=== PATIENT | female | born 1945 | race Caucasian/White ===

== ENCOUNTER → 2019-12-15 13:14 | Outpatient (CLI) | payer MEDICARE, SELFPAY ==
--- NOTE | ~2019-12-15 | MM_ITS ---
EXAMINATION: MM screening benedicto BI w [facility] HISTORY: Screening mammogram TECHNIQUE: Craniocaudal and mediolateral oblique 3-D tomosynthesis images were obtained and synthetic 2-D images were generated. CAD analysis was submitted and interpreted. COMPARISON: 05/14/2018 bilateral diagnostic mammogram and limited left breast ultrasound 05/19/2011 bilateral diagnostic digital mammogram 09/29/2014 bilateral digital screening mammogram BREAST PARENCHYMAL COMPOSITION: There are scattered areas of fibroglandular density. FINDINGS: There is a 5 mm mass with possible spiculation in the posterior lower inner right breast (M LO Tomosynthesis 48/77). Diagnostic right mammogram and right breast ultrasound examination are recom mended for further evaluation of this abnormality. Otherwise there is no evidence of suspicious mass, calcification, or architectural distortion to sugg est malignancy in either breast. There has been no suspicious interval change. IMPRESSION: 1. 5 mm mass in posterior lower inner right breast 2. Diagnostic right mammogram and right breast ultrasound examination are recommended. BI-RADS Category 0: Incomplete: Needs additional imaging evaluation. Reviewed, dictated and finalized at location A. IMPRESSION: 1. 5 mm mass in posterior lower inner right breast 2. Diagnostic right mammogram and right breast ultrasound examination are recom mended. BI-RADS Category 0: Incomplete: Needs additional imaging evaluation.
--- NOTE | ~2019-12-15 | DEXA_ITS ---
Bone Density Report Name: Radha Castellanos Age: 74 Sex: Female Ethnicity: White Date of : 1945 Indication: osteopenia; height loss; postmenopausal Referring Provider: Stef Luciano Study: Bone densitometry was performed. Exam Date: December 15, 2019 Accession number: [id number] Bone Density: Region BMD T-score Z-score Classification AP Spine (L1, L2) 0.917 -0.6 1.6 Normal Femoral Neck (Left) 0.629 -2.0 0.0 Osteopenia Total Hip (Left) 0.745 -1.6 0.1 Osteopenia Femoral Neck (Right) 0.656 -1.7 0.3 Osteopenia Total Hip (Right) 0.756 -1.5 0.2 Osteopenia Total Hip Mean 0.751 -1.6 0.2 Osteopenia World Health Organization criteria for BMD impression classify patients as: Normal (T-score at or above -1.0), Osteopenia (T-score between -1.0 and -2.5), or Osteoporosis (T-score at or below -2.5). 10-year Fracture Risk(1): Major Osteoporotic Fracture 12% Hip Fracture 2.7% Reported Risk Factors: [place] (), Neck BMD=0.629, BMI=30.9 (1) FRAX(R) Version 3.08. Fracture probability calculated for an untreated patient. Fracture probability may be lower if the patient has received treatment. Previous Exams: Region Exam Age BMD T-score BMD Change BMD Change Date g/cm2 vs Baseline vs Previous AP Spine(L1, L2) 12/15/2019 74 0.917 -0.6 0.012 -0.049* 11/02/2016 71 0.966 -0.1 0.061* 0.061* 09/29/2014 69 0.905 -0.7 Total Hip(Left) 12/15/2019 74 0.745 -1.6 -0.097* -0.099* 11/02/2016 71 0.844 -0.8 0.002 0.002 09/29/2014 69 0.842 -0.8 Total Hip(Right) 12/15/2019 74 0.756 -1.5 -0.054* -0.036* 11/02/2016 71 0.792 -1.2 -0.017 -0.017 09/29/2014 69 0.810 -1.1 *Denotes significance at 95% confidence level, LSC for AP Spine = 0.022 g/cm2, LSC for Total Hip = 0.027 g/cm2 Clinical Information Provided by Patient: Has used the following medications: Vitamin D, Calcium Patient maximum height was 66.5 Menopause Age: 59 No regular weight bearing exercise Drinks caffeinated beverages Onset of menses at age 11 Number of children 2 Impression: The patient has low bone mass, based on the Left Femoral Neck T-score. The patient has an estimated ten-year risk of hip fracture of 2.7% and an estimated ten-year risk of major fracture of 12%, based on the WHO FRAX algorithm. The BMD for the AP Spine(L1, L2) decreased, robins
== END ==
PROVIDERS: PCP Family Medicine; Visit Provider Family Medicine
DX: Z12.31 Encounter for screening mammogram for malignant neoplasm of breast (principal); N63.14 Unspecified lump in the right breast, lower inner quadrant; Z78.0 Asymptomatic menopausal state; M85.852 Other specified disorders of bone density and structure, left thigh; M85.851 Other specified disorders of bone density and structure, right thigh
CPT/HCPCS: 77063; 77067; 77080

== ENCOUNTER → 2019-12-29 07:34 | Outpatient (CLI) | payer MEDICARE, SELFPAY ==
--- NOTE | ~2019-12-29 | MMUS_ITS ---
EXAMINATION: MM diagnostic mammo unilat RT, US breast RT limited HISTORY: Right breast mass on screening mammogram TECHNIQUE: Additional 3-D tomosynthesis images of the right breast were performed and synthetic 2-D i mages were generated. CAD analysis was submitted and interpreted. High resolution limited right breas t ultrasound was performed. COMPARISON: 12/15/2019, 05/14/2018, 09/29/2014 FINDINGS: MAMMOGRAPHIC FINDINGS: There is a 5 mm round, equal density mass with possible spiculated margins in the middle third of inn er breast at the 3:00 location 6 cm deep to the nipple. ULTRASOUND: There is a 5 mm round, hypoechoic mass with indistinct margins and posterior acoustic shadowing in th e 3:00 location 4 cm from the nipple. No definite internal vascularity is identified. IMPRESSION: 1. Suspicious right breast mass. 2. Ultrasound-guided biopsy is recommended. BI-RADS category 4, suspicious findings. Reviewed, dictated and finalized at location A. IMPRESSION: 1. Suspicious right breast mass. 2. Ultrasound-guided biopsy is recommended. BI-RADS category 4, suspicious findings.
== END ==
PROVIDERS: PCP Family Medicine; Visit Provider Family Medicine
DX: R92.8 Other abnormal and inconclusive findings on diagnostic imaging of breast (principal)
CPT/HCPCS: 76642; 77065

== ENCOUNTER 2020-05-29 20:59 | Emergency (ER) | payer MEDICARE, SELFPAY ==
--- NOTE | ~2020-05-29 | XR_ITS ---
EXAMINATION: XR chest 2V DATE: 05/29/2020 21:20 INDICATION: Heart palpitations. TECHNIQUE: Frontal and lateral views of the chest were obtained. COMPARISON: Chest 2 views 08/29/2016 FINDINGS: A calcified right lung nodule is consistent with old granulomatous disease. There are mild airspace opacities in the lower lung zones. No pleural effusion or pneumothorax. Cardiomegaly is note d. There is a left shoulder arthroplasty. There are surgical clips in the anterior chest. IMPRESSION: 1. Mild airspace opacities in the lower lung zones, consistent with atelectasis or less likely pneumo tiffanie. 2. Cardiomegaly. Reviewed, dictated and finalized at location A. INSTALLER IMPRESSION: 1. Mild airspace opacities in the lower lung zones, consistent with atelectasis or less likely pneumonia. 2. Cardiomegaly.
[2020-05-29 21:03] VITALS: BP 185/116; PULSE 120; RESP 18; TEMP 36.4; O2SAT 97
--- NOTE | 2020-05-29 21:05 | ECG_ITS ---
Measurements Intervals [place] Rate: 97 P: FL: 0 QRS: -32 QRSD: 118 T: 114 QT: 375 QTc: 478 Interpretive Statements ATRIAL FIBRILLATION LEFT AXIS DEVIATION INTRAVENTRICULAR CONDUCTION DELAY LEFT VENTRICULAR HYPERTROPHY WITH ST-T CHANGE BORDERLINE R WAVE PROGRESSION, ANTERIOR LEADS ABNORMAL ECG Electronically Signed On 05-30-2020 7:55:49 CURTAIN INSPECTOR by Hao Dill D.O.
[2020-05-29 21:20] LABS: Basophils Percent Auto 0.5 % (0.2-1.2); Eosinophils Absolute Auto 0.3 K/mm3 (0-0.3); Eosinophils Percent Auto 3.2 % (0-4.4); Hematocrit 45.5 % (37.0-47.0); Hemoglobin 15.2 g/dL (12.0-15.0); Immature Granulocyte Absolute 0.02 K/mm3 (0.00-0.031); Immature Granulocyte Percent A 0.2 % (0-0.5); Lymphocytes Absolute Auto 2.85 K/mm3 (0.9-3.2); Lymphocytes Percent Auto 33.3 % (18.3-44.2); Mean Corpuscular HGB Conc 33.4 g/dl (32-36); Mean Corpuscular Hemoglobin 30.2 pg (26-34); Mean Corpuscular Volume 90.3 fl (80-100); Mean Platelet Volume 8.9 fl (7.4-10.4); Monocytes Absolute Auto 0.8 K/mm3 (0.1-0.6); Monocytes Percent Auto 9.4 % (2.6-8.5); Neutrophils Absolute Auto 4.6 K/mm3 (1.3-6.7); Neutrophils Percent Auto 53.4 % (45.5-73.1); Platelet Count Result 311 k/mm3 (150-375); Red Blood Count 5.04 M/mm3 (4.2-5.4); Red Cell Distribution Width 12.9 % (11.5-14.5); White Blood Count 8.6 K/mm3 (4.5-10.0)
[2020-05-29 21:29] LABS: INR 1.2; Prothrombin Time 16.1 Seconds (11.1-14.7)
--- NOTE | 2020-05-29 21:29 | ED.CHESTPAIN ---
HPI - Chest Pain General Chief Complaint: Chest Pain Stated Complaint: tightness in throat, heart racing. Time Seen by Provider: 05/29/20 21:04 Source: RN notes reviewed History of Present Illness HPI narrative: Patient presents emergency department from home for atrial fibrillation. Patient states she has history of paroxysmal atrial fibrillation she states that she got into A. fib last night and then to resolved on its own she states that this evening approximate hour ago she began to feel some tightness in her throat and felt that her heart again became irregular and faster she states she has taken all her medications today as prescribed and she is followed by Dr. Clark that [facility] for cardiology patient is on Eliquis which she has been taking she denies any fevers or chills shortness of breath abdominal pain nausea vomiting or any other symptoms. Patient states that she did just recently received radiation therapy for breast cancer Related Data Home Medications Medication Instructions Recorded Confirmed apixaban 5 mg tablet 5 mg PO BID 02/17/19 05/10/20 aspirin 81 mg tablet,delayed 81 mg PO DAILY 02/17/19 05/10/20 release cholecalciferol (vitamin D3) 50 2,000 unit PO DAILY 02/17/19 05/10/20 mcg (2,000 unit) tablet fluticasone propionate 50 2 spray NASAL DAILY 02/17/19 05/10/20 mcg/actuation nasal spray,suspension fyukzvjh-sgi-brseu ac 400 tablet PO 02/17/19 05/10/20 mcg-calcium carb 500 mg-vit K1 20 mcg tablet anastrozole 1 mg tablet 1 mg PO DAILY 05/10/20 05/10/20 Allergies Allergy/AdvReac Type Severity Reaction Status Date / Time esomeprazole Allergy Severe Itching Verified 05/29/20 21:28 lisinopril Allergy Severe coughing Verified 05/29/20 21:28 prob losartan Allergy Intermediate Unknown Verified 05/29/20 21:28 omeprazole Allergy Intermediate ITCHING Verified 05/29/20 21:28 Akqauml-Jve-Uzf Reductase Allergy Mild LEG PAIN Verified 05/29/20 21:28 Inhibitor Review of Systems Review of Systems: Narrative: Gen.: Denies fevers or chills ENT: Denies congestion Respiratory: Denies shortness of breath or cough CV: See HPI GI: Denies abdominal pain nausea, emesis or diarrhea Musculoskeletal: Denies back pain or muscle pain Neuro: Denies numbness, tingling, weakness or focal weakness Skin: Denies rash Except as documented, all other systems reviewed and negative [facility] Past Medical History Medical History Afib Sleep apnea, unspecified Wellness examination Surgical History Surgical History History of adenoidectomy History of bladder suspension procedure History of bunionectomy History of foot surgery History of nasal septoplasty History of shoulder replacement History of sinus surgery History of tonsillectomy Family History Family History Father Hypertension Patient's father is Family history of coronary artery disease Family history of heart disease in male family member before age 55 Sibling Patient's sister is in good health Patient's brother is in good health Family history of malignant neoplasm No family history of cardiovascular disease Patient's sister is Family history of cardiovascular disease, Onset Age: 75 Family history of lupus erythematosus Family history of pancreatic cancer Family history of coronary artery disease Family history of malignant neoplasm of stomach Family history of scoliosis Family history of heart disease in male family member before age 55 Mother Family history of heart disease in male family member before age 55 Patient's mother is Family history of coronary artery disease Grandparent Family history of heart disease in male family member before age 55 Social History Social History (Reviewed 05/29/20 @ 21:30 by Glynn Childers
[2020-05-29 21:30] LABS: Partial Thromboplastin Time 38.3 SECONDS (22.3-36.8)
[2020-05-29 21:31] LABS: Anion Gap 7 mmol/L (8-16); Blood Urea Nitrogen 19 mg/dL (7-17); Calcium 9.4 mg/dL (8.4-10.2); Carbon Dioxide 31 mmol/L (22-30); Chloride 100 mmol/L (98-107); Estimated CRCL calculation 53 ml/min; Estimated Glomerular Filt Rate > 60; Glucose 99 mg/dL (65-105); Potassium 3.5 mmol/L (3.4-5.0); Sodium 138 mmol/L (137-145)
[2020-05-29] MEDS: ASPIRIN 81 MG CHEWABLE TABLET 324 MG PO (21:38)
[2020-05-29 21:43] LABS: Troponin I < 0.012 ng/mL (0.000-0.034)
[2020-05-29] MEDS: dilTIAZem HCl INJ 25 MG/5 ML VIAL 5 MG IV PUSH (22:22)
[2020-05-29 22:27] VITALS: BP 115/73; PULSE 94; RESP 23; O2SAT 95
--- NOTE | 2020-05-29 23:10 | ECG_ITS ---
Measurements Intervals [place] Rate: 69 P: 46 [place]: 249 QRS: -35 QRSD: 113 T: 102 QT: 411 QTc: 442 Interpretive Statements SINUS RHYTHM WITH FIRST DEGREE AV BLOCK LEFT AXIS DEVIATION LEFT VENTRICULAR HYPERTROPHY WITH ST-T CHANGE BORDERLINE R WAVE PROGRESSION, ANTERIOR LEADS ABNORMAL ECG Electronically Signed On 05-30-2020 7:58:22 PHYSICAL THERAPY INSTRUCTOR by Hao Dill D.O.
[2020-05-29 23:11] VITALS: BP 130/75; PULSE 71; RESP 24; O2SAT 93
[2020-05-29 23:36] VITALS: BP 112/55; PULSE 69; RESP 20; O2SAT 94
[2020-05-30 00:16] VITALS: BP 127/61; PULSE 60; RESP 20; O2SAT 94
[2020-05-30 00:38] LABS: Troponin I < 0.012 ng/mL (0.000-0.034)
== END 2020-05-30 01:16 | disposition home or self-care (01) ==
PROVIDERS: Emergency Provider Emergency Medicine; PCP Family Medicine
DX: I48.0 Paroxysmal atrial fibrillation (principal); Z79.82 Long term (current) use of aspirin; Z79.01 Long term (current) use of anticoagulants; G47.30 Sleep apnea, unspecified; Z96.619 Presence of unspecified artificial shoulder joint
CPT/HCPCS: 36415; 71046; 80048; 84484; 85025; 85610; 85730; 93005; 96374; 99284; A9270

== ENCOUNTER 2021-03-04 09:08 | Outpatient (CLI) | payer MEDICARE, SELFPAY ==
--- NOTE | ~2021-03-04 | XR_ITS ---
XR chest 2V 03/04/2021 09:31 Indication: Cough Procedure: 2 view chest Comparison: Comparison to multiple prior studies sequentially, with oldest reviewed study dated 06/2015. Findings: Borderline heart size. There is lingular and right lower lobe atelectasis. There are cholec ystectomy clips. Calcified granuloma right mid thorax. No focal pneumonia, edema, pleural effusion or pneumothorax. There is a left shoulder arthroplasty. Impression: 1: Bibasilar atelectasis. Reviewed, dictated and finalized at location A. [place] ASSOCIATE MANAGER BILINGUAL Impression: 1: Bibasilar atelectasis.
== END 2021-03-04 09:09 | disposition home or self-care (01) ==
LOC: ANHIMG 09:16
PROVIDERS: PCP Family Medicine; Visit Provider Family Medicine
DX: R05.9 Cough, unspecified (principal); J98.11 Atelectasis
CPT/HCPCS: 71046

== ENCOUNTER 2021-03-15 14:15 | Outpatient (CLI) | payer MEDICARE, SELFPAY | END 2021-03-15 14:16 | disposition home or self-care (01) | PROVIDERS: PCP Family Medicine; Visit Provider Physician Assistant | DX: R05.9 Cough, unspecified (principal); R11.10 Vomiting, unspecified | CPT/HCPCS: 87081 ==

== ENCOUNTER 2021-04-18 10:22 | Outpatient (CLI) | payer MEDICARE, SELFPAY ==
--- NOTE | ~2021-04-18 | XR_ITS ---
EXAMINATION: XR barium swallow modified DATE: 04/18/2021 11:25 INDICATION: Dysphagia. TECHNIQUE: The patient was given barium-containing material of multiple consistencies to swallow by susanne chawla speech pathologist while I performed fluoroscopy. Dose-area product was 1.097 Gy-cm2. 1.7 minutes fluoroscopy time FINDINGS: Oral Stage: Within functional limits Pharyngeal Phase: Within functional limits Cervical/Esophageal Stage: Within functional limits IMPRESSION: Modified esophagram findings as above. Please refer to the speech therapy report for [facility] recommendations. Reviewed, dictated and finalized at Location A. Reviewed, dictated and finalized at location A. OPERATOR IMPRESSION: Modified esophagram findings as above. Please refer to the speech t herapy report for specific recommendations.
--- NOTE | 2021-04-18 11:42 | STOPEVAL ---
Thank you for referring Radha Castellanos to [facility].? Attending Provider: CULLEN Park Assessment Status Evaluation Outpatient Past Medical History Past Medical History No Past Medical/Surgical History Patient/Family Denies Significant Past Medical/ Surgical History Source of Past Medical History Patient Evaluation Information Problem Diagnosis Cough Onset 02/21/21 Subjective Information Patient reports she began Query Text:As Reported By Patient/ coughing frequently on 02/21 Family or 02/22 and coughed until 03/24 . She reports that her physician placed her on Omeprazole at that time and it significantly decreased the cough. She reports she feels like there is something in her throat causing her to have to clear her throat frequently and that occasionally when she swallows, she cannot catch her breath. She denies difficulty swallowing food but occasionally has difficulty swallowing liquids. Pain Assessment Timing of Pain Assessment Timing of Pain Assessment Assessment Self Report Self Report Pain Level 0 Pain Score Pain Score 0: Self Report ST Clinical Summary Clinical Summary ST Clinical Summary MODIFIED BARIUM SWALLOW Results indicate this patient' s swallowing skills are within normal limits. Of note was esophageal residue in the cervical esophagus (top 1/3rd of the esophagus) that required extra time to drain after swallowing. This may require additional evaluation to determine if this contributes to patient's complaints. Basic reflux guidelines were discussed including small meals and snacks, small bites and sips, allow time after each swallow for residual to clear, avoid spicy foods, caffeine, and citrus foods. Patient voiced understanding of recommendations. She is
--- NOTE | 2021-04-18 15:47 | STOPEVAL ---
Thank you for referring Radha Castellanos to [facility].? Attending Provider: Denise Guadalupe, PAC Therapy Assessment Status Assessment Status Assessment Status Evaluation Outpatient Past Medical History Past Medical History No Past Medical/Surgical History Patient/Family Denies Significant Past Medical/ Surgical History Source of Past Medical History Patient Evaluation Information Problem Diagnosis Cough Onset 02/21/21 Subjective Information Patient reports she began Query Text:As Reported By Patient/ coughing frequently on 02/21 Family or 02/22 and coughed until 03/24 . She reports that her physician placed her on Omeprazole at that time and it significantly decreased the cough. She reports she feels like there is something in her throat causing her to have to clear her throat frequently and that occasionally when she swallows, she cannot catch her breath. She denies difficulty swallowing food and that occasionally, she has difficulty swallowing liquids. Pain Assessment Timing of Pain Assessment Timing of Pain Assessment Assessment Self Report Self Report Pain Level 0 Pain Score Pain Score 0: Self Report Modified Barium Swallow Evaluation Consistency Solid Consistency 5 mL Method of Presentation Spoon Oral Preparatory Symptoms Within Functional Limits Oral Phase Symptoms Within Functional Limits Pharyngeal Phase Symptoms Within Functional Limits Severity of Vallecular Residue None - 0% No Residue Severity of Pyriform Sinus Residue None - 0% No Residue 8 Point Laryngeal Penetration-Aspiration Material Does Not Enter Airway Scale Cervical/Esophageal Symptoms Within Functional Limits Cervical/Esophageal Phase Comments trace residue in cervical esophagus Mixed Consistency 5 mL Method of Presentation Spoon Oral Preparatory Symptoms Within Functional Limits Oral Phase Symptoms Within Functional Limits, Premature Spillage Pharyngeal Phase Symptoms Within Functional Limits Severity of Vallecular Residue None - 0% No Residue Severity of Pyriform Sinus Residue None - 0% No Residue 8 Point Laryngeal Penetration-Aspiration Material Does Not Enter Airway Scale Cervical/Esophageal Symptoms Within Functional Limits Pureed Consistency 5 mL Method of Presentation Spoon
== END 2021-04-18 10:23 | disposition home or self-care (01) ==
LOC: ANHIMG 10:26
PROVIDERS: PCP Family Medicine; Visit Provider Physician Assistant
DX: R05.9 Cough, unspecified (principal)
CPT/HCPCS: 92611

== ENCOUNTER → 2022-02-01 12:11 | Outpatient (CLI) | payer MEDICARE, SELFPAY ==
--- NOTE | ~2022-02-01 | DEXA_ITS ---
Bone Density Report Name: JOHN LINO Age: 76 Sex: Female Ethnicity: White Date of : 1945 Indication: osteopenia; height loss; cancer; postmenopausal Referring Provider: ANGELICA CAPPS Study: Bone densitometry was performed. Exam Date: February 01, 2022 Accession number: [id number] Bone Density: Region BMD T-score Z-score Classification AP Spine (L1, L2) 1.007 0.3 2.6 Normal Femoral Neck (Left) 0.675 -1.6 0.6 Osteopenia Total Hip (Left) 0.807 -1.1 0.7 Osteopenia Femoral Neck (Right) 0.656 -1.7 0.4 Osteopenia Total Hip (Right) 0.763 -1.5 0.4 Osteopenia Total Hip Mean 0.785 -1.3 0.6 Osteopenia World Health Organization criteria for BMD impression classify patients as: Normal (T-score at or above -1.0), Osteopenia (T-score between -1.0 and -2.5), or Osteoporosis (T-score at or below -2.5). 10-year Fracture Risk(1): Major Osteoporotic Fracture 12% Hip Fracture 2.6% Reported Risk Factors: [place] (), Neck BMD=0.656, BMI=33.1 (1) FRAX(R) Version 3.08. Fracture probability calculated for an untreated patient. Fracture probability may be lower if the patient has received treatment. Previous Exams: Region Exam Age BMD T-score BMD Change BMD Change Date g/cm2 vs Baseline vs Previous AP Spine(L1, L2) 02/01/2022 76 1.007 0.3 0.102* 0.090* 12/15/2019 74 0.917 -0.6 0.012 -0.049* 11/02/2016 71 0.966 -0.1 0.061* 0.061* 09/29/2014 69 0.905 -0.7 Total Hip(Left) 02/01/2022 76 0.807 -1.1 -0.036* 0.061* 12/15/2019 74 0.745 -1.6 -0.097* -0.099* 11/02/2016 71 0.844 -0.8 0.002 0.002 09/29/2014 69 0.842 -0.8 Total Hip(Right) 02/01/2022 76 0.763 -1.5 -0.046* 0.007 12/15/2019 74 0.756 -1.5 -0.054* -0.036* 11/02/2016 71 0.792 -1.2 -0.017 -0.017 09/29/2014 69 0.810 -1.1 *Denotes significance at 95% confidence level, LSC for AP Spine = 0.022 g/cm2, LSC for Total Hip = 0.027 g/cm2 Clinical Information Provided by Patient: Has used the following medications: Vitamin D, Calcium Has the following medical conditions: Cancer Patient maximum height was 66.5 Menopause Age: 59 No regular weight bearing exercise Onset of menses at age 11 Number of children 2 Impression: The patient has low bone mass, based on the Right Femoral N
== END ==
PROVIDERS: PCP Family Medicine; Visit Provider Physician Assistant
DX: M85.852 Other specified disorders of bone density and structure, left thigh (principal); M85.851 Other specified disorders of bone density and structure, right thigh
CPT/HCPCS: 77080

== ENCOUNTER 2022-05-26 14:16 | Outpatient (CLI) | payer MEDICARE, SELFPAY ==
--- NOTE | ~2022-05-26 | XR_ITS ---
EXAMINATION: XR chest 2V DATE: 05/26/2022 14:37 INDICATION: Productive cough x2 weeks of pharyngitis TECHNIQUE: PA and lateral views of the chest were obtained. COMPARISON: Chest radiograph dated 03/04/21 FINDINGS: Unchanged small band of lingular atelectasis/scarring near the apex of the heart. Calcified nodule in the right midlung zone and calcified right hilar lymph nodes consistent with old granulomatous disea se. No other airspace opacities, pulmonary edema, pleural effusion or pneumothorax. Medically. Tortuo us thoracic aorta. Surgical clips at the right breast and right axilla suggesting prior breast excisi onal biopsy and axillary lymph node dissection. Left total shoulder arthroplasty. Mild S-shaped scoli osis of the thoracolumbar spine with mild to moderate spondylosis. IMPRESSION: 1. Unchanged mild lingular atelectasis/scarring. No acute cardiopulmonary disease. 2. Cardiomegaly. Reviewed, dictated and finalized at location A. PMENT STERILIZER IMPRESSION: 1. Unchanged mild lingular atelectasis/scarring. No acute cardiopulmonary disea se. 2. Cardiomegaly.
== END 2022-05-26 14:17 | disposition home or self-care (01) ==
LOC: ANHIMG 14:21
PROVIDERS: PCP Family Medicine; Visit Provider Physician Assistant
DX: R05.9 Cough, unspecified (principal); I51.7 Cardiomegaly
CPT/HCPCS: 71046

== ENCOUNTER 2022-06-27 01:30 | Day surgery (SDC) | payer MEDICARE, SELFPAY ==
[2022-06-19 12:10] VITALS: BMI 29.9
[2022-06-27 10:30] VITALS: BP 138/64; PULSE 63; RESP 20; TEMP 36.6; O2SAT 98; BMI 30.3
[2022-06-27] MEDS: LACTATED RINGERS 1,000 ML 150 ML IV CONT (10:45)
--- NOTE | 2022-06-27 10:58 | PM.HPGS ---
History of Present Illness History of Present Illness Consent: Risks, benefits, and alternatives have been discussed and questions answered. Patient agrees to proceed with procedure. Chief complaint: GERD Narrative: Radha Castellanos is a 77 year old female Referred for EGD. Patient complains of excess saliva and raspy voice. She also complains of occasional sour taste in her mouth in the mornings. She denies any shaquille regurgitation sensation. She has no heartburn. Recently was given a trial of pantoprazole 40mg p.o. b.i.d. and famotidine at bedtime. She felt that the famotidine helped to a small degree. Patient denies any difficulty swallowing. She has had no weight loss or bleeding. EGD is requested to assess these constellation of symptoms. Family history noncontributory. Review of Systems Review of Systems: Review of systems noncontributory. [facility] Past Medical History Medical History Afib NSTEMI (non-ST elevated myocardial infarction) Sleep apnea, unspecified Wellness examination Surgical History Surgical History History of adenoidectomy History of bladder suspension procedure History of bunionectomy History of foot surgery History of nasal septoplasty History of shoulder replacement History of sinus surgery History of tonsillectomy Family History Family History Father Hypertension Patient's father is Family history of coronary artery disease Family history of heart disease in male family member before age 55 Sibling Patient's sister is in good health Patient's brother is in good health Family history of malignant neoplasm No family history of cardiovascular disease Patient's sister is Family history of cardiovascular disease, Onset Age: 75 Family history of lupus erythematosus Family history of pancreatic cancer Family history of coronary artery disease Family history of malignant neoplasm of stomach Family history of scoliosis Family history of heart disease in male family member before age 55 Mother Family history of heart disease in male family member before age 55 Patient's mother is Family history of coronary artery disease Grandparent Family history of heart disease in male family member before age 55 Social History Social History Social History: Smoking status: Never smoker Second hand tobacco smoke exposure: No Alcohol intake: never Substance use: never Substance use type: does not use Living arrangements: alone Occupation/Education: retired Gender identity (if verbalized by the patient): Female Sexual Orientation (if Verbalized by the Patient): Straight or Heterosexual Spiritual care concerns: No Meds Home Medications and Allergies Home Medications Medication Instructions Recorded Confirmed Type xfahgyxp-eiz-huceo ac 400 1 tablet PO DAILY 02/17/19 06/19/22 History mcg-calcium carb 500 mg-vit K1 20 mcg tablet (Women's 50 Plus Multivitamin) tamoxifen 20 mg tablet 20 mg PO DAILY 11/08/20 06/19/22 History vit C 250 mg-vit E 90 mg-zinc 40 1 tablet PO BID 07/05/21 06/19/22 History mg-copper 1 cx-zdeawz-xcwlru capsule (PreserVision AREDS-2) calcium carbonate 600 mg-vitamin 1 cap PO BID 09/01/21 06/19/22 History D3 12.5 mcg (500 unit) capsule (Calcium 600 with Vitamin D3) carboxymethylcellulose sodium 0.5 1 drp EACH EYE QID PRN Dry Eye(S) 09/01/21 06/19/22 History % eye drops in a dropperette (Refresh Plus) apixaban 5 mg tablet 5 mg Tablet#56 Samples 10/20/21 06/19/22 Sample tramadol 50 mg tablet 50 mg PO Q8H PRN pain #30 tabs 10/20/21 06/19/22 Rx sotalol 80 mg tablet 40 mg PO BID 11/10/21 06/19/22 History hydrochlorothiazide 25 mg tablet 25 mg PO DAILY #90 tabs
--- NOTE | 2022-06-27 11:29 | WPDANESEPPF ---
Anes - Initial Pre Proc Eval Procedure: Operation Date: 06/27/22 11:30 Proposed Procedures p Esophagogastroduodenoscopy - Samy Kwon MD Date/Time: 06/27/22 11:29 Surgeon: Samy Kwon MD Pre Op Diagnosis: GERD Patient Data Age: 77 Gender: F Height: 1.68 m Weight: 85.3 kg Last Vital Signs Temp 97.8 F 06/27/22 10:30 Pulse 63 06/27/22 10:30 Resp 20 06/27/22 10:30 BP 138/64 06/27/22 10:30 Pulse Ox 98 06/27/22 10:30 O2 Del Method Room Air 06/27/22 10:30 Allergies Allergy/AdvReac Type Severity Reaction Status Date / Time acetaminophen [From Vicodin] Allergy Severe Other Verified 06/27/22 10:29 esomeprazole Allergy Severe Itching Verified 06/27/22 10:29 hydrocodone [From Vicodin] Allergy Severe Other Verified 06/27/22 10:29 lisinopril Allergy Severe coughing Verified 06/27/22 10:29 prob niacin Allergy Severe Redness of Verified 06/27/22 10:29 Skin omeprazole Allergy Severe ITCHING Verified 06/27/22 10:29 amlodipine Allergy Intermediate lower Verified 06/27/22 10:29 extremity edema chlorhexidine Allergy Intermediate Rash Verified 06/27/22 10:29 [From Hibiclens] losartan Allergy Intermediate Itching Verified 06/27/22 10:29 Mmssskw-QIS-RgO Reductase Allergy Intermediate LEG PAIN Verified 06/27/22 10:29 Inhibitor [Hbknkgn-Vjy-Acb Reductase Inhibitor] EKG PATCHES Allergy Severe Blister Uncoded 06/27/22 10:29 Home Medications Medication Instructions Recorded Confirmed Type brvuzaip-wxr-vawfx ac 400 1 tablet PO DAILY 02/17/19 06/19/22 History mcg-calcium carb 500 mg-vit K1 20 mcg tablet (Women's 50 Plus Multivitamin) tamoxifen 20 mg tablet 20 mg PO DAILY 11/08/20 06/19/22 History vit C 250 mg-vit E 90 mg-zinc 40 1 tablet PO BID 07/05/21 06/19/22 History mg-copper 1 mv-mtllqy-uvzxdf capsule (PreserVision AREDS-2) calcium carbonate 600 mg-vitamin 1 cap PO BID 09/01/21 06/19/22 History D3 12.5 mcg (500 unit) capsule (Calcium 600 with Vitamin D3) carboxymethylcellulose sodium 0.5 1 drp EACH EYE QID PRN Dry Eye(S) 09/01/21 06/19/22 History % eye drops in a dropperette (Refresh Plus) apixaban 5 mg tablet 5 mg Tablet#56 Samples 10/20/21 06/19/22 Sample tramadol 50 mg tablet 50 mg PO Q8H PRN pain #30 tabs 10/20/21 06/19/22 Rx sotalol 80 mg tablet 40 mg PO BID 11/10/21 06/19/22 History hydrochlorothiazide 25 mg tablet 25 mg PO DAILY #90 tabs 04/19/22 06/19/22 Rx spironolactone 25 mg tablet 25 mg PO DAILY #90 tabs 04/19/22 06/19/22 Rx pantoprazole 40 mg tablet,delayed 40 mg PO BID #180 tabs 06/12/22 06/19/22 Rx release ammonium lactate 12 % topical cream 1 applic topical DAILY PRN DRYNESS 06/19/22 06/19/22 History ascorbic acid (vitamin C) 2,000 mg 2,000 mg PO DAILY 06/19/22 06/19/22 History tablet,extended release diphenhydramine 25 2 tablet PO HS 06/19/22 06/19/22 History mg-acetaminophen 500 mg tablet (Tylenol PM Extra Strength) famotidine 40 mg tablet 40 mg PO HS 06/19/22 06/19/22 History fluticasone propionate 50 1 spray intranasal DAILY PRN 06/19/22 06/19/22 History mcg/actuation nasal Congestion spray,suspension phenolphthalein-docusate sodium 65 1 tablet PO HS PRN Constipation 06/19/22 06/19/22 History mg-100 mg tablet Patient hx anesthesia problems: none Family hx anesthesia problems: none Results Review: All pre-operative results and documents have been reviewed as part of the pre-operative evaluation. [facility] Past Medical History Medical History Afib NSTEMI (non-ST elevated myocardial infarction) Sleep apnea, unspecified Wellness examination Surgical History Surgical History History of adenoidectomy History of bladder suspension procedure History of bunionectomy History of foot surgery History of nasal septoplasty History of shoulder replacement History of sinus neal
[2022-06-27 11:46] VITALS: BP 101/57; PULSE 53; RESP 20; O2SAT 99
[2022-06-27 11:56] VITALS: BP 112/64; PULSE 54; RESP 20; O2SAT 97
[2022-06-27 12:06] VITALS: BP 146/66; PULSE 57; RESP 17; O2SAT 98
== END 2022-06-27 12:28 | disposition home or self-care (01) ==
PROVIDERS: PCP Family Medicine; Visit Provider Internal Medicine Gastroenterology
PROC: 0DJ08ZZ Inspection of Upper Intestinal Tract, Via Natural or Artificial Opening Endoscopic (ICD-10-PCS; CPT 43235; principal; 2022-06-27 11:30)
DX: K21.9 Gastro-esophageal reflux disease without esophagitis (principal); I48.91 Unspecified atrial fibrillation; I25.2 Old myocardial infarction; G47.30 Sleep apnea, unspecified; Z79.01 Long term (current) use of anticoagulants
CPT/HCPCS: 43239; 87081; J2704; J7120

== ENCOUNTER → 2022-09-12 14:19 | Outpatient (CLI) | payer MEDICARE, SELFPAY ==
--- NOTE | ~2022-09-12 | XR_ITS ---
XR ribs LT 2V w CXR 2V DATE: 09/12/2022 14:51 INDICATION: Left chest pain, pleurodynia TECHNIQUE: PA and lateral chest. 3 views of the left ribs. COMPARISON: None FINDINGS: Cardiomegaly. Aortic calcification, ectasia, unfolding. No pulmonary infiltrate or consolidation, pleural effusion or pulmonary vascular congestion or pneumo thorax. No left rib fracture or bone destruction is detected. Osteopenia. Mild thoracic dextroscoliosis. Mild degenerative spurring of the thoracic spine. There is prominent rotatory dextroscoliosis and multilevel degenerative disc disease of the lumbar sp ine. Right surgical clips right breast. Status post left glenohumeral joint replacement. IMPRESSION: No left rib fracture or bone destruction is detected Scoliosis and degenerative changes of the thoracic and lumbar spine Osteopenia Cardiomegaly, aortic atherosclerosis, ectasia Postoperative change of the right breast Status post left glenohumeral joint replacement Reviewed, dictated and finalized at location A.
== END ==
PROVIDERS: PCP Family Medicine; Visit Provider Physician Assistant
DX: R07.81 Pleurodynia (principal); M85.88 Other specified disorders of bone density and structure, other site; I51.7 Cardiomegaly; M41.9 Scoliosis, unspecified
CPT/HCPCS: 71046; 71100

== ENCOUNTER 2023-04-11 01:25 | Day surgery (SDC) | payer MEDICARE, SELFPAY ==
[2023-03-30 12:18] VITALS: BMI 30.7
--- NOTE | 2023-03-30 13:03 | PC.NURSE ---
Spoke with patient regarding medication Eliquis. Pt. verbalizes understanding that the last dose of _Eliquis is to be taken on 04/08/2023 and the Endoscopist will instruct them when to restart after the procedure.
--- NOTE | 2023-04-09 08:43 | SUR.PREOP ---
Patient called regarding upcoming procedure. Reviewed preop instructions, appointment times, and procedure prep.
[2023-04-11 07:12] VITALS: BP 102/49; PULSE 71; RESP 18; TEMP 36.5; O2SAT 97
[2023-04-11] MEDS: LACTATED RINGERS 1,000 ML 150 ML IV CONT (07:14)
--- NOTE | 2023-04-11 07:45 | WPDANESEPPF ---
Anes - Initial Pre Proc Eval Procedure: Operation Date: 04/11/23 08:00 Proposed Procedures p Colonoscopy - Teja Paige MD Date/Time: 04/11/23 07:45 Surgeon: Teja Paige MD Pre Op Diagnosis: hx colon polyps Patient Data Age: 78 Gender: F Height: 1.68 m Weight: 87 kg Last Vital Signs Temp 97.7 F 04/11/23 07:12 Pulse 71 04/11/23 07:12 Resp 18 04/11/23 07:12 BP 102/49 L 04/11/23 07:12 Pulse Ox 97 04/11/23 07:12 O2 Del Method Room Air 04/11/23 07:12 Allergies Allergy/AdvReac Type Severity Reaction Status Date / Time esomeprazole Allergy Severe Itching Verified 04/11/23 07:10 hydrocodone [From Vicodin] Allergy Severe Other Verified 04/11/23 07:10 lisinopril Allergy Severe coughing Verified 04/11/23 07:10 prob niacin Allergy Severe Redness of Verified 04/11/23 07:10 Skin omeprazole Allergy Severe ITCHING Verified 04/11/23 07:10 amlodipine Allergy Intermediate lower Verified 04/11/23 07:10 extremity edema chlorhexidine Allergy Intermediate Rash Verified 04/11/23 07:10 [From Hibiclens] losartan Allergy Intermediate Itching Verified 04/11/23 07:10 Bbviaui-XAS-QkV Reductase Allergy Intermediate LEG PAIN Verified 04/11/23 07:10 Inhibitor [Zfmothh-Zvl-Xtc Reductase Inhibitor] EKG PATCHES Allergy Severe Blister Uncoded 04/11/23 07:10 Home Medications Medication Instructions Recorded Confirmed Type pbuintoy-jur-rfvrx ac 400 1 tablet PO DAILY 02/17/19 03/30/23 History mcg-calcium carb 500 mg-vit K1 20 mcg tablet (Women's 50 Plus Multivitamin) tamoxifen 20 mg tablet 20 mg PO DAILY 11/08/20 03/30/23 History vit C 250 mg-vit E 90 mg-zinc 40 1 tablet PO BID 07/05/21 03/30/23 History mg-copper 1 cj-zfofxn-fwdacy capsule (PreserVision AREDS-2) calcium carbonate 600 mg-vitamin 1 cap PO BID 09/01/21 03/30/23 History D3 12.5 mcg (500 unit) capsule (Calcium 600 with Vitamin D3) carboxymethylcellulose sodium 0.5 1 drp EACH EYE QID PRN Dry Eye(S) 09/01/21 03/30/23 History % eye drops in a dropperette (Refresh Plus) sotalol 80 mg tablet 40 mg PO DAILY 11/10/21 03/30/23 History hydrochlorothiazide 25 mg tablet 25 mg PO DAILY #90 tabs 04/19/22 03/30/23 Rx spironolactone 25 mg tablet 25 mg PO DAILY #90 tabs 04/19/22 03/30/23 Rx ascorbic acid (vitamin C) 2,000 mg 2,000 mg PO DAILY 06/19/22 03/30/23 History tablet,extended release fluticasone propionate 50 1 spray intranasal DAILY PRN 06/19/22 03/30/23 History mcg/actuation nasal Congestion spray,suspension famotidine 40 mg tablet 40 mg PO HS #90 tabs 10/26/22 03/30/23 Rx baclofen 10 mg tablet 10 mg PO BID PRN muscle spasm #30 03/28/23 03/30/23 Rx tabs acetaminophen 650 mg 650 mg PO Q6H 03/30/23 03/30/23 History tablet,extended release apixaban 5 mg tablet (Eliquis) 5 mg PO BID 03/30/23 04/11/23 History Patient hx anesthesia problems: none Family hx anesthesia problems: none Results Review: All pre-operative results and documents have been reviewed as part of the pre-operative evaluation. [facility] Past Medical History Medical History Afib NSTEMI (non-ST elevated myocardial infarction) Sleep apnea, unspecified Wellness examination Surgical History Surgical History History of adenoidectomy History of bladder suspension procedure History of bunionectomy History of foot surgery History of nasal septoplasty History of shoulder replacement History of sinus surgery History of tonsillectomy Family History Family History Father Hypertension Patient's father is Family history of coronary artery disease Family history of heart disease in male family member before age 55 Sibling Patient's sister is in good health Patient's brother is in good health
--- NOTE | 2023-04-11 07:56 | PM.HPGS ---
History of Present Illness History of Present Illness Consent: Risks, benefits, and alternatives have been discussed and questions answered. Patient agrees to proceed with procedure. Chief complaint: hx colon polyps Narrative: Radha Castellanos is a 78 year old female with colon polyp 5 years ago Review of Systems Constitutional: Constitutional: Denies headache(s) and Denies weakness Eyes: Eyes: Denies blurry vision ENT: Reports Normal hearing present, Denies headache(s) and Denies neck pain Cardiovascular: Cardiovascular: Denies chest pain and Denies dyspnea Respiratory: Respiratory: Denies dyspnea Gastrointestinal: Gastrointestinal: Reports no additional gastrointestinal complaints Genitourinary: Genitourinary: Denies dysuria Musculoskeletal: Musculoskeletal: Denies neck pain Integumentary/Breasts: Skin/Breast: Denies dry skin Neurologic: Reports Normal hearing present, Denies headache(s) and Denies weakness Psychiatric: Psychiatric: Denies anxiety Endocrine: Endocrine: Denies change in body appearance Hematologic/Lymphatic: Hematologic/Lymphatic: Denies easy bleeding Allergic/Immunologic: Allergic/Immunologic: Denies urticaria [facility] Past Medical History Medical History (Updated 04/11/23 @ 07:57 by Teja Paige MD) Afib Colon polyp NSTEMI (non-ST elevated myocardial infarction) Sleep apnea, unspecified Wellness examination Surgical History Surgical History History of adenoidectomy History of bladder suspension procedure History of bunionectomy History of foot surgery History of nasal septoplasty History of shoulder replacement History of sinus surgery History of tonsillectomy Family History Family History Father Hypertension Patient's father is Family history of coronary artery disease Family history of heart disease in male family member before age 55 Sibling Patient's sister is in good health Patient's brother is in good health Family history of malignant neoplasm No family history of cardiovascular disease Patient's sister is Family history of cardiovascular disease, Onset Age: 75 Family history of lupus erythematosus Family history of pancreatic cancer Family history of coronary artery disease Family history of malignant neoplasm of stomach Family history of scoliosis Family history of heart disease in male family member before age 55 Mother Family history of heart disease in male family member before age 55 Patient's mother is Family history of coronary artery disease Grandparent Family history of heart disease in male family member before age 55 Social History Social History Social History: Smoking status: Never smoker Second hand tobacco smoke exposure: No Alcohol intake: never Substance use: never Substance use type: does not use Lack of Transportation: No Lack of Food: Never True Current Housing: I Have Housing Concerned About Future Housing: No Difficulty Paying Gas/Electric Bills: No Difficulty Paying for Meds: No Currently Unemployed: YES Education: Decline to Answer Difficulty w/ Childcare or Family Care: No Living arrangements: with family Occupation/Education: retired Gender identity (if verbalized by the patient): Female Sexual Orientation (if Verbalized by the Patient): Straight or Heterosexual Spiritual care concerns: No Meds Home Medications and Allergies Home Medications Medication Instructions Recorded Confirmed Type pqmultyu-pxl-ylavk ac 400 1 tablet PO DAILY 02/17/19 03/30/23 History mcg-calcium carb 500 mg-vit K1 20 mcg tablet (Women's 50 Plus Multivitamin) tamoxifen 20 mg tablet 20 mg PO DAILY 11/08/20 03/30/23 History vit C 250 mg-vit E 90 mg-zinc 40 1 table
[2023-04-11 08:25] VITALS: BP 117/55; PULSE 58; RESP 22; O2SAT 95
[2023-04-11 08:35] VITALS: BP 110/59; PULSE 59; RESP 21; O2SAT 98
[2023-04-11 08:45] VITALS: BP 135/59; PULSE 58; RESP 20; O2SAT 100
== END 2023-04-11 08:50 | disposition home or self-care (01) ==
PROVIDERS: PCP Family Medicine; Referring Provider Physician Assistant; Visit Provider Internal Medicine Gastroenterology
PROC: 0DJD8ZZ Inspection of Lower Intestinal Tract, Via Natural or Artificial Opening Endoscopic (ICD-10-PCS; CPT 45378; principal; 2023-04-11 08:00)
DX: Z12.11 Encounter for screening for malignant neoplasm of colon (principal); D12.4 Benign neoplasm of descending colon; K57.30 Diverticulosis of large intestine without perforation or abscess without bleeding; I48.91 Unspecified atrial fibrillation; I25.2 Old myocardial infarction; G47.30 Sleep apnea, unspecified; E66.9 Obesity, unspecified; Z68.31 Body mass index [BMI] 31.0-31.9, adult; Z79.810 Long term (current) use of selective estrogen receptor modulators (SERMs); Z79.01 Long term (current) use of anticoagulants
CPT/HCPCS: 45385; 88305; J2704; J7120

== ENCOUNTER 2023-08-09 10:47 | Outpatient (CLI) | payer MEDICARE, SELFPAY ==
--- NOTE | ~2023-08-09 | US_ITS ---
Renal-Bladder ultrasound Clinical History: Renal cyst Technique: Real-time sonographic imaging of the kidneys and urinary bladder was performed. Findings: The right kidney measures 9.7 cm in length and the left kidney measures 11.0 cm. There is n o hydronephrosis or renal calculus identified. Renal cortical echogenicity is within normal limits. R ight lower pole renal cyst measures 6.1 cm in diameter. The urinary bladder is moderately distended at the time of this exam. No intraluminal echoes are iden tified. No abnormal wall thickening is seen. Impression: 6.1 cm right lower pole renal cyst. Reviewed, dictated and finalized at location . Impression: 6.1 cm right lower pole renal cyst.
== END 2023-08-09 10:48 ==
LOC: MICIMG 10:48
PROVIDERS: PCP Physician Assistant; Visit Provider Physician Assistant
DX: N28.1 Cyst of kidney, acquired (principal)
CPT/HCPCS: 76775

== ENCOUNTER 2023-12-12 14:40 | Outpatient (CLI) | payer MEDICARE, SELFPAY ==
--- NOTE | ~2023-12-12 | XR_ITS ---
XR chest 2V Ordering provider: Kiara Chaudhari PA-C History: 78 years Female with . R07.81 - Pleurodynia . Comparison: September 12, 2022 FINDINGS: MEDIASTINUM: The cardiac silhouette is slightly enlarged. LUNGS: No infiltrates, effusions or pneumothorax. Calcified granuloma in the right midzone unchanged. OTHER: No free air under the diaphragm. Left shoulder arthroplasty. Degenerative the spine. S-shaped scoliosis. IMPRESSION: No acute cardiopulmonary pathology. Reviewed, dictated and finalized at location A.
== END 2023-12-12 14:41 | disposition home or self-care (01) ==
PROVIDERS: PCP Student in an Organized Health Care Education/Training Program; Visit Provider Student in an Organized Health Care Education/Training Program
DX: R07.81 Pleurodynia (principal)
CPT/HCPCS: 71046

== ENCOUNTER 2023-12-31 07:20 | Outpatient (CLI) | payer MEDICARE, SELFPAY ==
--- NOTE | ~2023-12-31 | XR_ITS ---
3 VIEWS THORACIC SPINE Ordering provider: Kiara Chaudhari PA-C History: . R07.81 - Pleurodynia . Comparison: None. FINDINGS: VERTEBRAL BODIES: S-shaped scoliosis. Degenerative changes of the spine. Otherwise, Normal height and alignment. No visible fracture or subluxation. DISK SPACES: Narrowing of the disc spaces in the upper thoracic area. SOFT TISSUES: Normal. IMPRESSION: No acute osseous abnormality of the thoracic spine. Reviewed, dictated and finalized at location A.
== END 2023-12-31 07:21 | disposition home or self-care (01) ==
PROVIDERS: PCP Family Medicine; Visit Provider Student in an Organized Health Care Education/Training Program
DX: R07.81 Pleurodynia (principal)
CPT/HCPCS: 72072

== ENCOUNTER 2024-07-02 11:35 | Outpatient (CLI) | payer MEDICARE, SELFPAY ==
--- NOTE | ~2024-07-02 | XR_ITS ---
EXAMINATION: XR chest 2V 07/02/2024 12:04 INDICATION: Pneumonia PROCEDURE: 2 view chest COMPARISON: Comparison to multiple prior studies sequentially, with oldest reviewed study dated 05/2020. FINDINGS: There is bibasilar atelectasis. No focal pneumonia. Calcified granuloma right mid thorax. T he cardiomediastinal silhouette is within normal limits. There are no pleural effusions. There is n o pneumothorax suspected. There is a left shoulder arthroplasty. IMPRESSION: 1: Bibasilar atelectasis. Reviewed, dictated and finalized at location A. IMPRESSION: 1: Bibasilar atelectasis.
== END 2024-07-02 11:36 | disposition home or self-care (01) ==
LOC: MICIMG 11:39
PROVIDERS: PCP Family Medicine; Visit Provider Student in an Organized Health Care Education/Training Program
DX: J18.9 Pneumonia, unspecified organism (principal); R91.8 Other nonspecific abnormal finding of lung field
CPT/HCPCS: 71046

== ENCOUNTER 2024-07-07 09:58 | Observation (INO) | payer MEDICARE, SELFPAY ==
[2024-07-07] VITALS (12 sets, daily range): BP systolic 120–164; BP diastolic 56–71; PULSE 64–84; RESP 14–21; TEMP 36.3–36.5; O2SAT 94–100; BMI 26.9
--- NOTE | ~2024-07-07 | US_ITS ---
EXAMINATION: US carotid duplex BI DATE: 07/08/2024 10:13 INDICATION: Syncope TECHNIQUE: Grayscale, color Doppler, and pulsed Doppler images of the cervical carotid arteries were obtained. The degree of vessel stenosis is placed in one of the following categories: normal, <50%, 5 0-69%, >=70% but less than near-occlusion, near-occlusion, or total occlusion. Note that percent sten osis relative to normal distal artery lumen diameter is indirectly measured from velocity measurement s as described by Deejay, et al. Radiology 2003; 229:[id number]. COMPARISON: None. FINDINGS: RIGHT: The right common carotid artery (CCA) peak systolic velocity (PSV) is 49 cm/s. The right internal car otid artery (ICA) PSV is 55 cm/s. The right ICA end-diastolic velocity (EDV) is 11 cm/s. The right IC A/CCA PSV ratio is 1.1. Grayscale and color Doppler images yield an estimate of <50% diameter reducti on from plaque in the ICA. The external carotid artery (ECA) PSV is 46 cm/s. There is antegrade flow in the right vertebral artery. LEFT: The left CCA PSV is 41 cm/s. The left ICA PSV is 66 cm/s. The left ICA EDV is 7 cm/s. The left ICA/CC A PSV ratio is 1.6. Grayscale and color Doppler images yield an estimate of <50% diameter reduction f rom plaque in the ICA. The ECA PSV is 55 cm/s. There is antegrade flow in the left vertebral artery. IMPRESSION: 1. <50% stenosis in the right internal carotid artery. 2. <50% stenosis in the left internal carotid artery. Reviewed, dictated and finalized at location A.
--- NOTE | ~2024-07-07 | XR_ITS ---
XR ankle LT min 3V Ordering provider: Anshul Wilson MD History: . trauma . Comparison: None. FINDINGS: BONES: No acute fracture or dislocation. JOINT SPACES: The ankle mortise is normal. SOFT TISSUES: Normal. Calcaneal spur. Postoperative changes in the first metacarpal tarsal bone. IMPRESSION: No acute osseous abnormality left ankle. Reviewed, dictated and finalized at location A.
--- NOTE | ~2024-07-07 | XR_ITS ---
XR chest 2V Ordering provider: Anshul Wilson MD History: 79 years Female with . syncope . Comparison: July 02, 2024 FINDINGS: MEDIASTINUM: The cardiac silhouette is moderately enlarged. LUNGS: No infiltrates, effusions or pneumothorax. OTHER: No free air under the diaphragm. Left shoulder arthroplasty. Degenerative changes of the spine. IMPRESSION: No acute cardiopulmonary pathology. Reviewed, dictated and finalized at location A.
--- NOTE | ~2024-07-07 | CT_ITS ---
CT brain wo con Ordering provider: Anshul Wilson MD History: 79 years Female with . syncope . Comparison: None. Technique: CT of the head without contrast. Radiation reduction technique utilized.The dose-length pr oduct was 605.33 mGy-cm. FINDINGS: BRAIN PARENCHYMA AND CSF SPACES: No midline shift, mass effect or hemorrhage. The brain parenchyma a nd CSF spaces are otherwise normal. VISUALIZED PARANASAL SINUSES: Bilateral maxillary sinus disease. Bilateral ethmoid and sphenoid sinus disease. Otherwise, Well aerated. MASTOIDS: Well aerated. BONES: The bones appear intact. SOFT TISSUES: Visualized nasopharynx is normal. Superficial soft tissues are normal. IMPRESSION: No acute intracranial findings. Reviewed, dictated and finalized at location A.
--- OUTSIDE RECORDS SUMMARY | 2024-07-07 11:18 | XMS_ITS | Encounter Summary ---
Author Organization [facility] Address [address] [place] [address] Phone Care Team Providers Care Windows Technical Specialist Name Role Phone Stef Luciano MD Primary Care Provider Josef Gore MD Unavailable [phone] Adrián Barrios MD Unavailable [phone] Carol Dunbar MD Unavailable [phone] Flory Martino NP Unavailable + [phone] Carol Dunbar MD Unavailable [phone] Encounter Details Date Type Department Care Team (Late st Contact Info) Description 11/01/2017 Telephone [facility] Cardiology [address] 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 Gender Identity Not on file Sexual Orientation Not on file documented as of this encounter Plan of Treatment Not on file documented as of this encounter Visit Diagnoses Not on filedocumented in this encounter Care Teams Windows Technical Specialist Relationship Specialty Start Date End Date Setf Luciano MD [address] [place] [address] PCP - General 06/30/16 Josef Gore MD [address] [place] [address] [id number] Surgeon Surgery 03/09/20 Adrián Barrios MD [address] [place] [address] [id number] Medical Oncologist/Supervisor [place] Hematology and Oncology 03/09/20 01/10/22 Carol Dunbar MD [address] [place] [id number] Radiation Oncologist Radiation Oncology 09/05/20 Flory Woodson NP [address] [place] [address] [phone] Nurse Practitioner Medical Oncology 01/11/22 Carol Dunbar MD [address] [place] [address] [phone] Radiation Oncologist Radiation Oncology 09/10/23 documented as of this encounter
--- OUTSIDE RECORDS SUMMARY | 2024-07-07 11:18 | XMS_ITS | Encounter Summary ---
Author Organization [facility] Address [address] [facility] [place] [address] Care Team Providers Care Sausage Mixer Name Role Phone Unavailable Primary Care Provider Unavailabl e Encounter Details Date Type Department Care Team (Late st Contact Info) Description 11/18/2019 Lab Requisition [facility] D[facility] Lab [address] [facility] [place] [id number] Paula Roe DO [address] [facility] [address] [place] [address] Social History Tobacco Use Types Packs/Day Years Used Date Smoking Tobacco: Never Assessed Sex and Gender Information Value Date Recorded Sex Assigned at Not on file Gender Identity Not on file Sexual Orientation Not on file documented as of this encounter Plan of Treatment Not on file documented as of this encounter Procedures Procedure Name Priority Date/Time Associated Diagnosis Comments DERMATOPATHOLOGY Routine 11/17/2019 12:0 0 AM CDT documented in this encounter Results * DERMATOPATHOLOGY (11/17/2019 12:00 AM CDT) Case Report Dermatopathology Report Case: [id number] Authorizing Provider: Paula Roe DO Collected: 11/17/2019 12:00 AM Ordering Location: [facility] Received: 11/18/2019 01:10 PM Pathologist: Fozia Wood MD Specimens: A) - Skin, left lat LE superior B) - Skin, left lat LE inferior C) - Skin, right lat LE 0 2:07 PM CDT DERMATOPATHOLOGY LABORATORY Final Diagnosis Specimen A. SKIN, left lat LE superior: ACTINIC KERATOSIS, LICHENOID (L57.0) Specimen B. SKIN, left lat LE inferior: ACTINIC KERATOSIS, LICHENOID (L57.0) Specimen C. SKIN, right lat LE: EPIDERMAL NECROSIS SUGGESTIVE OF EXCORIATION (L98.499) 0 2:07 PM [facility] DERMATOPATHOLOGY LABORATORY Clinical History A-B: Pig AK R/O other. C: Healing scar R/O NMSC. 0 2:07 PM [facility] DERMATOPATHOLOGY LABORATORY Gross Description Specimen A: Received is one formalin filled container labeled with the patient's name and designated left lat LE superior. The specimen consists of a shave measuring [id number]. Jar 0. Specimen B: Received is one formalin filled container labeled with the patient's name and designated left lat LE inferior. The specimen consists of a shave measuring [id number]. Jar 0. Specimen C: Received is one formalin filled container labeled with the patient's name and designated right lat LE. The specimen consists of a shave measuring [id number]. Jar 0. 0 2:07 PM T DERMATOPATHOLOGY LABORATORY Microscopic Description Specimen A. SKIN, left lat LE superior: There is focal parakeratosis. The lower half of the epidermis shows disorderly maturation of keratinocytes with nuclear pleomorphism. The dermis shows a band-like, chronic inflammatory infiltrate with occasional apoptotic keratinocytes and some basal vacuolar alteration. Specimen B. SKIN, left lat LE inferior: There is focal parakeratosis. The lower half of the epidermis shows disorderly maturation of keratinocytes with nuclear pleomorphism. The dermis shows a band-like, chronic inflammatory infiltrate with occasional apoptotic keratinocytes and some basal vacuolar alteration. Specimen C. SKIN, right lat LE: The epidermis is focally necrotic and covered with a scale-crust. There is fibrin at the base. 0 2:07 PM T DERMATOPATHOLOGY LABORATORY Disclaimer An external and internal positive and negative controls are appropriate for the histochemical, immunohistochemical and immunofluorescence stain(s) in this case (if any), except where stated explicitly. The performance characteristics of the stain(s) cited in this report were developed and its performance characteristic determined by the Dermatopathology Laboratory at [facility], directed by Dr. Zenon Vuong. These tests need not be, and therefore are not, approved by the [place] Food and Drug Administration. The tests are used for clinical purposes. Billing Codes Specimen Charges Stain Charges 56777 [id number] 1 1 1 0 2:07 PM CDT DERMATOPATHOLOGY LABORATORY Embedded Images 0 2:07 PM CDT DERMATOPATHOLOGY LABORATORY Pathology/Cytology TISSUE SPECIMEN FROM SKIN / Unknown 11/17/2019 11/18/2019 1:10 PM CDT Miscellaneous samples (specimen) TISSUE SPECIMEN FROM SKIN / Unknown 11/17/2019 11/18/2019 1:10 PM CDT Miscellaneous samples (specimen) TISSUE SPECIMEN FROM SKIN / Unknown 11/17/2019 11/18/2019 1:10 PM CDT Paula Roe DO LAB - PATHOLOGY/C YTOLOGY ORDERABLES DERMATOPATHOLOGY LABORATORY [facility] - Department of Dermatology [facility]/[address] [phone] documented in this encounter Visit Diagnoses Not on filedocumented in this encounter
--- OUTSIDE RECORDS SUMMARY | 2024-07-07 11:18 | XMS_ITS ---
Author Organization [facility] Address [address] [place] [address] Care Team Providers Care Flight Attendant/Inflight Supervisor Name Role Phone Stef Luciano MD Primary Care Provider Josef Gore MD Unavailable [phone] Flory Martino TRACTOR MECHANIC HELPER Unavailable [phone] Carol Dunbar MD Unavailable [phone] Active Problems Problem Noted Date Diagnosed Date SI joint arthritis 06/14/2023 Acute recurrent maxillary sinusitis 07/11/2022 Lumbar facet arthropathy 01/25/2022 Overview (06/29/2024): Added automatically from request for surgery [id number] Lymphedema 11/08/2021 Post-nasal drainage 07/05/2021 Hypertrophy of both inferior nasal turbinates Pharyngoesophageal dysphagia 05/24/2021 Sensorineural hearing loss ( SNHL) of left ear with restricted hearing of right ear 12/18/2020 Personal history of radiation therapy 09/06/2020 Dry skin 06/24/2020 Malignant neoplasm of breast 02/05/2020 Tear of left gluteus medius tendon 02/26/2019 Overview (02/26/2019): Added automatically from request for surgery [id number] Paroxysmal atrial fibrillation 12/10/2018 Chest pain 12/10/2018 Increased frequency of urination 11/15/2018 Overview (06/29/2024): Frequency of micturition;Recorded Elsewhere: No Location: [facility] Source: EHR Chronic: N Practice ID: [id number] Billable Time: 10:45:00 AM Disorder of breast 04/30/2018 Overview (06/29/2024): Disorder of breast, unspecified;Recorded Elsewhere: No Location: [facility] Source: EHR Chronic: N Practice ID: [id number] Billable Time: 10:30:00 AM Dysuria 04/03/2018 Overview (06/29/2024): Dysuria;Recorded Elsewhere: No Location: [facility] Source: EHR Chronic: N Practice ID: [id number] Billable Time: 10:45:00 AM Arthralgia of ankle 05/28/2017 Osteopenia 03/09/2017 Osteopenia 03/09/2017 Fracture with nonunion 02/27/2017 Atrial fibrillation 08/01/2016 Left shoulder pain 07/31/2016 History of artificial joint 07/31/2016 Shortness of breath 02/03/2016 Aortic root dilatation 09/02/2015 Fatigue 12/29/2014 Angina pectoris 12/29/2014 Menopause present 09/09/2014 Microscopic hematuria 09/09/2014 Overview (06/29/2024): MICROSCOPIC HEMATURIA;Recorded Elsewhere: No Location: [facility] Source: EHR Chronic: N Practice ID: [id number] Billable Time: 08:45:00 AM Aortic valve regurgitation 01/01/2014 Pain of foot 12/18/2013 Low back pain 09/25/2013 Neck pain 09/25/2013 Laryngopharyngeal reflux (LPR) 09/25/2013 Obstructive sleep apnea syndrome 09/25/2013 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/2013 Gastroesophageal reflux disease with esophagitis 01/02/2013 Hypertension 12/19/2012 Chronic sinusitis 10/31/2012 Osteoarthritis of shoulder 05/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 Benign essential hypertension 01/11/2012 Overview (06/29/2024): Note: uncontrolled Arthralgia of shoulder 12/25/2011 Abdominal pain 10/09/2011 Overview (06/29/2024): Abdominal pain, other specified site;Recorded Elsewhere: No Location: [facility] Source: EHR Chronic: N Practice ID: [id number] Billable Time: 05:00:00 PM Atrophic vulva 10/02/2011 Overview (06/29/2024): Atrophy of vulva;Recorded Elsewhere: No Location: [facility] Source: EHR Chronic: Y Practice ID: [id number] Billable Time: 10:00:00 AM Cough 08/23/2011 Overview (06/29/2024): Note: chronic Dyslipidemia 08/23/2011 Gastro-esophageal reflux disease without esophag itis 08/23/2011 Midline cystocele 07/27/2011 Overview (06/29/2024): Cystocele Without Prolapse;Recorded Elsewhere: No Location: [facility] Source: EHR Chronic: N Practice ID: [id number] Billable Time: 05:45:00 PM Vaginal wall prolapse 06/20/2011 Overview (06/29/2024): Other specified genital prolapse;Practice ID: [id number] Uterine prolapse without mention of vaginal wall prolapse;Practice ID: [id number] Urinary tract infectious disease 05/29/2011 Overview (06/29/2024): Urinary tract infection, site not specified;Practice ID: [id number] Aortic valve disorder 08/15/2010 Aortic aneurysm 08/15/2010 Encounter for preventive health examination 01/01 Current Treatment and Therapy Plans No current plan information found. Past Treatment and Therapy Plans Oncology Supportive Care Plan Name Start Date Discontinue Date Treatment Medications Discontinue Reason Plan Provider Zoledronic Acid (Reclast) Infusion 01/11/2024 01/23/2024 No medications scheduled. Patient Preference Flory Martino NP Radiation Treatments * Course C1 R BREAST 2020 03/09/2020 - 03/30/2020 Treatment Period Energy Fraction Dose Fractions Total Dose Plans Planned R BREAST 03/09/2020 - 03/30/2020 267 15 / 4,005 Reference Points Delivered WILKINS DPV 03/09/2020 - 03/30/2020 4,005
--- OUTSIDE RECORDS SUMMARY | 2024-07-07 11:18 | XMS_ITS | Clinical Summary ---
Author Organization [facility] Address [address] [place] [address] Care Team Providers Care Director Of Philanthropy Name Role Phone Unavailable Primary Care Provider Unavailabl e Source Comments [facility],non-owned Affiliates and Associated Physician Practices is amultiple site organization consisting of ambulatory clinics and hospital sitesin [place], [place], [place] and [place]. This disclosure is being madepursuant to the Care Everywhere program and may not contain all information available regarding this patient. Last updated 17.[facility] Social History Tobacco Use Types Packs/Day Years Used Date Smoking Tobacco: Never Assessed Sex and Gender Information Value Date Recorded Sex Assigned at Not on file Gender Identity Not on file Sexual Orientation Not on file Plan of Treatment Health Maintenance Due Date Last Done Comments BONE DENSITY TESTING 1945 MEDICARE AWV 12 MONTHS 1945 HEPATITIS C SCREENING 03/09/1964 DTAP/TDAP/TD VACCINES (1 - Tdap) 1965 PNEUMOCOCCAL VACCINE 50+ (1 of 1 - PCV) 1996 ZOSTER VACCINE (1 of 2) 1996 Respiratory Syncytial Virus (RSV) Vaccine Pt: or over 60 yrs (1 - 1-dose 75+ series) 2021 COVID-19 VACCINE (1 - 2023-2 5 season) 2023 INFLUENZA VACCINE (#1) 2023 DEPRESSION SCREENING 04/02/2024 HEPATITIS B VACCINE Aged Out No longe r eligible based on patient's age to complete this topic HIB VACCINE Aged Out No longer eligi ble based on patient's age to complete this topic HPV VACCINE Aged Out No longer eligi ble based on patient's age to complete this topic MENINGOCOCCAL (Group B) VACC INE SHARED DECISION-MAKING Aged Out No longer eligibl e based on patient's age to complete this topic MENINGOCOCCAL GROUPS A/C/Y/W VACCINE Aged Out No longer eligible b ased on patient's age to complete this topic
--- OUTSIDE RECORDS SUMMARY | 2024-07-07 11:18 | XMS_ITS | Clinical Summary ---
Author Organization [facility] Address [address] [place] [address] Care Team Providers Care Modern Dancer Name Role Phone Stef Luciano MD Primary Care Provider Josef Gore MD Unavailable [phone] Flory Martino PHYSICAL THERAPY ASSISTANT INSTRUCTOR Unavailable [phone] Carol Dunbar MD Unavailable [phone] Allergies Active Allergy Reactions Criticality Noted Date Comments Adhesive Rash Medium 03/29/2023 Itching, blister Amlodipine Swelling Medium 09/06/2022 legs Clopidogrel Stomach upset Low 02/25/2024 Esomeprazole Itching Low (Nexium) Chlorhexidine Rash Medium 03/11/2020 Lisinopril Cough Low Losartan Itching Low 11/22/2017 Morphine Other (See comments) Low 04/28/2019 Doesn't work to alleviate pain Niacin Itching Medium 10/12/2020 Omeprazole Itching Low 04/10/2019 Other Unknown 10/20/2022 Perflutren Lipid Microspheres Other (See comments) Medium 10/07/2021 Back Pain Pkixhep-Ruo-Zzh Reductase Inhibitors Muscle pain Medium Hydrocodone-Acetaminophe n Other (See comments) Low 04/28/2019 Lost hearing Zoledronic Acid Dizziness,Headache Low 03/10/2024 Aches, weak Medications multivitamin capsuleIndicat ions:Vitamin Deficiency Prevention Take 0.5 capsules by mouth 2 (two) times a day Active fluticasone propionate (FLONASE) 50 mcg/actuation nasal sprayIndicatio ns:Allergic Rhinitis Administer 1 spray into each nostril every morning Active apixaban (Eliquis) 5 mg tablet Take 1 tablet (5 mg total) by mouth 2 (two) times a day 56 tablet 1 Active Additional Information Patient not taking.Reported on 07/07/2024 spironolactone -hydroCHLOROth iazide (ALDACTAZIDE) 25-25 mg per tablet Take 1 tablet by mouth daily 2 Active tamoxifen (NOLVADEX) 10 mg tabletIndicati ons:Hormone Receptor Positive Breast Cancer Take 1 tablet (10 mg total) by mouth daily 90 tablet 2 4 Active Additional Information Patient not taking.Reported on 07/07/2024 vit C,U-Ck-ywpwu-l utein-zeaxan 250-90-40-1 mg capsule Take by mouth Active calcium carbonate-katherine min D3 1,500 mg (600 mg elemental)-500 unit capsule Take by mouth Act leila aspirin 81 mg enteric coated tablet Take 1 tablet (81 mg total) by mouth daily 5 Active azithromycin (ZITHROMAX) 250 mg tablet Take 2 tabs (500 mg) by mouth today, than 1 tab (250 mg) daily for 4 days. 6 tablet 5 Active Additional Information Patient not taking.Reported on 07/07/2024 albuterol HFA (PROVENTIL HFA,VENTOLIN HFA,PROAIR HFA) 90 mcg/actuation inhaler Inhale 2 puffs every 6 (six) hours as needed for wheezing or shortness of breath 1 each 5 025 Active benzonatate (TESSALON) 100 mg capsule TAKE 2 CAPSULES BY MOUTH THREE TIMES DAILY NEEDED FOR COUGH 5 Active guaiFENesin-co deine (GUAITUSS AC) liquid 100-10 mg/5 mL TAKE 5 ML BY MOUTH EVERY 6 HOURS 5 Active doxycycline hyclate 100 mg capsule TAKE 1 CAPSULE BY MOUTH TWICE DAILY FOR 10 DAYS [address] (PROTONIX) 40 mg EC tablet Take 1 tablet (40 mg total) by mouth daily 2 025 Discontinu ed(Patient Reported) predniSONE (DELTASONE) 20 mg tablet Take 1 tablet (20 mg) by mouth daily for 5 days 5 tablet 5 025 amoxicillin-cl avulanate (AUGMENTIN) 875-125 mg per tablet Take 1 tablet by mouth 2 (two) times a day for 7 days 14 tablet 5 025 Additional Information Patient not taking.Reported on 07/07/2024 Active Problems Problem Noted Date Diagnosed Date SI joint arthritis 06/14/2023 Acute recurrent maxillary sinusitis 07/11/2022 Lumbar facet arthropathy 01/25/2022 Overview (06/29/2024): Added automatically from request for surgery [id number] Lymphedema 11/08/2021 Post-nasal drainage 07/05/2021 Hypertrophy of both inferior nasal turbinates Pharyngoesophageal dysphagia 05/24/2021 Sensorineural hearing loss ( SNHL) of left ear with restricted hearing of right ear 12/18/2020 Personal history of radiation therapy 09/06/2020 Dry skin 06/24/2020 Malignant neoplasm of breast 02/05/2020 Tear of left gluteus medius tendon 02/26/2019 Overview (02/26/2019): Added automatically from request for surgery [id number] Paroxysmal atrial fibrillation 12/10/2018 Chest pain 12/10/2018 Increased frequency of urination 11/15/2018 Overview (06/29/2024): Frequency of micturition;Recorded Elsewhere: No Location: [facility] Source: EHR Chronic: N Practice ID: [id number] Billable Time: 10:45:00 AM Disorder of breast 04/30/2018 Overview (06/29/2024): Disorder of breast, unspecified;Recorded Elsewhere: No Location: [facility] Source: EHR Chronic: N Practice ID: [id number] Billable Time: 10:30:00 AM Dysuria 04/03/2018 Overview (06/29/2024): Dysuria;Recorded Elsewhere: No Location: [facility] Source: EHR Chronic: N Practice ID: [id number] Billable Time: 10:45:00 AM Arthralgia of ankle 05/28/2017 Osteopenia 03/09/2017 Osteopenia 03/09/2017 Fracture with nonunion 02/27/2017 Atrial fibrillation 08/01/2016 Left shoulder pain 07/31/2016 History of artificial joint 07/31/2016 Shortness of breath 02/03/2016 Aortic root dilatation 09/02/2015 Fatigue 12/29/2014 Angina pectoris 12/29/2014 Menopause present 09/09/2014 Microscopic hematuria 09/09/2014 Overview (06/29/2024): MICROSCOPIC HEMATURIA;Recorded Elsewhere: No Location: [facility] Source: EHR Chronic: N Practice ID: [id number] [...] pain, other specified site;Recorded Elsewhere: No Location: [facility] Source: EHR Chronic: N Practice ID: [id number] Billable Time: 05:00:00 PM Atrophic vulva 10/02/2011 Overview (06/29/2024): Atrophy of vulva;Recorded Elsewhere: No Location: [facility] Source: EHR Chronic: Y Practice ID: [id number] Billable Time: 10:00:00 AM Cough 08/23/2011 Overview (06/29/2024): Note: chronic Dyslipidemia 08/23/2011 Gastro-esophageal reflux disease without esophag itis 08/23/2011 Midline cystocele 07/27/2011 Overview (06/29/2024): Cystocele Without Prolapse;Recorded Elsewhere: No Location: [facility] Source: EHR Chronic: N Practice ID: [id number] Billable Time: 05:45:00 PM Vaginal wall prolapse 06/20/2011 Overview (06/29/2024): Other specified genital prolapse;Practice ID: [id number] Uterine prolapse without mention of vaginal wall prolapse;Practice ID: [id number] Urinary tract infectious disease 05/29/2011 Overview (06/29/2024): Urinary tract infection, site not specified;Practice ID: [id number] Aortic valve disorder 08/15/2010 Aortic aneurysm 08/15/2010 Encounter for preventive health examination 01/01 Encounters Date Type Department Care Team Description 07/07/2024 9:15 AM CDT Office Visit [facility] at [address] [address] Mimi De La Paz NP Syncope, unspecified syncope type (Primary Dx); Dizziness; Acute left ankle pain 06/29/2024 10:15 AM CDT Office Visit [facility] at [address] [address] Tami Clifton PA Lower respiratory infection (Primary Dx) 06/25/2024 10:45 AM CDT Office Visit [facility] at [address] [place] [address] Jesenia Suarez PA Asymptomatic varicose veins (Primary Dx); Atrial fibrillation, unspecified type (HCC); Essential hypertension 04/08/2024 Telephone [facility] [address] [place] [address] [address] [place] [address] Melinda Villela RN from Last 3 Months Immunizations Immunization Administration Dates Next Due Influenza, Quad, Adjuvantate d, Intramuscular 12/26/2019 Influenza, Quadrivalent, Hig h Dose, Preservative Free, Intrr 12/20/2020 Influenza, Trivalent, IM (MDV) 02/05/2016 Influenza, Unspecified 12/21/2020 Pfizer SARS-CoV-2 Monovalent Vaccination (12+ Yrs) PURPLE 01/04/2021,06/24/2020,05/25/2020 Pneumococcal Polysaccharide PPV23 12/28/2018 Pneumococcal, Unspecified 02/05/2016 ZOSTER Recombinant 04/04/2019,01/23/2019 Surgical History Surgery Date Site/Laterality Comments SHOULDER ARTHROSCOPY 04/02/1998 - 04/01/1999 Left Arthroscopy shoulder SHOULDER ARTHROPLASTY 04/02/2009 - 04/01/2010 Left Shoulder replacement BUNIONECTOMY 1994& 2012 Bilateral left--1994 right--2012, metal implants SEPTOPLASTY CATARACT EXTRACTION EXTRACAPSULAR W/ INTRAOCULAR LENS IMPLANTATION 04/02/2015 - 04/01/2016 Bilateral BLADDER SUSPENSION 04/02/2010 - 04/01/2011 HIP SURGERY TONSILLECTOMY COLONOSCOPY BREAST LUMPECTOMY Right Medical History Medical History Date Comments Hypertension Hypertension Sleep apnea Uses C-PAP night ly Hyperlipidemia well controlled with meds TMJ (dislocation of temporom andibular joint) no problems opening mouth, j ust can't open very far Atrial fibrillation (HCC) well c ontrolled with meds Seasonal allergies well controll ed with meds Arthritis Macular degeneration recently di agnosed with beginning stages Enlarged aorta just monitoring at this time Anesthesia very slow to wak e up and acts crazy, confusion -has had to stay overnight unexpectantly x2 when was supposed to be outpatient Deaf, left 2004 Sinus drainage denies sore thro at, fever, runny nose or cough Insomnia Constipation Breast cancer (HCC) Right History of radiation therapy GERD (gastroesophageal reflux disease) Family History Medical History Relation Name Comments Cancer Brother Heart disease Brother Heart disease Father Family history of cardiac disorder - (Added by TW Conv) Heart disease Maternal Grandfather Heart disease Maternal Grandmother Heart disease Mother Family history of cardiac disorder - (Added by TW Conv) Cancer Other 1 Family history of Cancer; Heart disease Other 2 Family history of Heart disease; Osteoarthritis Other 3 Family histor y of Osteoarthritis; Osteoporosis Other 4 Family history of Osteoporosis; Heart disease Other 5 Family history of cardiac disorder - (Added by TW Conv) Liver cancer Sister Relation Name Status Comments Brother Alive Father Maternal Grandfather Maternal Grandmother Mother Other 1 Other 2 Other 3 Other 4 Other 5 Sister Social History Tobacco Use Types Packs/Day Years Used Date Smoking Tobacco: Never Smokeless Tobacco: Never Alcohol Use Standard Drinks/Week Comments Not Currently 0 (1 standard drink = 0.6 oz pur e alcohol) 1x/month AUDIT-C Answer Date Recorded Frequency of Alcohol Consumption Not on file 01/11/2024 Q2: How many drinks containi ng alcohol do you have on a typical day when you are drinking? Patient does not drink Frequency of Binge Drinking Not on file 12/31 Comments No Sex and Gender Information Value Date Recorded Sex Assigned at Not on file Legal Sex Female 2:24 AM ACCOUNTS COLLECTOR Gender Identity Not on file Sexual Orientation Not on file Occupation Industry Job Start Date Job End Date Retired Not on file Not on file Not on file Obstetrics History Para Term AB IAB SAB Ectopic Multiple Livin g Live Births 2 2 2 Date Outcome GA Total Labor Labor/2nd/3rd Weight Sex Type Anes PTL Tamia A1 A5 Name Clin Term Term Last Filed Vital Signs Vital Sign Reading Time Taken Comments Blood Pressure 130/80 07/07/2024 9:06 AM CDT Pulse 87 07/07/2024 9:06 AM CDT Temperature 36.4 C (97.5 F) 07/07/2024 9:06 AM CDT Respiratory Rate 20 07/07/2024 9:06 AM CDT Oxygen Saturation 98% 07/07/2024 9:06 AM CDT Inhaled Oxygen Concentration - - Weight 79.4 kg (175 lb) 07/07/2024 9:06 AM CDT Height 165.1 cm (5' 5 ) 07/07/2024 9:06 AM CDT Body Mass Index 29.12 07/07/2024 9:06 AM CDT Plan of Treatment Health Maintenance Due Date Last Done Comments Depression Screening 1945 Fall Risk Assessment 1945 Hepatitis C Screening 1945 DTaP/Tdap/Td Vaccine (1 - Tdap) 1957 Hepatitis B Screening 1964 Well Visit 65+ 2011 Pneumococcal vaccine 65+ (2 of 2 - PCV) 12/29/2019 12/28/2018, 02/05/2016 Covid-19 Vaccine (4 - 2023-2 5 season) 2023 01/04/2021, 06/24/2020, 05/25/2020 Influenza Vaccine (Season Ended) 2024 12/25/2022, 01/04/2022, 12/21/2020, Additional history exists Osteoporosis Screening-Bone Density Scan 11/18/2025 11/19/2023, 11/19/2023, 03/06/2017 Zoster Vaccine Completed 04/04/2019, 01/23/2019 Breast Cancer Screening-Mammogram Discontinued 03/03/2024, 02/26/2023, 02/22/2022, Additional history exists Medical Devices Implanted Type Area Safety Pin Assembling Machine Operator Device Identifier Shelf Expiration Date Model / Serial / Lot [employer] [id number] Swivelock C Fibertak Tigertail 4.75mm 22mm 2 Load 2 [place] Suture - S00 - [id number] Implanted:Qty: 1 on 05/01/2019 by Radha Evans MD at [facility] [place] Left: Buttocks [employer] 03/01/2021 AR-2324BCT -2 / 00 / [id number] [employer] [id number] Swivelock C Fibertak Tigertail 4.75mm 22mm 2 Load 2 [place] Suture - S00 - [id number] Implanted:Qty: 1 on 05/01/2019 by Radha Evans MD at [facility] Left: Buttocks [employer] 03/01/2021 AR-2324BCT -2 / / [id number] [employer] [id number] Swivelock C 4.75mm 19.1mm Closed Eyelet Vent [place] Suture - S00 - [id number] Implanted:Qty: 1 on 05/01/2019 by Radha Evans MD at [facility] Left: Buttocks [employer] 12/30/2020 AR-2324BCC / 00 / [id number] [employer] Ar-2324bcc Swivelock C 4.75mm 19.1mm Closed Eyelet Vent [place] Suture - S00 - [id number] Implanted:Qty: 1 on 05/01/2019 by Radha Evans MD at [facility] Left: Buttocks [employer] 01/30/2021 AR-2324BCC / 00 / [id number] Procedures Procedure Name Priority Date/Time Associated Diagnosis Comments SCREENING MAMMOGRAM BILATERAL W KAUSHIK Schedule Routine, Read Routine (OP Routine) 03/03/2024 10:08 AM ACCOUNTS COLLECTOR Screening mammogram, encounter for DEXA AXIAL SKELETON BONE DENSITY 1 OR MORE SITES Schedule Routine, Read Routine (OP Routine) 11/19/2023 3:11 PM CDT Malignant neoplasm of overlapping sites of right breast in female, estrogen receptor positive (HCC) Encounter for osteoporosis screening in asymptomatic postmenopausal patient from Last 3 Months or Most Recently Relevant to Health Maintenance Results * Screening Mammogram Bilateral W Kaushik (03/03/2024 10:08 AM ACCOUNTS COLLECTOR) Anatomical Region Laterality Modality Breast Bilateral Mammography Impressions 03/03/2024 11:58 AM ACCOUNTS COLLECTOR BI-RADS ATLAS category (overall): 2 - Benign There is no mammographic evidence of malignancy. A 1 year screening mammogram is recommended. The patient has been or will be contacted. We recommend annual screening mammography for women at average risk of breast cancer beginning at age 40, based on guidelines of the [place] [employer] (ACR Practice Parameter for the Performance of Screening and Diagnostic Mammography) and [place] [employer]. For women with and elevated risk of breast cancer, please refer to the ACR Practice Parameter for specific screening recommendations. The patient will be entered into a reminder system with a target due date of 1 year for her next screening exam. Narrative 03/03/2024 11:58 AM ACCOUNTS COLLECTOR Screening Mammogram Bilateral W Kaushik: 03/03/24 The study was acquired using full field digital technology and interpreted from soft copy. 2D digital mammographic views, as well as 3D digital tomosynthesis were performed in the CC and MLO projections. This study was resulted using Computer-Aided Detection (CAD). CLINICAL: Screening mammogram, encounter for. Medical history includes breast cancer and radiation therapy. No known family history of breast cancer. COMPARISONS: 11/19/2023 Diagnostic Mammogram Right W Kaushik 11/19/2023 US Breast Right Limited 02/26/2023 Diagnostic Mammogram Bilateral W Kaushik 02/26/2023 US Breast Right Limited 02/22/2022 Diagnostic Mammogram Bilateral W Kaushik 02/22/2022 US Breast Right Limited 08/22/2021 Diagnostic Mammogram Right W Kaushik 08/22/2021 US Breast Right Limited 04/29/2021 Diagnostic Mammogram Right W Kaushik 04/29/2021 US Breast Right Limited 12/30/2020 Diagnostic Mammogram Bilateral W Kaushik 02/19/2020 Radiologic Examination of Surgical Specimen 01/23/2020 US Breast Right Limited 12/29/2019 Breast Imaging Diagnostic Outside Reference 12/29/2019 Breast Imaging US Outside Reference 12/15/2019 Breast Imaging Screening Outside Reference BREAST TISSUE: There are scattered areas of fibroglandular density. FINDINGS: There are stable postsurgical changes in the right breast. No suspicious masses, suspicious calcifications, or other suspicious findings are seen within either breast. There has been no suspicious change. 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 REFERENCE: Bone mineral density: T-Score: Normal (T-score above or = -1.0) Low bone mass (T-score between -1.0 and -2.5) replaces the previously used term osteopenia Osteoporosis (T-score = or below -2.5) Z-Score: Within the expected range for age (Z-score above -2.0) Below the expected range for age (Z-score is -2.0 or below) Please see below follow up recommendations. Medical evaluation for secondary causes of low bone mineral density may be appropriate. FRAX is a World Health Organization validated fracture risk assessment tool that calculates a person's 10 year probability of a major osteoporosis related fracture and hip fracture. According to the National Osteoporosis Foundation guidelines, postmenopausal women and men age 50 or older with low bone mass and a 10 year probability of a major osteoporosis related fracture = or greater than 20% or a 10 year probability of a hip fracture = or greater than 3% should be considered for pharmacological treatment for the prevention of osteoporosis. For further information, including treatment recommendations, please refer to the 2019 ISCD Official Positions (http://www.iscd.org) and the NOF's Clinician's Guide to Prevention and Treatment of Osteoporosis (http://www.nof.org/professionals/clinical-guidelines) THIS IS AN ELECTRONICALLY VERIFIED FINAL REPORT 11/19/2023 8:49 PM - Electronically signed by Real Purvis M.D. 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 REFERENCE: Bone mineral density: T-Score: Normal (T-score above or = -1.0) Low bone mass (T-score between -1.0 and -2.5) replaces thepreviously used term osteopenia Osteoporosis (T-score = or below -2.5) Z-Score: Within the expected range for age (Z-score above -2.0) Below the expected range for age (Z-score is -2.0 or below) Please see below follow up recommendations. Medical evaluation forsecondary causes of low bone mineral density may be appropriate. FRAX is a World Health Organization validated fracture risk assessmenttool that calculates a person's 10 year probability of a major osteoporosisrelated fracture and hip fracture. According to the National OsteoporosisFoundation guidelines, postmenopausal women and men age 50 or older with low bonemass and a 10 year probability of a major osteoporosis related fracture = or greater than 20% or a 10 year probability of a hip fracture = or greaterthan 3% should be considered for pharmacological treatment for the preventionof osteoporosis. For further information, including treatment recommendations, please referto the 2019 ISCD Official Positions (http://www.iscd.org) and the NOF's Clinician's Guide to Prevention and Treatment of Osteoporosis (http://www.nof.org/professionals/clinical-guidelines) THIS IS AN ELECTRONICALLY VERIFIED FINAL REPORT 11/19/2023 8:49 PM - Electronically signed by Real Purvis M.D. MF: [facility] Report ID: [id number] Reading Location: [place] [address] Flory Martino NP IMG DXA PROCEDURES F inal Result from Last 3 Months or Most Recently Relevant to Health Maintenance Insurance MEDICARE MEDICARE [employer] MEDICARE SUPPLEMENT MEDICARE [facility] MEDICARE SUPPLEMENT MEDICARE Care Teams Modern Dancer Relationship Specialty Start Date End Date Stef Luciano MD [address] [place] [address] PCP - General 06/30/16 Josef Gore MD [address] [facility] [address] [place] [address] Surgeon Surgery 03/09/20 Flory Martino NP [address] [facility] [address] [place], [place] [id number] Nurse Practitioner Medical Oncology 01/11/22 Carol Dunbar MD [address] [place] [id number] Radiation Oncologist Radiation Oncology 09/10/23
--- OUTSIDE RECORDS SUMMARY | 2024-07-07 11:18 | XMS_ITS | Clinical Summary ---
Author Organization [facility] Address [address] [place] [address] Care Team Providers Care [employer] Name Role Phone Stef Luciano MD Primary Care Provider [phone] Yenni Norman MD Unavailable [phone] Adrián Barrios MD Unavailable [phone] Allergies Active Allergy Reactions Criticality Noted Date Comments 5-Alpha Reductase Inhibitors Unknown 10/20/2022 Tape Rash Low 03/29/2023 Itching, blister Amlodipine Swelling Medium 09/06/2022 legs Chlorhexidine Rash Medium 03/11/2020 Esomeprazole Itching Low 06/04/2020 (Nexium) Hydrocodone-Acetaminophe n Other (see comment) Low 04/28/2019 Lost hearing Lisinopril Cough Low 06/04/2020 Losartan Itching Low 11/22/2017 Morphine Other (see comment) Low 04/28/2019 Doesn't work to alleviate pain Niacin Itching Medium 10/12/2020 Omeprazole Itching Low 04/10/2019 Perflutren Lipid Microspheres Other (see comment) Medium 10/07/2021 Back Pain Clopidogrel GI Upset 02/25/2024 Zoledronic Acid Dizziness,Headache 03/10/2024 Aches, weak Statins Myalgias Medium 06/04/2020 Medications Calcium Carbonate-Vitam in D (CALTRATE 600+D OR) Take 600 mg by mouth daily. Active Multiple Vitamins-Minera ls (PRESERVISION AREDS 2+MULTI VIT) Cap Take 1 capsule by mouth daily. Active Multiple Vitamin (MULTIVITAMIN) capsule Take 1 capsule by mouth daily. Active azelastine 0.1 % nasal spray 2 sprays by Nasal route 2 (two) times daily. Use in each nostril as directed Active spironolactone- hydroCHLOROthia zide (ALDACTAZIDE) 25-25 MG tablet Take 0.5 tablets by mouth daily. 4 Active aspirin EC (ECOTRIN) 81 MG tablet Take 1 tablet (81 mg total) by mouth daily. 90 tablet 1 5 Active aspirin 81 MG chewable tablet Chew 1 tablet (81 mg total) by mouth daily. 100 tablet 1 4 06/28/19 Discontinue d(Alternate therapy) apixaban (ELIQUIS) 2.5 MG tablet Take 1 tablet (2.5 mg total) by mouth 2 (two) times daily. 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) 06/13/2021 Malignant neoplasm of breast ([facility]) 0 12/21/2020 Dry skin 06/24/2020 Malignant neoplasm of overla pping sites of right breast in female, estrogen receptor positive ([facility]) 02/05/2020 Tear of left gluteus medius tendon 02/26/2019 Overview (09/07/2020): Added automatically from request for surgery [id number] Arthralgia of ankle 05/28/2017 Osteopenia 03/09/2017 Fracture with nonunion 02/27/2017 History of artificial joint 07/31/2016 Paroxysmal atrial fibrillation ([facility]) 04/02/2016 Assessment & Plan (01/14/2021 3:28 PM CDT): This is a 75-year-old female with a history of paroxysmal symptomatic atrial fibrillation who presents today for evaluation of her arrhythmia. I had a long discussion with the patient today regarding the treatment options for her AF. This included but was not limited to continuing her current medication regimen, starting or switching antiarrhythmic medications, or pursuit of radiofrequency ablation. She wishes to continue current therapies. Should she have recurrent arrhythmias or worsening symptoms, we will consider sotalol bid vs catheter ablation. 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 Gastroesophageal reflux disease with esophagitis 01/02/2013 Chronic sinusitis 10/31/2012 Osteoarthritis of shoulder 05/06/2012 Benign essential hypertension 01/11/2012 Overview (09/07/2020): Note: uncontrolled Pain of foot 12/25/2011 Cough 08/23/2011 Overview (09/07/2020): Note: chronic Gastro-esophageal reflux disease without esophag itis 08/23/2011 Dyslipidemia 08/23/2011 Aortic aneurysm 08/15/2010 Aortic valve disorder 08/15/2010 Resolved Problems Problem Noted Date Diagnosed Date Resolved Date Encounter for preventive health examination 01/19/2009 09/13/2020 Encounters Date Type Department Care Team Description 06/27/2024 11:00 AM CDT Office Visit [facility] on [address] [address] Sara Go PA-C Follow Up (6 months); Atrial Fibrillation (Paroxysmal Atrial fibrillation) 06/27/2024 Travel from Last 3 Months Immunizations Name Administration Dates Next Due Fluad influenza vaccine, Rainer drivalent (aIIV4), Inactivated, adjuvanted, preservative free, 0.5 mL,IM use 12/26/2019 Fluzone High Dose - >Age 65 (Prefilled Syringe) 12/20/2020 Influenza (Generic) 12/21/2020,02/05/2016,2011 PFIZER COVID-19 (ORIGINAL FO RMULATION, PURPLE CAP) mRNA, LNP-S, PF, 30 MCG/0.3 ML DOSE 06/24/2020,05/27/2020,05/25/2020 Pneumococcal (Generic) 02/05/2016 Pneumococcal (Pneumovax 23) 12/28/2018 Shingrix 04/04/2019,01/23/2019 Family History Medical History Relation Comments Scoliosis Brother 1 pacemaker Brother 1 Cancer Brother 2 Heart Attack Brother 2 Open Heart Brother 2 pacemaker Brother 2 Open Heart Brother 3 afib Brother 3 pacemaker Brother 3 Drug Abuse Brother 4 Lupus Brother 5 Heart Attack Father Heart Attack Mother Heart Paternal Grandmother bile duct cancer Sister 1 Diabetes Sister 2 Hypertension Sister 2 Osteoarthritis Sister 2 atrial flutter Sister 2 Relation Status Comments Brother 1 (Age 78) Brother 2 Alive Brother 3 Alive Brother 4 (Age 68) Brother 5 Father (Age 56) Maternal Grandfather Maternal Grandmother Mother (Age 71) Paternal Grandfather Paternal Grandmother Sister 1 (Age 62) Sister 2 Alive Social History Tobacco Use Types Packs/Day Years Used Date Smoking Tobacco: Never Smokeless Tobacco: Never Alcohol Use Standard Drinks/Week Comments Never 0 (1 standard drink = 0.6 oz pur e alcohol) [facility] Utilities Answer Date Recorded In the past 12 months has [facility] [employer], gas, oil, or water [employer] threatened to shut off services in your home? No 03/22/2023 Humiliation, Afraid, Rape, and Kick questionnair e Answer Date Recorded Within the last year, have y ou been afraid of your partner or ex-partner? No 03/22/2023 Within the last year, have y ou been humiliated or emotionally abused in other ways by your partner or ex-partner? No Within the last year, have y ou been kicked, hit, slapped, or otherwise physically hurt by your partner or ex-partner? No 03/22/2023 Within the last year, have y ou been raped or forced to have any kind of sexual activity by your partner or ex-partner? No 03/22/2023 Social Connection and Isolat ion Panel [NHANES] Answer Date Recorded In a typical week, how many times do you talk on the phone with family, friends, or neighbors? More than three times a week 03/22/2023 How often do you get togethe r with friends or relatives? More than three times a week 03/22/2023 How often do you attend chur or anglican services? More than 4 times per year 03/22/2023 Do you belong to any clubs o r organizations such as restoration groups, unions, fraternal or athletic groups, or school groups? Yes 03/22/2023 How often do you attend meet ings of the clubs or organizations you belong to? 1 to 4 times per year 03/22/2023 Are you , , di vorced, , never , or living with a partner? 03/22/2023 AUDIT-C Answer Date Recorded Q1: How often do you have a drink containing alcohol? Never 03/22/2023 Q2: How many drinks containi ng alcohol do you have on a typical day when you are drinking? Patient does not drink Q3: How often do you have si x or more drinks on one occasion? Never 03/22/2023 Overall Financial Resource Strain (CARDIA) Answe r Date Recorded How hard is it for you to pa y for the very basics like food, housing, medical care, and heating? Not very hard 03/22/2023 [facility] - Occupational Stress Questionnaire Answer Date Recorded Do you feel stress - tense, restless, nervous, or anxious, or unable to sleep at night because your mind is troubled all the time - these days? Only a little 03/22/2023 Exercise Vital Sign Answer Date Recorde d On average, how many days pe r week do you engage in moderate to strenuous exercise (like a brisk walk)? 3 days 03/22/2023 On average, how many minutes do you engage in exercise at this level? 30 min 03/22/2023 Hunger Vital Sign Answer Date Recorded Within the past 12 months, y ou worried that your food would run out before you got the money to buy more. Never true 03/22/20 23 Within the past 12 months, t he food you bought just didn't last and you didn't have money to get more. Never true 03/22/2023 PRAPARE - Transportation Answer Date Re corded In the past 12 months, has l ack of transportation kept you from medical appointments or from getting medications? No 03/03 In the past 12 months, has l ack of transportation kept you from meetings, work, or from getting things needed for daily living? No 03/22/2023 Housing Stability Vital Sign Answer Leroy e Recorded In the last 12 months, was t here a time when you were not able to pay the mortgage or rent on time? No 03/22/2023 In the last 12 months, how many places have you lived? 1 03/22/2023 In the last 12 months, was t here a time when you did not have a steady place to sleep or slept in a mcc (including now)? No 03/22/2023 Comments No Sex and Gender Information Value Date Recorded Sex Assigned at Not on file Legal Sex Female 10:56 PM CDT Gender Identity Not on file Sexual Orientation Not on file Last Filed Vital Signs Vital Sign Reading Time Taken Comments Blood Pressure 144/72 06/27/2024 10:48 AM CDT Pulse 77 06/27/2024 10:48 AM CDT Temperature 36.4 C (97.6 F) 02/12/2024 9:13 AM WOOD MILLER Respiratory Rate 18 02/12/2024 9:13 AM WOOD MILLER Oxygen Saturation 96% 06/27/2024 10:48 AM CDT Inhaled Oxygen Concentration - - Weight 79.8 kg (176 lb) 06/27/2024 10:48 AM CDT Height 162.6 cm (5' 4 ) 06/27/2024 10:48 AM CDT Body Mass Index 30.21 06/27/2024 10:48 AM CDT Plan of Treatment Upcoming Encounters Date Type Department Care Team (Late st Contact Info) Description 07/31/2024 2:15 PM CDT Office Visit [facility], [address] [place] [address] Yenni Norman MD [facility]. [address] [place] [address] Health Maintenance Due Date Last Done Comments Hepatitis C 1963 DTaP, Tdap and Td Vaccines (1 - Tdap) 1964 Annual Medicare Wellness Visit 2011 Pneumococcal Vaccine: 65+ Years (2 of 2 - PCV) 12/29/2019 12/28/2018 RSV Immunization or 60+ Years (1 - 1-dose 75+ series) 2021 COVID-19 Vaccine ( - season) 2023 01/04/2021, 06/24/2020, 05/27/2020, Additional history exists ASCVD LDL 03/22/2024 03/22/2023, 0510/2022, 10/05/2020 PHQ-2 (Physician S[place]) 04/02/2024 Zoster Vaccines Completed 04/04/2019, 01/23/2019 Dexa Scan (General) Completed 11/19/2023, Meningococcal B Vaccine Aged Out No l onger eligible based on patient's age to complete this topic Meningococcal Vaccine Aged Out No yogi kishor eligible based on patient's age to complete this topic RSV Immunizations Under 20 Months Aged Out No longer eligible based on patient's age to complete this topic Goals Goal Patient Goal Type Associated Problems Recent Progress Patient-Stated? Author Consistently take medications as Prescribed General No Kai Jewell RN Patient will return to prior living situation and remain independent in ADLs upon discharge from hospital Lifestyle No Lynette Burton, RN Medical Devices Implanted Type Area Dairy Technologist Device Identifier Shelf Expiration Date Model / Serial / Lot Mary Closure Device- [id number] Implanted:Qty : 1 on 12/25/2023 by Harris Lopez MD Closure Device [id number] [id number] 05/27/2026 / / [id number] Procedures Procedure Name Priority Date/Time Associated Diagnosis Comments LIPID PANEL STAT 03/22/2023 4:19 PM WOOD MILLER from Last 3 Months or Most Recently Relevant to Health Maintenance Results * (ABNORMAL) LIPID PANEL (03/22/2023 4:19 PM WOOD MILLER) CHOLESTEROL 165 <200 MG/DL 03/22/2023 9:42 PM WOOD MILLER [facility] TRIGLYCERIDES 176(H) <150 MG/DL 03/22/2023 9:42 PM WOOD MILLER [facility] HDL 41 >40.0 MG/DL 03/22/2023 9:42 PM [facility] LDL (CALCULATED) 89 <100 MG/DL 03/22/2023 9:42 PM WOOD MILLER [facility] NON HDL CHOLESTEROL 124 <130 MG/DL 03/22/2023 9:42 PM [facility] CHOL/HDL RATIO 4.0 0.0 - 4.5 03/22/2023 9:42 PM [facility] VLDL CALCULATION 35 5 - 55 MG/DL 03/22/2023 9:42 PM [facility] LIPID INTERPRETATION 03/22/2023 9:42 PM [facility] Comment: [facility] CONCENSUS REPORT RECOMMENDATIONS: ADULT CHILD LOW RISK: CHOLESTEROL <200 <170 TRIGLYCERIDE <150 --- HDL >=60 --- LDL <100 <110 BORDERLINE: CHOLESTEROL 200-239 170-199 TRIGLYCERIDE 150-199 --- HDL 40-59 --- LDL 100-159 110-129 HIGH RISK: CHOLESTEROL >=240 >=200 TRIGLYCERIDE >=200 --- HDL <40 --- LDL >=160 >=130 03/22/2023 4:19 PM WOOD MILLER Olivia Cantu MD LABORATORY Final Result [facility] [address] [place] [address], [place] [phone] from Last 3 Months or Most Recently Relevant to Health Maintenance Insurance MEDICARE [facility] Advance Directives Documents on File Type Date Recorded Patient Heel Trimmer Expl anation Legal Documents 11/14/2021 9:11 AM ATTORNE Y FORM 09/29/21 Advance Directives and Living Will 06/16/2016 12:00 AM HCPOA Advance Directives and Living Will 06/01/2015 12:00 AM HCPOA Advance Directives and Living Will 06/09/2014 12:00 AM HCPOA Advance Directives and Living Will 06/05/2013 12:00 AM HCPOA Advance Directives and Living Will 10/28/2012 12:00 AM HCPOA Advance Directives and Living Will 11/23/2011 12:00 AM HCPOA Advance Directives and Living Will 11/16/2011 12:00 AM HCPOA Advance Directives and Living Will 11/07/2011 12:00 AM HCPOA Advance Directives and Living Will 09/28/2011 12:00 AM HCPOA Advance Directives and Living Will 09/13/2011 12:00 AM ADVANCED DIRECTIVES Advance Directives and Living Will 09/13/2011 12:00 AM HCPOA * Full Code (Latest Code Status on File) Date Activated Date Inactivated Comments 12/25/2023 11:30 AM 12/25/2023 5:36 PM * Full Code Date Activated Date Inactivated Comments 03/22/2023 6:05 PM 03/23/2023 7:08 PM * Full Code Date Activated Date Inactivated Comments 06/13/2021 12:13 PM 06/16/2021 12:41 PM Care Teams Electrician Aircraft Relationship Specialty Start Date End Date Stef Luciano MD [address] [facility] [address] [place] [address] PCP - General FAMILY PRACTICE 06/03/20 Yenni Norman MD [id number] [place], [place] [id number] Consulting Physician CARDIOVASCULAR DISEASE 07/19/20 Adrián Barrios MD [facility] [facility], [address] [place] [address] Referring Physician MEDICAL ONCOLOGY 02/05/20
--- OUTSIDE RECORDS SUMMARY | 2024-07-07 11:18 | XMS_ITS | Encounter Summary ---
Author Organization [facility] Address [address] [place] [address] Care Team Providers Care Hoseman Name Role Phone Stef Luciano MD Primary Care Provider [phone] Yenni Norman MD Unavailable [phone] Adrián Barrios MD Unavailable [phone] Reason for Visit * Reason Onset Date Comments Preprocedure Call 12/19/2023 AYLIEN pre-o p call Encounter Details Date Type Department Care Team (Late st Contact Info) Description 12/19/2023 Pre-Procedure Call [facility] Pre-Admission Testing [address] [place], [place] [id number] Harris Lopez MD Three [facility]. [facility] [address] [place], [place] [id number] Preprocedure Call (AYLIEN pre-op call) Anesthesia Record Procedure Summary Procedure Name Responsible Anesthesiologist Anesthesia Start Time Anesthesia Stop Time XA LEFT ATRIAL APPENDAGE CLOSURE Jose Gardner MD 12/25/23 0941 12/25/23 1040 Events Date Time Event Comment 12/25/2023 0749 0749 AN Anesthesia Prepped 0941 An Start Patient ID and consent checked and patient reassessed. 0941 An Start Data 0945 Face Mask Applied 0947 An Induction The patient was reevaluated immediately before moderate or deep sedation use and before anesthesia induction. 0949 Anesthesia Ready 1028 An Emergence 1034 an stop data 1040 Post Anesthetic Care Handoff I completed my handoff to the receiving nurse during which we: 1. Identified the patient 2. Identified the responsible provider 3. Reviewed the pertinent medical history 4. Discussed the surgical course 5. Reviewed intra-op anesthesia management and issues during anesthesia 6. Set expectations for post-procedure period 7. Allowed opportunity for questions and acknowledgement of understanding. 1040 An Stop Meds * Agents No agents on file. * Blood No blood administrations on file. Lines, Drains, and Airways Type Details Placement Removal Peripheral IV Placement Date: 12/02 07/24; Placement Time: 0840; Placed Outside of This Facility?: No; Size: 18 G; Orientation: Left, Proximal; Location: Forearm; Site Prep: Chlorhexidine; Local Anesthetic: None; Insertion attempts: 1; Ultrasound-guided Placement?: No; Patient Tolerance: Tolerated well; Removal Date: 12/25/23; Removal Time: 15312/25/23 0840 by Becky Hernández RN 12/25/23 1535 by Becky Hernández RN Peripheral IV Placement Date: 12/02 07/24; Placement Time: 0840; Placed Outside of This Facility?: No; Size: 18 G; Orientation: Left; Location: Hand; Local Anesthetic: None; Insertion attempts: 1; Ultrasound-guided Placement?: No; Patient Tolerance: Tolerated well; Removal Date: 12/25/23; Removal Time: 15312/25/23 0840 by Becky Hernández RN 12/25/23 1535 by Becky Hernández RN Venous Sheath 12/25/23; 1004; Injectable; 15; Right; Femoral; 1; Tolerated well; Intact 12/25/23 1004 by Julita Smith RN 12/25/23 1026 by Julita Smith RN Venous Sheath 12/25/23; 1005; Injectable; 9; Left; Femoral; 1; Tolerated well; Intact 12/25/23 1005 by Julita Smith RN 12/25/23 1026 by Julita Smith RN documented in this encounter Social History Tobacco Use Types Packs/Day Years Used Date Smoking Tobacco: Never Smokeless Tobacco: Never Alcohol Use Standard Drinks/Week Comments Never 0 (1 standard drink = 0.6 oz pur e alcohol) [facility] Utilities Answer Date Recorded In the past 12 months has [employer], [employer], oil, or water [employer] threatened to shut off services in your [...] 03/22/2023 How often do you attend chur ch or restorationist services? More than 4 times per year 03/22/2023 Do you belong to any clubs o r organizations such as hindu groups, unions, fraternal or athletic groups, or [...] care, and heating? Not very hard 03/22/2023 [facility] [place] of Occupat ional Health - Occupational Stress [...] place to sleep or slept in a fpc (including now)? No 03/22/2023 Comments No Sex and Gender Information Value Date Recorded Sex Assigned at Not on file Legal Sex Female 10:56 PM CDT Gender Identity Not on file Sexual Orientation Not on file documented as of this encounter Functional Status * Are you deaf or do you have serious difficulty hearing Answer Date of Assessment Author Status No 03/22/2023 6:00 PM Yvonne Figueroa RN Active * Are you blind or do you have serious difficulty seeing, even when wearing glasses? Answer Date of Assessment Author Status No 03/22/2023 6:00 PM Yvonne Figueroa RN Active * Do you have serious difficulty walking or climbing stairs? Answer Date of Assessment Author Status No 03/22/2023 6:00 PM Yvonne Figueroa RN Active * Do you have difficulty dressing or bathing? Answer Date of Assessment Author Status No 03/22/2023 6:00 PM Yvonne Figueroa RN Active * Because of a physical, mental, or emotional condition, do you have difficulty doing errands alone such as visiting a doctor's office or shopping? Answer Date of Assessment Author Status No 03/22/2023 6:00 PM Yvonne Figueroa RN Active documented as of this encounter Mental Status * Because of a physical, mental, or emotional condition, do you have serious difficulty concentrating, remembering, or making decisions? Answer Entry Date Author Status No 03/22/2023 6:00 PM Yvonne Figueroa RN Active documented in this encounter Progress Notes * Renee Marlow RN - 12/19/2023 12:38 PM CDT Can you climb 2 flights of stairs without CP or extreme SOB? Would have mild SOB Are you physically able to do the same things today that you could 6 months ago? yes What is your average blood pressure? 120's/70's Any recent heart testing? (EKG, stress test, Echo?) EKG - 08/30/23, Holter monitor - 09/12/23, echo -03/23/23, stress - 03/23/23 Do you see a planer hand? Who is it? Dr Norman Contacted patient regarding pre-op evaluation phone call. Medical history and medications reviewed.Pre-op instructions were discussed. Instructed patient to hold multivitamin and preservision 7 daysprior to surgery. Hold eliquis the night before surgery and the morning of surgery. Hold calcium and spironolactone the morning of surgery. Patient voiced understanding and questions were answered. Emailed instructions to [email or web address]. Had outpatient bloodwork on 12/18/23. documented in this encounter OR Notes * OR PreOp - Radha Carter, AESTHETICS INSTRUCTOR - 12/19/2023 2:39 PM CDT Chart reviewed. Per phone interview, patient states she would have mild SOB with 2 FOS but denies any CP. Denies recent changes in activity tolerance in past 6 months. Patient sees planer hand Dr. Norman and previous cardiac testing copied. ECG 08/30/23 ECTOPIC ATRIAL RHYTHM MODERATE INTRAVENTRICULAR CONDUCTION DELAY Poor R wave progression cosistent with lead placement, COPD, left ventricular hypertrophy or previous WI MINIMAL VOLTAGE CRITERIA FOR LVH, CONSIDER NORMAL VARIANT NONSPECIFIC ST & T-WAVE ABNORMALITY COMPARED TO PREVIOUS TRACING No significant change Rate 67 Holter Monitor 09/07/23 SUMMARY: Sinus rhythm at an average of 54 bpm was noted. Rare PACs with a <1 % burden seen. No atrial fibrillation was seen Rare PVCs with a <1 % burden noted. No symptoms were recorded. CT chest 07/07/22 1. Dilated aortic root up to 5.3 cm. Mid ascending aortic aneurysm 4.8 cm. Grossly stable. 2. Cardiomegaly. Atherosclerosis. 03/23/2023 echo-EF 55-60%, mild LVH. Grade 1 DD. Wall motion appears normal in all segments. Aorticroot is severely dilated 5.0 cm. Ascending aorta is severely dilated 5.0 cm. No aortic stenosis. Moderate aortic regurgitation. Mild mitral regurgitation. Trace pulmonic regurgitation. 03/23/2023 stress test-EKG negative for ischemia. Normal myocardial perfusion SPECT imaging. Inferolateral resting defect due to breast/diaphragmatic attenuation. No ischemia or infarct. Normal wall motion with ejection fraction 61%. 08/30/22 echo- EF 55-60%. Mild-moderate aortic regurgitation. The sinus of Valsalva measures 4.7cm.The sinotubular junction measures 4.6cm.The proximal ascending aorta measures 4.8cm. 10/07/21 Echo-The left ventricular size is mildly enlarged.Estimated left ventricular ejection fraction is 55-60%. Mild concentric left ventricular hypertrophy. Left ventricular diastolic function is indeterminant.Ascending aorta is severely dilated. The proximal ascending aorta measures 5.0 cm.Aortic root is moderately dilated. The aortic root measures 4.8 cm. Moderate aortic regurgitation. 09/29/21 successful PVI and posterior wall box/isolation. 08/17/20 Lexiscan Nuclear Stress test-Clinically positive for shortness of breath. Electrocardiographically negative stress test for ischemia. Normal myocardial perfusion SPECT imaging. Normal wall motion with an ejection fraction of 62%. Stress test with myocardial perfusion imaging shows overall low risk for a cardiac event. 07/12/20 Echo-The left ventricular size is moderately enlarged. End diastolic dimension is 5.69 cm. End systolic dimmension is 3.96 cm. The left ventricular systolic function is lower limits of normal. Estimated left ventricular ejection fraction is 50-55%. Mild concentric left ventricular hypertrophy. Left ventricular diastolic function is abnormal (grade 1 - impaired relaxation). Aortic root is moderately dilated. The sinus of Valsalva measures 4.8cm.Mild to moderate aortic regurgitation. Mildpulmonic and tricuspid regurgitation 11/26/2012 cardiac catheterization 1. Normal systemic arterial blood pressure during the study. 2. Moderately to markedly elevated left ventricular end diastolic pressure following selective coronary angiography. 3. No gradient across the aortic valve. 4. There is a mild narrowing in the mid portionof the distal left anterior descending coronary artery that may be somewhat complex based upon the original SAIDA cranial view. However, the additional views showed the vessel to be narrowed at that point without any significant complexity. 5. Dilated ascending aorta with moderate aortic insufficiency, left ventricular enlargement, left ventricular hypertrophy, and diminished left ventricular systolic function with segmental wall motion abnormalities that are compatible with possible Takotsubo syndrome. 6. The akinesis in the apex of the left ventricle secondary to a Takotsubo syndrome may not be distinguishable from the same abnormality secondary to a narrowing in the left anterior descending coronary artery. documented in this encounter Plan of Treatment Upcoming Encounters Date Type Department Care Team (Late st Contact Info) Description 07/31/2024 2:15 PM CDT Office [facility] [address] [place] [address] Yenni Norman MD Three [facility]. [address] [place], [place] [id number] documented as of this encounter Goals Goal Patient Goal Type Associated Problems Recent Progress Patient-Stated? Author Consistently take medications as Prescribed General No Kai Jewell, RN Patient will return to prior living situation and remain independent in ADLs upon discharge from hospital Lifestyle No Lynette Burton RN documented as of this encounter Visit Diagnoses Not on filedocumented in this encounter Care Teams Hoseman Relationship Specialty Start Date End Date Stef Luciano MD [address] [facility] [address] [place] [address] PCP - General FAMILY PRACTICE 06/03/20 Yenni Norman MD [address] [address] Consulting Physician CARDIOVASCULAR DISEASE 07/19/20 Adrián Barrios MD [address] [place] [address], [address] [place], [place] [phone] Referring Physician MEDICAL ONCOLOGY 02/05/20 documented as of this encounter
--- OUTSIDE RECORDS SUMMARY | 2024-07-07 11:18 | XMS_ITS | Referral Summary ---
Author Organization [facility] Address [address] [place] [address] Care Team Providers Care Epic Cadence Analyst Name Role Phone Stef Luciano MD Primary Care Provider Josef Gore MD Unavailable [phone] Flory Martino POWER MARKETER Unavailable [phone] Carol Dunbar MD Unavailable [phone] Encounters Date Type Department Care Team Description 07/07/2024 9:15 AM CDT Office Visit [facility] at [address] [address] Mimi De La Paz NP Syncope, unspecified syncope type (Primary Dx); Dizziness; Acute left ankle pain 06/29/2024 10:15 AM CDT Office Visit [facility] at [address] [address] Tami Clifton PA Lower respiratory infection (Primary Dx) 06/25/2024 10:45 AM CDT Office Visit [facility] at [address] [place] [address] Jesenia Suarez PA Asymptomatic varicose veins (Primary Dx); Atrial fibrillation, unspecified type (HCC); Essential hypertension 04/08/2024 Telephone [facility] [address] [place] [phone] Melinda Villela, RN from Last 3 Months Allergies Active Allergy Reactions Criticality Noted Date [...] Other (See comments) Medium 10/07/2021 Back Pain Htqcays-Gqa-Vjo Reductase Inhibitors Muscle pain Medium Hydrocodone-Acetaminophe n [...] Information Patient not taking.Reported on 07/07/2024 vit C,N-Xu-ksqtt-l utein-zeaxan 250-90-40-1 mg capsule Take by mouth [...] (06/29/2024): Added automatically from request for surgery [id number] Lymphedema 11/08/2021 Post-nasal drainage 07/05/2021 Hypertrophy of both inferior nasal turbinates Pharyngoesophageal dysphagia 05/24/2021 Sensorineural hearing loss ( SNHL) of left ear with restricted hearing of right ear 12/18/2020 Personal history of radiation therapy 09/06/2020 Dry skin 06/24/2020 Malignant neoplasm of breast 02/05/2020 Tear of left gluteus medius tendon 02/26/2019 Overview (02/26/2019): Added automatically from request for surgery [id number] Paroxysmal atrial fibrillation 12/10/2018 Chest pain 12/10/2018 Increased frequency of urination 11/15/2018 Overview (06/29/2024): Frequency of micturition;Recorded Elsewhere: No Location: [facility] Source: EHR Chronic: N Practice ID: [id number] Billable Time: 10:45:00 AM Disorder of breast 04/30/2018 Overview (06/29/2024): Disorder of breast, unspecified;Recorded Elsewhere: No Location: [facility] Source: EHR Chronic: N Practice ID: [id number] Billable Time: 10:30:00 AM Dysuria 04/03/2018 Overview (06/29/2024): Dysuria;Recorded Elsewhere: No Location: [facility] Source: EHR Chronic: N Practice ID: [id number] Billable Time: 10:45:00 AM Arthralgia of ankle 05/28/2017 Osteopenia 03/09/2017 Osteopenia 03/09/2017 Fracture with nonunion 02/27/2017 Atrial fibrillation 08/01/2016 Left shoulder pain 07/31/2016 History of artificial joint 07/31/2016 Shortness of breath 02/03/2016 Aortic root dilatation 09/02/2015 Fatigue 12/29/2014 Angina pectoris 12/29/2014 Menopause present 09/09/2014 Microscopic hematuria 09/09/2014 Overview (06/29/2024): MICROSCOPIC HEMATURIA;Recorded Elsewhere: No Location: [facility] Source: EHR Chronic: N Practice ID: [id number] [...] pain, other specified site;Recorded Elsewhere: No Location: [facility] Source: EHR Chronic: N Practice ID: [id number] Billable Time: 05:00:00 PM Atrophic vulva 10/02/2011 Overview (06/29/2024): Atrophy of vulva;Recorded Elsewhere: No Location: [facility] Source: EHR Chronic: Y Practice ID: [id number] Billable Time: 10:00:00 AM Cough 08/23/2011 Overview (06/29/2024): Note: chronic Dyslipidemia 08/23/2011 Gastro-esophageal reflux disease without esophag itis 08/23/2011 Midline cystocele 07/27/2011 Overview (06/29/2024): Cystocele Without Prolapse;Recorded Elsewhere: No Location: [facility] Source: EHR Chronic: N Practice ID: [id number] Billable Time: 05:45:00 PM Vaginal wall prolapse 06/20/2011 Overview (06/29/2024): Other specified genital prolapse;Practice ID: [id number] Uterine prolapse without mention of vaginal wall prolapse;Practice ID: [id number] Urinary tract infectious disease 05/29/2011 Overview (06/29/2024): Urinary tract infection, site not specified;Practice ID: 0001 Aortic valve disorder 08/15/2010 Aortic aneurysm 08/15/2010 Encounter for preventive health examination 01/01 Immunizations Immunization Administration Dates Next Due Influenza, Quad, Adjuvantate d, Intramuscular 12/26/2019 Influenza, Quadrivalent, Hig h Dose, Preservative Free, Intrr 12/20/2020 Influenza, Trivalent, IM (MDV) 02/05/2016 Influenza, Unspecified 12/21/2020 Pfizer SARS-CoV-2 Monovalent Vaccination (12+ Yrs) PURPLE 01/04/2021,06/24/2020,05/25/2020 Pneumococcal Polysaccharide PPV23 12/28/2018 Pneumococcal, Unspecified 02/05/2016 ZOSTER Recombinant 04/04/2019,01/23/2019 Social History Tobacco Use Types Packs/Day Years [...] on file 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 Gender Identity Not on file Sexual Orientation Not on file Occupation Industry Job Start Date Job End Date Retired Not on file Not on file Not on file Last Filed Vital Signs [...] 07/07/2024 9:06 AM CDT Plan of Treatment Not on file Medical Devices Implanted Type Area Child Care Device Identifier Shelf Expiration Date Model / Serial / Lot [employer] [id number] Swivelock C Fibertak Tigertail 4.75mm 22mm 2 Load 2 [employer] Suture - S00 - [id number] Implanted:Qty: 1 on 05/01/2019 by Radha Evans MD at [facility] [place] Left: Buttocks [employer] 03/01/2021 AR-2324BCT -2 / / [id number] [employer] [id number] Swivelock C Fibertak Tigertail 4.75mm 22mm 2 Load 2 [employer] Suture - S00 - [id number] Implanted:Qty: 1 on 05/01/2019 by Radha Evans MD at [facility] [place] Left: Buttocks [employer] 03/01/2021 AR-2324BCT -2 / / [id number] [employer] Ar-2324bcc Swivelock C 4.75mm 19.1mm Closed Eyelet Vent [employer] Suture - S00 - [id number] Implanted:Qty: 1 on 05/01/2019 by Radha Evans MD at [facility] [place] Left: Buttocks [employer] 12/30/2020 AR-2324BCC / 00 / [id number] [employer] Ar-2324bcc Swivelock C 4.75mm 19.1mm Closed Eyelet Vent [employer] Suture - S00 - [id number] Implanted:Qty: 1 on 05/01/2019 by Radha Evans MD at [facility] [place] Left: Buttocks [employer] 01/30/2021 AR-2324BCC / 00 / [id number] Procedures Procedure Name Priority Date/Time Associated Diagnosis Comments SCREENING MAMMOGRAM BILATERAL W KAUSHIK Schedule Routine, Read Routine (OP Routine) 03/03/2024 10:08 AM 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 A 1 year screening mammogram is recommended. The patient has been or will be contacted. We recommend annual screening mammography for women at average risk of breast cancer beginning at age 40, based on guidelines of the [employer] (ACR Practice Parameter for the Performance of Screening and Diagnostic Mammography) and [employer]. For women with and elevated risk of breast cancer, please refer to the ACR Practice Parameter for specific screening recommendations. The patient will be entered into a reminder system with a target due date of 1 year for her next screening exam. Narrative 03/03/2024 11:58 AM BOAT RENTAL CLERK Screening Mammogram Bilateral W Kaushik: 03/03/24 The [...] of: osteoporosis screening, osteoporosis screening post menopausal Child Care/Model: [employer] A (S/N [id number]) CLINICAL INFORMATION: Current height: 64.5 inches Maximum [...] Real Purvis M.D. MF: [place] Report ID: [id number] Reading Location: [address] Note Real Purvis MD - 11/19/2023 EXAM DESCRIPTION: DEXA AXIAL SKELETON BONE DENSITY 1 OR MORE SITES REASON FOR STUDY: 78 y/o year old F with given history of:osteoporosis screening, osteoporosis screening post menopausal Child Care/Model: [employer] A (S/N [id number]) CLINICAL INFORMATION: Current height: 64.5 inches Maximum [...] Real Purvis M.D. MF: [place] Report ID: [id number] Reading Location: [place] [address] Flory Martino NP IMG DXA PROCEDURES F inal Result from Last 3 Months or Most Recently Relevant to Health Maintenance Insurance MEDICARE MEDICARE [facility] MEDICARE SUPPLEMENT MEDICARE [facility] MEDICARE [place] [address] Care Teams Epic Cadence Analyst Relationship Specialty Start Date End Date Stef Luciano MD [address] [place] [address] PCP - General 06/30/16 Josef Gore MD [address] [facility] [address] [place], [place] [address] Surgeon Surgery 03/09/20 Flory Martino NP [address] [facility] [address] [facility] 2 [place], [place] [id number] Nurse Practitioner Medical Oncology 01/11/22 Carol Dunbar MD [address] [facility] [address] [place] [address] Radiation Oncologist Radiation Oncology 09/10/23
--- NOTE | 2024-07-07 11:19 | ECG_ITS ---
Test Date: 2024-07-07 11:49:36 Measurements Intervals [place] Rate: 72 P: 30 [place]: 249 QRS: -35 QRSD: 118 T: 66 QT: 399 QTc: 437 Interpretive Statements SINUS RHYTHM WITH FIRST DEGREE AV BLOCK LEFT AXIS DEVIATION INTRAVENTRICULAR CONDUCTION DELAY LEFT VENTRICULAR HYPERTROPHY AND ST-T CHANGE BORDERLINE R WAVE PROGRESSION, ANTERIOR LEADS BASELINE ARTIFACT- I, II, III, AVR, AVL BORDERLINE ECG No previous ECG available for comparison Electronically Signed On 07-07-2024 11:50:37 CDT by Hao Dill D.O.
--- OUTSIDE RECORDS SUMMARY | 2024-07-07 11:19 | XMS_ITS | Encounter Summary ---
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 Fall Patient c/o fall and left foot pain. Difficulty walking and pain and swelling. 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 Subjective/Objective Patient ID: Radha Castellanos is a 79 y.o. female. Chief Complaint Dizziness (Patient here for c/o dizziness yesterday possible due to sinus infection.) and Fall (Patient c/o fall and left foot pain. Difficulty walking and pain and swelling. ) Patient presents to the clinic with reports of dizziness episodes that have occurred over the past 48 hours and a fall/syncopal yesterday that has caused left ankle pain yesterday. Patient reports that she went to stand up and believes that she lost consciousness for few seconds and fell to the ground. Patient reports that her vision went completely black and the details of the fall are not all there to the patient. Patient was with a friend and the friend said that they heard her ankle pop. Patient reports limping, swelling, and bruising to left ankle. Patient denies current vision changes, current dizziness, chest pain, difficulty breathing, and weakness. Patient has not taken anything [id number]. Patient does have a history of AFib. Review of Systems Constitutional: Negative for chills, fatigue and fever. Eyes: Positive for visual disturbance. Respiratory: Negative for cough. Cardiovascular: Negative for chest pain. Musculoskeletal: Positive for arthralgias (left ankle). Neurological: Positive for dizziness and syncope. Negative for weakness and headaches. Physical Exam Vitals reviewed. Constitutional: General: She is not in acute distress. Appearance: Normal appearance. She is not ill-appearing. HENT: Head: Normocephalic. Mouth/Throat: Lips: [place]. Eyes: Extraocular Movements: Right eye: Normal extraocular motion and no nystagmus. Left eye: Normal extraocular motion and no nystagmus. Cardiovascular: Rate and Rhythm: Normal rate. Pulmonary: Effort: Pulmonary effort is normal. Breath sounds: Normal breath sounds. Musculoskeletal: Right hand: Normal strength. Left hand: Normal strength. Left lower leg: Edema present. Left ankle: Swelling (and bruising) present. Tenderness present. Skin: General: Skin is warm. Neurological: Mental Status: She is alert and oriented to person, place, and time. Cranial Nerves: No facial asymmetry. Sensory: Sensation is intact. Motor: Weakness (left lower leg, due to injury) present. Gait: Gait abnormal (limping, using walker). Comments: A/Ox4 Psychiatric: Mood and Affect: Mood normal. Vitals: 07/07/24 0906 BP: 130/80 Pulse: 87 Resp: 20 Temp: 36.4 ??C (97.5 ??F) SpO2: 98% Weight: 79.4 kg (175 lb) Height: 165.1 cm (5' 5 ) Assessment/Plan --Sending patient to ER for further workup of syncopal episode and dizziness to rule out neurological etiology. Patient declines EMS and declines family member transportation. AMA form signed and scanned into chart. Diagnoses and all orders for this visit: Syncope, unspecified syncope type (Primary) Dizziness Acute left ankle pain Patient Education: --TO ER Disposition Treatment plan including expectations, follow up, and return precautions discussed with patient/parent, verbalizes understanding. Medication dosage, use, and potential adverse reactions discussed with patient/parent. Advised to follow up with PCP if symptoms do not resolve as expected or sooner if condition worsens. Signs/symptoms warranting ER evaluation reviewed. Patient and/or guardian was given an opportunity to ask questions, questions answered. Mimi De La Paz NP 07/07/24 9:36 AM This office note has been partially dictated using [employer] software, and as a result portions of the record may have been created with this software. Occasional wrong-word or '[id number]' substitutions may have occurred due to the inherent limitations of voice recognition software. Read the chartcarefully and recognize, using context, where substitutions have occurred. Cosigned by Fran Torre MD at 07/07/2024 10:49 AM CDT documented in this encounter Plan of Treatment Not on file documented as of this encounter Visit Diagnoses Diagnosis Syncope, unspecified syncope type- Primary Dizziness Dizziness and giddiness Acute left ankle pain documented in this encounter Historical Medications * This list may reflect changes made after this encounter. 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
--- OUTSIDE RECORDS SUMMARY | 2024-07-07 11:19 | XMS_ITS | Data Portability ---
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 Patient will come back in a year unless there are new symptoms. hector Not available 12/25/2022 11:41:59 Plan of Treatment Reminders Order Date Submit Date Provider Last Modified By Organization Details Last Modified Time Details Appointments None recorded . Lab urinalys is, dipstick 2022 023 hector [address], [address], [place], [address], 3 11:54:21 urinalys is, dipstick 2020 021 [email or web address] [address], [address], [place], [address], 1 10:14:53 Referral None recorded . Procedures None recorded . Surgeries None recorded . Imaging None recorded . Medication Orders None recorded . Patient TargetsNo targets recorded. Patient InstructionsNo instructions recorded. Reason for Referral None Reported. Results Created Date Observation Date Name Description Value Unit Range Abnormal Flag Note LastModifiedBy Organization Detail LastModifiedTime 12/22/1912/21/2020 IMAGE GUIDE D PAP AND HPV REGAR DLESS image guided Pap, HPV regardless of Pap result SEE RESULT S BELOW CASE REPOR T: Cytol ogy Gynec ologi benito Repor t Case: [id number] Autho yara grimm Provi julius: Latrice Bynum, MELIA Colle cted: 12/21 1059 Order ing Locat ion: [place] [facility] Recei cathi: 12/22 0109 First Scree n: Rao lechuga, [place] , [place] Speci men: Evan ruelas Pap - Image d, Cervi x STATE MENT OF ADEQU ACY: Satis facto ry for evalu ation Trans forma tion zone compo nent prese nt FINAL DIAGN OSIS: Negat leila for Intra epith eliviviane villarreal or Pablo lopez (NIL) Elect marquez de luna azar d by Rao lechuga, [place] , [place] on 2020 at 4:51 PM ----- ----- ----- ----- ----- ----- ----- ----- ----- ----- ----- ----- ----- ----- ----- ----- ----- ---- HPV RESUL TS: HPV mRNA E6/E7 : No HPV mRNA Detec grey NOTE: This high risk HPV mRNA assay detec ts fourt een high- risk HPV types (16, 18, 31, 33, 35, 39, 45, 51, 52, 56, 58, 59, 66, 68) witho ut diffe renti ation . COMME NT: Note: This speci men was revie wed by a Cytot echno logis t and/o r Patho logis t (as indic ated in this repor t) after evalu ation using the Thinp rep Imagi ng Syste m. CLINI BENITO INFOR MATIO N: Menst rual Statu s: LMP (if appli cable ): 000 Clini benito Histo ry/Pr eviou s Pap: Type of Neopl neisha (if appli cable ): Signi fican t Clini bentio Findi ngs: Other Histo ry: Hormo mahogany (if appli cable ): PAP EDUCA EVY L NOTE: The Pap Test is a scree jessenia test with an inher ent false negat leila rate. Liqui d-bas e sampl ing may decre ase, but will not elimi silke, false negat leila resul ts. A negat leila resul t does not precl ude the prese nce and/o r devel opmen t of disea se, since the prese nce of abnor mal cells in the sampl e depen ds on the locat ion of the lesio n and sampl ing techn ique. Leo nued regul ar scree jessenia is the best metho d of cance r preve ntion . If repor grey cytol ogic findi ng do not corre late with physi benito and/o r histo rical findi ngs, furth er inves tigat ion is recom jin d, as clini steph warrstephanie nted. Not Available [facility] (Lab) [address], [place], [address], 12/24/2020 17:55:00 12/26/19 23 12/25/2022 IMAGE GUIDE D PAP AND HPV REGAR DLESS image guided Pap, HPV regardless of Pap result SEE RESULT S BELOW CASE REPOR T: Cytol ogy Gynec ologi benito Repor t Case: [id number] Autho yara g Provi julius: Kimber Rm, FRANKIE Colle cted: 12/25 1430 Order ing Locat ion: [place] Patho [place] Recei cathi: 12/26 0619 First Scree n: Armida Jorge, [place] Speci men: Scree jessenia Pap - Image d, Cervi x STATE MENT OF ADEQU ACY: Satis facto ry for evalu ation Trans forma tion zone compo nent prese nt FINAL DIAGN OSIS: Negat leila for Intra epith elial Lesio n or Pablo lopez (NIL) . Shannan de luna azar d by Armida Jorge, [place] on 2022 at 9:08 AM ----- ----- ----- ----- ----- ----- ----- ----- ----- ----- ----- ----- ----- ----- ----- ----- ----- ---- HPV RESUL TS: HPV mRNA E6/E7 : No HPV mRNA Detec grey NOTE: This high risk HPV mRNA assay detec ts fourt een high- risk HPV types (16, 18, 31, 33, 35, 39, 45, 51, 52, 56, 58, 59, 66, 68) witho ut diffe renti ation . COMME NT: This speci men was revie wed by a Cytot echno logis t and/o r Patho logis t (as indic ated in this repor t) after evalu ation using the Thinp rep Imagi ng Syste m. CLINI BENITO INFOR MATIO N: Menst rual Statu s: LMP (if appli cable ): Clini benito Histo ry/Pr eviou s Pap: Type of Neopl neisha (if appli cable ): Signi fican t Clini benito Findi ngs: Other Histo ry: Hormo mahogany (if appli cable ): PAP EDUCA EVY L NOTE: The Pap Test is a scree jessenia test with an inher ent false negat leila rate. Liqui d-bas ed sampl ing may decre ase, but will not elimi silke, false negat leila resul ts. A negat leila resul t does not precl ude the prese nce and/o r devel opmen t of disea se, since the prese nce of abnor mal cells in the sampl e depen ds on the locat ion of the lesio n and sampl ing techn ique. Leo nued regul ar scree jessenia is the best metho d of cance r preve ntion . If repor grey cytol ogic findi ng do not corre late with physi benito and/o r histo rical findi ngs, furth er inves tigat ion is recom jin d, as clini steph welsh nted. Not Available [facility] (Lab) [address], [place], [address], 12/28/2022 10:11:43 12/26/19 23 12/25/2022 urina lysis , dipst ick Leukocytes neg Not Available [facility] [address], [place], [address], 12/25/2022 11:53:45 12/26/19 23 12/25/2022 urina lysis , dipst ick Nitrite neg Not Available [facility] [address], [place], [address], 12/25/2022 11:53:45 12/26/19 23 12/25/2022 urina lysis , dipst ick Urobilinogen neg Not Available [facility] jules [address], [place], [address], 12/25/2022 11:53:45 12/26/19 23 12/25/2022 urina lysis , dipst ick Protein neg Not Available [facility] [address], [place], [address], 12/25/2022 11:53:45 12/26/19 23 12/25/2022 urina lysis , dipst ick pH 6 Not Available [facility] [address], [place], [address], 12/25/2022 11:53:45 12/26/19 23 12/25/2022 urina lysis , dipst ick Specific [place] 1.006 Not Available [facility] [address], [place], [address], 12/25/2022 11:53:45 12/26/19 23 12/25/2022 urina lysis , dipst ick Ketone neg Not Available [facility], [place], [address], 12/25/2022 11:53:45 12/26/19 23 12/25/2022 urina lysis , dipst ick Bilirubin neg Not Available [facility] [address], [place], [address], 12/25/2022 11:53:45 12/26/1912/25/2022 urina lysis , dipst ick Glucose neg Not Available [facility] [address], [place], [address], 12/25/2022 11:53:45 12/26/1912/25/2022 urina lysis , dipst ick Appearance clear Not Available [facility] [address], [place], [address], 12/25/2022 11:53:45 12/26/1912/25/2022 urina lysis , dipst ick Color yellow Not Available [facility] [address], [place], [address], 12/25/2022 11:53:45 Result Notes None recorded. Problems Name Problem SNOMED Code Status Onset Date Resolution Date Notes Provider Name and Address Organization Details Recorded Time Adult health examinat ion Completed 201412/18/2020 ROUTINE MEDICAL EXAM;Rec orded Elsewher e: No Locat ion: [facility] S ource: EHR Special Education Associate maryan: N Elias ce ID: 0001 Willard lable Time: 08:45:00 AM Alysha peterson [facility] 09:28:03 Dysuria [id number] Completed 201812/18/2020 Dysuria; Recorded Elsewher e: No Locat ion: [facility] S ource: EHR Special Education Associate maryan: N Elias ce ID: 0001 Willard lable Time: 10:45:00 AM Alysha peterson [facility] 09:28:20 Abdomina l pain [id number] Completed 201112/18/2020 Abdomina l pain, other specifie d site;Rec orded Elsewher e: No [facility]: EHR Special Education Associate maryan: N Practi ce ID: 0001 Willard lable Time: 05:00:00 PM Alysha peterson, [facility] 1 09:27:59 Increase d frequenc y of urinatio n [id number] Completed 201812/18/2020 Frequenc y of micturit ion;Hussain rded Elsewher e: No Locat ion: [facility] S ource: EHR Special Education Associate maryan: N Practi ce ID: 0001 Willard lable Time: 10:45:00 AM Alysha peterson, [facility] 1 09:27:53 Postoper ative follow-u p visit Completed 201312/18/2020 Follow-u p examinat ion, followin g unspecif ied surgery; Recorded Elsewher e: No Locat ion: [facility] S ource: EHR Special Education Associate maryan: N Practi ce ID: 0001 Willard lable Time: 04:15:00 PM Alysha peterson, [facility] 1 09:28:18 Vaginal wall prolapse [id number] Active 2011 Alysha peterson [facility] 1 09:28:15 Evaluati on finding Completed 201812/18/2020 Hematuri a, unspecif ied;Hussain rded Elsewher e: No Locat ion: [facility] S ource: EHR Special Education Associate maryan: N Practi ce ID: 0001 Willard lable Time: 10:30:00 AM Alysha peterson [facility] 1 09:28:05 Urinary tract infectio us disease [id number] Completed 201112/18/2020 Urinary tract infectio n, site not specifie d;Practi ce ID: 0001 [facility] 09:28:24 Uterine prolapse [id number] Completed 201112/18/2020 Uterine prolapse without mention of vaginal wall prolapse ;Practic e ID: 0001 Alysha peterson [facility] 1 09:28:02 Vaginiti s and vulvovag initis Completed 201112/18/2020 Vaginiti s and vulvovag initis, unspecif ied;Prac jude ID: 0001 Alysha peterson [facility] 09:27:57 Atrophic vulva [id number] Completed 201112/18/2020 Atrophy of vulva;Re corded Elsewher e: No Locat ion: [facility] S ource: EHR Special Education Associate maryan: Y Practi ce ID: 0001 Willard lable Time: 10:00:00 AM Alysha Bird [facility] 1 09:28:[address] Concept Completed 201812/18/2020 Well woman check w/o abnormal finding; Recorded Elsewher e: No Locat ion: [facility] S ource: EHR Special Education Associate maryan: N Practi ce ID: 0001 Willard lable Time: 10:30:00 AM Alysha Bird [facility] 1 09:28:11 Disorder of breast [id number] Completed 201812/18/2020 Disorder of breast, unspecif ied;Hussain rded Elsewher e: No Locat ion: [facility] S ource: EHR Special Education Associate maryan: N Practi ce ID: 0001 Willard lable Time: 10:30:00 AM Alysha peterson [facility] 1 09:28:27 Microsco pic hematuri a [id number] Completed 201412/18/2020 MICROSCO PIC HEMATURI A;Record ed Elsewher e: No Locat ion: [facility] S ource: EHR Special Education Associate maryan: N Practi ce ID: 0001 Willard lable Time: 08:45:00 AM Alysha peterson [facility] 1 09:27:[address] Concept Completed 201512/18/2020 Encntr for general adult medical exam w/o abnormal findings ;Recorde d Elsewher e: No Locat ion: [facility] S ource: EHR Special Education Associate maryan: N Practi ce ID: 0001 Willard lable Time: 08:30:00 AM Alysha peterson [facility] 1 09:28:08 Speciali zed medical examinat ion Completed 201412/18/2020 Gynecolo gical Examinat ion;Hussain rded Elsewher e: No Locat ion: [facility] S ource: EHR Special Education Associate maryan: N Practi ce ID: 0001 Willard lable Time: 08:45:00 AM Alysha peterson [facility] 1 09:28:22 Routine antenata l care Completed 201112/18/2020 Supervis ion of other normal pregnanc y;Record ed Elsewher e: No Locat ion: [facility] S ource: EHR Special Education Associate maryan: N Practi ce ID: 0001 Willard lable Time: 10:00:00 AM Alysha peterson [facility] 1 09:27:51 Midline cystocel e [id number] Completed 201112/18/2020 Cystocel e Without Prolapse ;Recorde d Elsewher e: No Locat ion: [facility] S ource: EHR Special Education Associate maryan: N Practi ce ID: 0001 Willard lable Time: 05:45:00 PM Alysha peterson [facility] 1 09:28:16 Screenin g for malignan t neoplasm of rectum Completed 201512/18/2020 Encounte r for screenin g for malignan t neoplasm of rectum;R ecorded Elsewher e: No Locat ion: [facility] S ource: EHR Special Education Associate maryan: N Pracbenoit ce ID: 0001 Willard lable Time: 08:30:00 AM [facility] 09:28:06 Screenin g for malignan t neoplasm of cervix Completed 201412/18/2020 Pap Smear;Pr actice ID: 0001 Alyshaolivia Bird [facility] 09:27:54 Prolapse of female genital organs [id number] Completed 201212/18/2020 Other specifie d genital prolapse ;Practic e ID: 0001 Alysha Doran [facility] 09:28:[address] Concept Completed 201812/18/2020 Encounte r for general adult medical exam w abnormal findings ;Practic e ID: 0001 Alysha Bird [facility] 09:28:09 Atrial fibrilla tion [id number] Active 2020 Alysha Bird [facility] 10:07:44 Malignan t tumor of breast 101267992 Completed 202012/21/2020 Alyshadago peterson [facility] 10:10:53 Notes:BREAST CANCER DX IN Problem Notes None recorded. Procedures Surgical History Date Name Laterality Status Provider Name and Address Organization Details Recorded Time 12/22/19 Date of Last Pap Smear completed Elisabte Weston [facility] 12/25/2022 11:45:46 02/01/20 Date of Last Mammogram completed Alysha Bird [facility] 12/21/2020 10:10:12 02/01/20 20 completed Alyshaolivia Bird [facility] 12/21/2020 10:10:15 03/31/20 13 supracervical hysterectomy completed Alysha Doran [facility] 12/18/2020 09:55:53 04/02/19 06 completed Alysha Doran [facility] 12/18/2020 09:36:48 04/02/19 02 Hysteroscopy completed [facility] 12/18/2020 09:55:12 Imaging Results None recorded. Procedure Notes None recorded. Medical Equipment None Reported. Allergies Allergen ID Allergen Name Allergen Category Reaction Reaction Severity Criticality Documentation Date Start Date Code Code System Note Provider Name and Address Organization Details Recorded Time 32668 omeprazol e medicatio n Not available Not available Not available 03/19/2020 7646 RxNorm [facility] 09:23:29 29148 lisinopri l medicatio n Not available Not available Not available 03/19/2020 97336 RxNorm [facility] 09:23:22 04594 Product containin g 3-hydroxy -3-methyl glutaryl- coenzyme A reductase inhibitor (product) medicatio n Not available Not available Not available 03/19/2020 22242 009 SNOMED Alysha Bird [facility] 09:23:32 68573 losartan medicatio n Not available Not available Not available 03/19/2020 16640 RxNorm [facility] 09:23:26 46527 Nexium medicatio n Not available Not available Not available 12/21/2020 75263 9 RxNorm Alysha Bird [facility] 09:39:40 Medications Name Sig Start Date Stop Date Status Note LastModified by Organization Details LastModified Time Singulair 10 mg tablet take 1 tablet (10MG) by oral route every day in the evening 11/19 completed Prescrib ed Elsewher e: No Locat ion: [facility] odify By: claudia holt DateTime : 05/24/19 12 03:00:00 PM Not Available Not Available Not Available Miralax 17 gram/dose oral powder take by oral route every day mixed with 8 oz. water, juice, soda, coffee or tea 12/18 completed Prescrib ed Elsewher e: Yes Loca tion: [facility] odify By: eben ramunter DateTime : 04/04/19 19 10:45:00 AM Not Available Not Available Not Available Augmentin 875 mg-125 mg tablet take 1 tablet by oral route every 12 hours 01/29 completed Prescrib ed Elsewher e: No Locat ion: [facility] odify By: gmedical Encount er DateTime : 01/28/20 13 02:00:00 PM Not Available Not Available Not Available Ceftin 500 mg tablet take 1 tablet (500MG) by oral route every 12 hours 04/08 completed Prescrib ed Elsewher e: No Locat ion: [facility] odify By: ifeoma Alamo ncounter DateTime : 01/30/20 13 03:00:59 PM Not Available Not Available Not Available nitroglyc indra 400 mcg/spray transling ual aerosol place 1 spray by translin gual route onto or under the tongue at the first sign of an attack; no more than 3 sprays are recommen ded within a 15 minute period. 09/09 completed Prescrib ed Elsewher e: Yes Loca tion: [facility] odify By: claudia holt DateTime : 01/28/20 13 02:00:00 PM Not Available Not Available Not Available Vivelle-D ot 0.1 mg/24 hr transderm al patch apply 1 patch by transder mal route 2 times every week 09/09 completed Prescrib ed Elsewher e: No Locat ion: [facility] odify By: derick Jeffou nter DateTime : 09/10/19 15 08:45:00 AM Not Available Not Available Not Available Laxative (sennosid es) 25 mg tablet take 2 tablet by oral route every day 11/19 completed Prescrib ed Elsewher e: Yes Loca tion: [facility] odify By: claudia holt DateTime : 05/24/19 12 03:00:00 PM Not Available Not Available Not Available cephalexi n 250 mg capsule take 1 capsule by oral route every 6 hours 09/09 completed Prescrib ed Elsewher e: Yes Loca tion: [facility] odify By: claudia holt DateTime : 04/08/19 14 08:30:00 AM Not Available Not Available Not Available diltiazem CD 240 mg capsule,e xtended release 24 hr Take 1 capsule every day by oral route. 12/25 completed Not Available Not Available Not Available ibuprofen 200 mg capsule take 1 capsule by oral route every 6 hours as needed 04/08 completed Prescrib ed Elsewher e: Yes Loca tion: [facility] odify By: ifeoma ramunter DateTime : 05/24/19 12 03:00:00 PM Not Available Not Available Not Available famotidin e 40 mg tablet Take 1 tablet every day by oral route. active Not Available Not Available No t Available Diflucan 150 mg tablet take 1 tablet by oral route once 05/01 completed Prescrib ed Elsewher e: No Locat ion: [facility] odify By: tmryan Cally ncounter DateTime : 09/23/19 15 12:39:55 PM Not Available Not Available Not Available Nexium 40 mg capsule,d elayed release take 1 capsule (40MG) by oral route every day 11/19 completed Prescrib ed Elsewher e: No Locat ion: [facility] odify By: claudia holt DateTime : 05/24/19 12 03:00:00 PM Not Available Not Available Not Available amlodipin e 2.5 mg tablet take 1 tablet (2.5MG) by oral route every day 11/19 completed Prescrib ed Elsewher e: No Locat ion: [facility] odify By: claudia holt DateTime : 05/24/19 12 03:00:00 PM Not Available Not Available Not Available naproxen 125 mg/5 mL oral suspensio n take 10 millilit er by oral route every 6 - 8 hours as needed with food 05/01 completed Prescrib ed Elsewher e: Yes Loca tion: [facility] odify By: eben ramuntjamie DateTime : 09/10/19 15 08:45:00 AM Not Available Not Available Not Available sotalol 120 mg tablet Take 1 tablet twice a day by oral route. active Not Available Not Available No t Available spironola ctone 25 mg tablet Take 1 tablet every day by oral route. active Not Available Not Available No t Available Zantac 25 mg/mL injection solution infuse by intraven ous route every 8 hours over 09/09 completed Prescrib ed Elsewher e: Yes Loca tion: [facility] odify By: claudia holt DateTime : 04/08/19 14 08:30:00 AM Not Available Not Available Not Available Macrobid 100 mg capsule take 1 capsule by oral route every 12 hours with food 12/18 completed Prescrib ed Elsewher e: No Locat ion: [facility] odify By: kpanyik Guerita suero DateTime : 11/16/19 19 10:45:00 AM Not Available Not Available Not Available cefadroxi l 500 mg capsule take 2 capsule (1G) by oral route every day 01/27 completed Prescrib ed Elsewher e: No Locat ion: [facility] odify By: ifeoma ramuntjamie DateTime : 12/14/19 12 09:15:00 AM Not Available Not Available Not Available Metrogel Vaginal 0.75 % (37.5 mg/5 gram) insert 1 applicat orful (37.5MG) by vaginal route every day at bedtime 01/27 completed Prescrib ed Elsewher e: No Locat ion: [facility] odify By: ifeoma londoner DateTime : 12/25/19 12 10:01:54 AM Not Available Not Available Not Available omeprazol e 10 mg capsule,d elayed release take 2 capsule by oral route every day before a meal 05/01 completed Prescrib ed Elsewher e: Yes Loca tion: [facility] odify By: eben ramunter DateTime : 01/28/20 13 02:00:00 PM Not Available Not Available Not Available betametha sone valerate 0.1 % topical cream apply by topical route every day a thin layer to the affected area(s) 01/27 completed Prescrib ed Elsewher e: No Locat ion: [facility] odify By: ifeoma ramuntjamie DateTime : 11/28/19 12 05:00:00 PM Not Available Not Available Not Available Mapap (acetamin ophen) 500 mg capsule take 2 capsule by oral route every 6 hours as needed 09/09 completed Prescrib ed Elsewher e: Yes Loca tion: [facility] odify By: claudia holt DateTime : 04/08/19 14 08:30:00 AM Not Available Not Available Not Available pantopraz ole 40 mg tablet,de layed release Take 1 tablet every day by oral route. active Not Available Not Available No t Available simvastat in 20 mg tablet take 1 tablet (20MG) by oral route every day in the evening 11/19 completed Prescrib ed Elsewher e: No Locat ion: [facility] odify By: claudia holt DateTime : 05/24/19 12 03:00:00 PM Not Available Not Available Not Available Cipro 500 mg tablet take 1 tablet by oral route every 12 hours 05/01 completed Prescrib ed Elsewher e: No Locat ion: [facility] odify By: eben dacosta DateTime : 09/22/19 15 10:58:56 AM Not Available Not Available Not Available losartan 25 mg tablet take 1 tablet by oral route every day 05/01 completed Prescrib ed Elsewher e: Yes Loca tion: [facility] odify By: eben ramunter DateTime : 01/28/20 13 02:00:00 PM Not Available Not Available Not Available hydrochlo rothiazid e 12.5 mg capsule take 2 capsule by oral route every day 12/18 completed Prescrib ed Elsewher e: Yes Loca tion: [facility] odify By: ifeoma Alamo ncounter DateTime : 01/28/20 13 02:00:00 PM Not Available Not Available Not Available niacin 500 mg tablet take 1 tablet (500MG) by oral route 3 times every day 09/09 completed Prescrib ed Elsewher e: No Locat ion: [facility] odify By: claudia holt DateTime : 05/24/19 12 03:00:00 PM Not Available Not Available Not Available isosorbid e mononitra te 10 mg tablet take 1 tablet by oral route 2 times every day given 7 hours apart 09/09 completed Prescrib ed Elsewher e: Yes Loca tion: [facility] odify By: claudia holt DateTime : 01/28/20 13 02:00:00 PM Not Available Not Available Not Available Proventil HFA 90 mcg/actua tion aerosol inhaler inhale 2 puff by inhalati on route every 4 - 6 hours as needed 04/08 completed Prescrib ed Elsewher e: Yes Loca tion: [facility] odify By: ifeoma [place]amo ncounter DateTime : 01/28/20 13 02:00:00 PM Not Available Not Available Not Available aspirin 81 mg tablet take 1 tablet (81MG) by oral route every day 12/18 completed Prescrib ed Elsewher e: No Locat ion: [facility] odify By: manuel holt DateTime : 05/24/19 12 03:00:00 PM Not Available Not Available Not Available multivita min capsule take 1 capsule by oral route every day 12/18 completed Prescrib ed Elsewher e: Yes Loca tion: [facility] odify By: ifeoma dacosta DateTime : 04/08/19 14 08:30:00 AM Not Available Not Available Not Available tamoxifen 20 mg tablet Take 1 tablet every day by oral route. active Not Available Not Available No t Available Benadryl 25 mg capsule take 2 capsule by oral route every 4 - 6 hours as needed 05/01 completed Prescrib ed Elsewher e: Yes Loca tion: [facility] odify By: eben ramuntjamie DateTime : 09/10/19 15 08:45:00 AM Not Available Not Available Not Available Bactrim DS 800 mg-160 mg tablet take 1 tablet by oral route every 12 hours 01/27 completed Prescrib ed Elsewher e: No Locat ion: [facility] odify By: ifeoma ramuntjamie DateTime : 12/21/19 12 08:30:00 AM Not Available Not Available Not Available Estrace 0.01% (0.1 mg/gram) vaginal cream insert (1G) by vaginal route every week 11/19 completed Prescrib ed Elsewher e: No Locat ion: [facility] odify By: mai holt DateTime : 11/01/19 12 01:32:40 PM Not Available Not Available Not Available iron ER 325 mg (65 mg iron) capsule,e xtended release take 1 Tablet by Oral route 3 times every day 02/03 completed Prescrib ed Elsewher e: Yes Loca tion: [facility] odify By: ifeoma dacosta DateTime : 01/28/20 13 02:00:00 PM Not Available Not Available Not Available Magnesium (oxide/AA chelate) 300 mg capsule 02/03 completed Prescrib ed Elsewher e: Yes Loca tion: [facility] odify By: ifeoma ramuntjamie DateTime : 01/28/20 13 02:00:00 PM Not Available Not Available Not Available Premarin 0.625 mg/gram vaginal cream insert (1G) by vaginal route every day cyclical ly, 3 weeks on and 1 week off 11/19 completed Prescrib ed Elsewher e: No Locat ion: [facility] odify By: mai holt DateTime : 10/02/19 12 10:00:00 AM Not Available Not Available Not Available cranberry fruit 475 mg capsule 11/19 completed Prescrib ed Elsewher e: Yes Loca tion: [facility] odify By: claudia holt DateTime : 10/30/19 12 04:30:00 PM Not Available Not Available Not Available DILT-XR 120 mg capsule, extended release take 1 capsule by oral route every day 12/25 completed Not Available Not Available Not Available Vesicare 5 mg tablet take 1 tablet by oral route every day 04/08 completed Prescrib ed Elsewher e: Yes Loca tion: [facility] odify By: ifeoma dacosta DateTime : 01/28/20 13 02:00:00 PM Not Available Not Available Not Available amoxicill in 12/25 completed Not Available Not Available Not Available tamoxifen 12/25 completed Not Available Not Available Not Available hydrochlo rothiazid e 12/25 completed Not Available Not Available Not Available Vitamin D3 10 mcg (400 unit) capsule 11/19 completed Prescrib ed Elsewher e: Yes Loca tion: [facility] odify By: claudia holt DateTime : 05/24/19 12 03:00:00 PM Not Available Not Available Not Available omega-3 fatty acids-fis h oil 340 mg-1,000 mg capsule 11/19 completed Prescrib ed Elsewher e: No Locat ion: [facility] odify By: claudia holt DateTime : 05/24/19 12 03:00:00 PM Not Available Not Available Not Available Veinerect 12.5 mg-625 mg-125 mg capsule 05/01 completed Prescrib ed Elsewher e: Yes Loca tion: [facility] odify By: eben dacosta DateTime : 04/04/19 19 10:45:00 AM Not Available Not Available Not Available D3-2000 50 mcg (2,000 unit) capsule active Not Available Not Available Not Available calcium 760 mg (as citrate)/ 3.5 gram oral granules active Not Available Not Available Not Available krill oil 500 mg capsule 11/19 completed Prescrib ed Elsewher e: Yes Loca tion: [facility] odify By: mai holt DateTime : 11/20/19 12 05:00:00 PM Not Available Not Available Not Available ConZip 100 mg capsule,e xtended release take 1 capsule by oral route every day 05/01 completed Prescrib ed Elsewher e: Yes Loca tion: [facility] odify By: eben ramuntjamie DateTime : 04/08/19 14 08:30:00 AM Not Available Not Available Not Available Minden 3 350 mg- 400 mg capsule 09/09 completed Prescrib ed Elsewher e: Yes Loca tion: [facility] odify By: claudia holt DateTime : 04/08/19 14 08:30:00 AM Not Available Not Available Not Available Azo Cranberry Plus Vit C 250 mg-60 mg capsule 01/27 completed Prescrib ed Elsewher e: Yes Loca tion: [facility] odify By: ifeoma ramuntjamie DateTime : 11/20/19 12 05:00:00 PM Not Available Not Available Not Available Eliquis 5 mg tablet Take 1 tablet twice a day by oral route. active Not Available Not Available No t Available Eliquis 2.5 mg tablet take 1 tablet by oral route 2 times every day 12/21 completed Not Available Not Available Not Available Eliquis 12/25 completed Not Available Not Available Not Available melatonin 10 mg capsule 05/01 completed Prescrib ed Elsewher e: Yes Loca tion: [facility] odify By: eben ramuntjamie DateTime : 04/08/19 14 08:30:00 AM Not Available Not Available Not Available Multi Vitamin 9 mg iron/15 mL oral liquid 05/01 completed Prescrib ed Elsewher e: Yes Loca tion: [facility] odify By: britanyan E ncounter DateTime : 05/01/19 10:30:00 AM Not Available Not Available Not Available Metamucil 0.4 gram capsule 12/25 completed Not Available Not Available Not Available Vitals Date Recorded Body height Body mass index (BMI) Body weight Systolic blood pressure Diastolic blood pressure Systolic blood pressure Diastolic blood pressure Provider Name and Address Organization Details Last Updated DateTime 162.56 cm 33.5 kg/m2 13540.5 1 g 167 mm[Hg] 76 mm[Hg] 160 mm[Hg] 70 mm[Hg] Alysha Bird [facility] 09:46:15 Date Recorded Body height Body mass index (BMI) Body weight Systolic blood pressure Provider Name and Address Organization Details Last Updated DateTime 12/25/2022 162.56 cm 33.1 kg/m2 64714.33 g 122 mm[Hg] Elisabet Weston [facility] 12/25/2022 11:42:19 Social History Question Answer Notes LastModified by Organizat ion Details LastModified Time Tobacco Smoking Status Never Smoker Alysha Bird [facility] 12/18/2020 09:42:40 Are You Blind Or Do You Have Difficulty Seeing? No Information not available 12/25/2022 Are You Deaf Or Do You Have Serious Difficulty Hearing? No Information not available 12/25/2022 Sex: Unknown Functional Status Question Answer Note LastModified by Organizat ion Details LastModified Time Do you have difficulty walking or climbing stairs? No Information not available 12/25/2022 Are you able to walk? YESWOREST Information not available 12/25/2022 Are you able to care for yourself? Yes Information not available 12/25/2022 Do you have difficulty dressing or bathing? No Information not available 12/25/2022 Mental Status None recorded. Family History Relationship Description Onset Age of this Age Resolved Age Notes LastModified by Organization Details LastModified Time Brother Heart disease [email or web address] Not available 2020 09:41:52 Father Heart disease [email or web address] Not available 2020 09:41:52 Mother Heart disease [email or web address] Not available 2020 09:41:52 Medical History Condition Response Other Y Heart Disease Y Cancer Y Gynecological History Statement/Question Response Abnormal Pap N Date of Last Mammogram 02/01/2020 Date of LMP 04/02/1999 On BCP's at Conception? N STIs/STDs N HPV Vaccine N Current Control Method Menopause 02/01/2020 Age of first menstrual cycle 11 Date of Last Pap Smear 12/21/2020 Sexual Problems? N LMP Definite 04/02/2005 Obstetrics History GPAL:G 2 P 2 0 0 2 Type Value Full Term 2 Living 2 Total 2 Past Encounters Encounter ID Performer Location Encounter Start Date Encounter Closed Date Diagnosis/Indication Diagnosis SNOMED-CT Code Diagnosis ICD10 Code Diagnosis Note [id number] Latrice Dorman [place] [address] [address] 12/21/2020 09:17:23 12/22/2020 22:47:04 Gynecologic examination 40647128 Z01.419 Take Calcium with Vitamin D 12-1500mg daily. Do monthly self breast exams. It is advised to get annual flu shot in the fall and she could obtain at [facility] or [facility] care clinic. If you haven't received the Tdap vaccine in the last 10 years you should obtain one as well. Have mammogram yearly, bone density every 2-3 years and colonoscop y every 5-10 years depending on findings and history. Is under care of dominik for her breasts. Declined exam here. Declined bone density. Pt aware of recommenda tion for pap but does still want every other year. CT next week d/t hematuria. Currently under the care of urologist (Dr Ch). Engage in daily exercise of low impact aerobic exercise 45-60 minutes 4-5 times weekly. Avoid tobacco and illicit drugs as well as using moderation with alcohol intake less than 1-2 8 oz beverages daily. This lifestyle behavior pattern will lead to less health conditions and longer life span. If BMI greater than 25 weight watchers or dietary consult advised. Questions have been answered. Patient appears to understand instructio ns, but if you have any further questions call or respond to this email. [id number] SHILA [facility] [place] [address] [address] 12/25/2022 11:30:56 12/25/2022 12:10:55 Increased frequency of urination 812346994 R35.0 ua normal, cx sent Gynecologi c examination 69854785 Z01.419 Take Calcium with Vitamin D daily. Do monthly self breast exams. It is advised to get annual flu shot in the fall and she could obtain at [facility] or [facility] care clinic. If you haven't received the Tdap vaccine in the last 10 years you should obtain one as well. Have mammogram yearly, bone density every 2-3 years and colonoscop y every 5-10 years depending on findings and history. Engage in daily exercise of low impact aerobic exercise 45-60 minutes 4-5 times weekly. Avoid tobacco and illicit drugs as well as using moderation with alcohol intake less than 1-2 8 oz beverages daily. This lifestyle behavior pattern will lead to less health conditions and longer life span. If BMI greater than 25 weight watchers or dietary consult advised. Questions have been answered. Patient appears to understand instructio ns, but if you have any further questions call or respond to this email WWEno hx of abnormal papslast pap 2020 - normaldisc ussed pap guidelines with pt, pt request pap todaySTI testing declinedma mmogram - UTD, follows with oncology every 6 monthscolo noscopy - has order through [facility] - unsure, encouraged to check and notify officeRTC in 1 year or sooner if needed Health Concerns Section Related Observation LastModified by Organization Detai ls LastModified Time None Recorded Concern Status LastModified by Organization Details LastModified Time None Recorded Advance Directives Directive None Recorded Payers Encounter Date Sequence Insurance Name Policy Number Policy Begum Covered Member ID Begum Member ID Guarantor Name 12/21/2020 1 [place] Radha Castellanos [id number] Radha Castellanos 12/21/2020 2 [place] [id number] Radha Castellanos [id number] Radha Castellanos 12/25/2022 1 [place] Radha Castellanos [id number] Radha Castellanos 12/25/2022 2 [place] [id number] Radha Castellanos [id number] Radha Castellanos Notes Date Note Type Note Provider Name and Address Organization Details Recorded Time 12/21/2020 text/html Annual GYNReport ed bypatient.Menstrual cycle:Menopausal Urinary symptoms:No hematuria; No incontinence Vulva:No genital lesion Vagina:Normal vaginal discharge Breast:No breast pain; No breast lump; No nipple discharge Sexual complaints:No sexual complaints; No pain during intercourse; Normal libido Menopausal Symptoms:No menopausal symptoms; Normal vaginal lubrication Psychological symptoms:No depression; No anxiety; No PMDD Latrice peterson [facility] 12/27/2020 00:08:11 12/25/2022 text/html Annual Manager Development Post-MenopausalRepo rted bypatient.Menopausa l Symptoms:no menopausal symptoms; normal vaginal lubrication Vaginal Bleeding:history of menopause having occurred; no history of post menopausal bleeding Urinary Symptoms:no hematuria; no incontinence; no nocturia;urinary frequency: times during the day Vulva:no genital lesion; no vulvar atrophy Vagina:normal vaginal discharge; no vaginal atrophy Breast:no breast lump; no nipple discharge; no breast pain Sexual Complaints:no sexual complaints Psychological Symptoms:no depression; no anxiety Preventive Measures:encourage regular mammograms starting age 40; encourage self breast examination; encourage regular exercise; encourage no tobacco use; hx of right breast cancer, follows with oncology every 6 months. On tamoxifen colonoscopy due per pt, has order from PCP unsure when last dexa, thinks this yearNotes:hx of supracervical hyst in 2013 SHILA [facility]con [address], [place], [address], [place] [facility] 12/25/2022 12:09:22 OBGyn Episode Ob Episode Information Episode Created Date Number of Fetuses Patient Bloodtype Patient rh Status Prepregnancy Weight lbs Domestic Partner Domestic Partner Phone Father Name Ecdis N Navigation Operator Status 12/19/19 21 1 CLOSED Fetus Data First Name Last Name Admitted to NICU Weight (g) Sex Living Outcome Pediatric Complications Fetus ID Race Codes Race Delivery Type F [id number] Vaginal Delivery Basil Calculation Initial Basil Date Initial Exam Date Initial Exam Provider Initial Ultrasound Date Last Menstrual Period Date Ultra Sound Weeks Gestation 0 Eighteen To Twenty Week Basil Update Ultra Sound Date Fundal Height At Umbil Quickening Date Ultra Sound Latest Weeks Gestation Final Basil Confirmed By Final Basil Confirmed Date Final Basil Date Ultra Sound Latest Days Gestation 0 0 Menstrual History Last Menstrual Date Menses Monthly On Bcp Conception Prior Menses Frequency Hcg Plus Date Menarche Onset Age Delivery Information Delivery Date Delivery Type Labor Anesthesia Weeks Gestation Incision Type Labor Labor Length Hrs Delivered By Post Complications Tubal Sterilization Discharge Date Comments 7 Lizzette Discharge Information Feeding Method Contraceptive Method Maternal HG B and HCT Levels Ob Episode Information Episode Created Date Number of Fetuses Patient Bloodtype Patient rh Status Prepregnancy Weight lbs Domestic Partner Domestic Partner Phone Father Name Ecdis N Navigation Operator Status 12/19/19 21 1 CLOSED Fetus Data First Name Last Name Admitted to NICU Weight (g) Sex Living Outcome Pediatric Complications Fetus ID Race Codes Race Delivery Type M [id number] Vaginal Delivery Basil Calculation Initial Basil Date Initial Exam Date Initial Exam Provider Initial Ultrasound Date Last Menstrual Period Date Ultra Sound Weeks Gestation 0 Eighteen To Twenty Week Basil Update Ultra Sound Date Fundal Height At Umbil Quickening Date Ultra Sound Latest Weeks Gestation Final Basil Confirmed By Final Basil Confirmed Date Final Basil Date Ultra Sound Latest Days Gestation 0 0 Menstrual History Last Menstrual Date Menses Monthly On Bcp Conception Prior Menses Frequency Hcg Plus Date Menarche Onset Age Delivery Information Delivery Date Delivery Type Labor Anesthesia Weeks Gestation Incision Type Labor Labor Length Hrs Delivered By Post Complications Tubal Sterilization Discharge Date Comments 0 Tigre Discharge Information Feeding Method Contraceptive Method Maternal HG B and HCT Levels
--- OUTSIDE RECORDS SUMMARY | 2024-07-07 11:19 | XMS_ITS | Encounter Summary ---
Author Organization [facility] Address [address] [place] [address] Care Team Providers Care Dairy Tester Name Role Phone Stef Luciano MD Primary Care Provider [phone] Yenni Norman MD Unavailable [phone] Adrián Barrios MD Unavailable [phone] Encounter Details Date Type Department Care Team (Late st Contact Info) Description 10/06/2020 Abstract [facility] [address] Betina Scott MA Social History Tobacco Use Types Packs/Day Years Used Date Smoking Tobacco: Never Smokeless Tobacco: Never Alcohol Use Standard Drinks/Week Comments Never 0 (1 standard drink = 0.6 oz pur e alcohol) AUDIT-C Answer Date Recorded Q1: How often do you have a drink containing alc ohol? Never 06/04/2020 Average Number of Drinks Not on file 021 Frequency of Binge Drinking Not on file 07/2020 Comments Unknown Sex and Gender Information Value Date Recorded Sex Assigned at Not on file Legal Sex Female 10:56 PM CDT Gender Identity Not on file Sexual Orientation Not on file COVID-19 Exposure Response Date Recorded In the last month, have you been in contact with someone who was confirmed or suspected to have Coronavirus / COVID-19? No / Unsure 09/23/2020 9:38 AM CDT documented as of this encounter Plan of Treatment Upcoming Encounters Date Type Department Care Team (Late st Contact Info) Description 07/31/2024 2:15 PM CDT Office Visit [facility], [address] [place], [place] [id number] Yenni Norman MD Three [facility]. [address] [place], [place] [id number] documented as of this encounter Procedures Procedure Name Priority Date/Time Associated Diagnosis Comments LIPID PANEL Routine 10/05/2020 documented in this encounter Results * LIPID PANEL (10/05/2020) CHOLESTEROL 181 HDL 56 TRIGLYCERIDES 92 LDL (CALCULATED) 108 10/05/2020 us Doc [facility] Final Result documented in this encounter Visit Diagnoses Not on filedocumented in this encounter Care Teams Dairy Tester Relationship Specialty Start Date End Date Stef Luciano MD [address] [facility] [address] [place] [address] PCP - General FAMILY PRACTICE 06/03/20 Yenni Norman MD Three [facility]. [address] [place] [address] Consulting Physician CARDIOVASCULAR DISEASE 07/19/20 Adrián Barrios MD [address] [place] [address], [address] [place], [place] [id number] Referring Physician MEDICAL ONCOLOGY 02/05/20 documented as of this encounter
--- OUTSIDE RECORDS SUMMARY | 2024-07-07 11:19 | XMS_ITS | Continuity of Care Document ---
Author Organization [facility] Address [address] [place] [address] utive [facility] [address] [place] [address] Phone Care Team Providers Care Library Clerk Name Role Phone Grant Whaley Unavailable Unavailable Procedures Procedure Date Office/outpatient Visit, [facility] Office/outpatient Visit, [facility] Advance Directives Directive Yes / No Effective Date File Name No Information Encounters Encounter Description Practice Location Reason(s) For Visit Diagnoses Date Provider Providers Copied on Encounter Office/outpat ient Visit, [facility], [address] [place], [place] [address] [address], [place], [place], [id number], [place] tel:[phone] [facility] No Information 0 Krishnasamy Grant. [address], [address], [place]. tel:[phone] Office/outpat ient Visit, [facility], [address] [place] [address] [address], [place], [place], [id number], tel:[phone] [facility] No Information 0 Krishnasamy Grant. [address] [address], [place], [address], [place]. tel:[phone] Family History Family Member Type Diagnosis Age At Onset No Information Payers Payer name Insurance type Covered green party ID Authoriza tion(s) No Information Social History Type Description Quantity Date Captured Comments Sex Female Smoking Status No Information Chief Complaint And Reason For Visit No Information Reason For Referral Reason For Referral No Information History Of Present Illness Encounter Date Complaint History Of Prese nt Illness No Information Functional Status Date Functional Assessmen t No Information Instructions Date Instruction Additional Infor mation No Information Assessments Type Assessment Date No Information Patient Care Teams Name Effective Dates (start - stop) Status Members No Information
--- OUTSIDE RECORDS SUMMARY | 2024-07-07 11:19 | XMS_ITS | Clinical Summary ---
Author Organization [facility] Address [address] [facility], [address] [address] Phone Care Team Providers Care Oil Well Fishing Tool Operator Name Role Phone Stef Luciano MD Primary Care Provider Medications polyethylene glycol (MIRALAX) Powder Mix the entire bottle with 64 oz of a clear liquid. Use as directed by the office for colonoscopy prep. 255 g 8 Active Social History Tobacco Use Types Packs/Day Years Used Date Smoking Tobacco: Never Assessed Comments Unknown Sex and Gender Information Value Date Recorded Sex Assigned at Not on file Legal Sex Female 9:53 AM CDT Gender Identity Not on file Sexual Orientation Not on file Plan of Treatment Health Maintenance Due Date Last Done Comments DEXA Bone Density 1945 Hepatitis C Virus (HCV) Screening 1945 Pneumococcal Immunization (50+ years) (2 of 2 - PCV) 12/29/2019 12/28/2018 Respiratory Syncytial Virus (RSV) Immunization (Adult) (1 - 1-dose 75+ series) 2021 Influenza Immunization (#1) 12/02/202312/02, 12/28/2018, 01/09/2018, Additional history exists SARS-COV-2 Immunization ( season) 2023 01/04/2021, 06/24/2020, 05/27/2020 DTaP/Tdap/Td Immunization Discontinued 12/25/2014 TdaP Immunization Completed 12/25/2014 Colonoscopy High Risk Discontinued 06/07/2017, 012 Colonoscopy Discontinued 06/07/2017, 05/05/2011 Colorectal Cancer Screening Discontinued Pneumococcal Immunization Combined Discontinued 12/28/2018 Zoster Immunization Completed 04/04/2019, 9 Cologuard Discontinued Hepatitis B Immunization Aged Out No longer eligible based on patient's age to complete this topic Immunochemical Fecal Occult Blood Discontinued Meningococcal Immunization (ACWY) Aged Out No longer eligible based on patient's age to complete this topic Rotavirus Immunization Aged Out No lo nger eligible based on patient's age to complete this topic Procedures Procedure Name Priority Date/Time Associated Diagnosis Comments COLONOSCOPY Routine 06/07/2017 from Last 3 Months or Most Recently Relevant to Health Maintenance Results * COLONOSCOPY (06/07/2017) Samy Warren DO PROCEDURE/MINOR SURGICAL ORDERA BLES Final Result from Last 3 Months or Most Recently Relevant to Health Maintenance Insurance MEDICARE [facility] Care Teams Oil Well Fishing Tool Operator Relationship Specialty Start Date End Date Stef Luciano MD [address] [place] [address] PCP - General Family Medicine 12/13/16
[2024-07-07 12:07] LABS: Basophils Percent Auto 0.3 % (0.2-1.2); Eosinophils Absolute Auto 0.4 K/mm3 (0-0.3); Eosinophils Percent Auto 3.5 % (0-4.4); Hematocrit 41.2 % (37.0-47.0); Hemoglobin 12.9 g/dL (12.0-15.0); Immature Granulocyte Absolute 0.03 K/mm3 (0.00-0.031); Immature Granulocyte Percent A 0.3 % (0-0.5); Lymphocytes Absolute Auto 2.21 K/mm3 (0.9-3.2); Lymphocytes Percent Auto 22.1 % (18.3-44.2); Mean Corpuscular HGB Conc 31.3 g/dl (32-36); Mean Corpuscular Hemoglobin 26.6 pg (26-34); Mean Corpuscular Volume 84.9 fl (80-100); Mean Platelet Volume 9.1 fl (7.4-10.4); Monocytes Absolute Auto 0.8 K/mm3 (0.1-0.6); Monocytes Percent Auto 7.7 % (2.6-8.5); Neutrophils Absolute Auto 6.6 K/mm3 (1.3-6.7); Neutrophils Percent Auto 66.1 % (45.5-73.1); Platelet Count Result 385 k/mm3 (150-375); Red Blood Count 4.85 M/mm3 (4.2-5.4); Red Cell Distribution Width 16.3 % (11.5-14.5)
[2024-07-07 12:18] LABS: Alanine Aminotransferase 20 U/L (6-35); Albumin Level 4.2 g/dL (3.5-5.1); Alkaline Phosphatase 56 U/L (38-126); Anion Gap 9 mmol/L (4-12); Aspartate Amino Transferase 27 U/L (14-36); Bilirubin,Total 0.7 mg/dL (0.2-1.3); Blood Urea Nitrogen 26 mg/dL (7-17); Calcium 8.8 mg/dL (8.4-10.2); Carbon Dioxide 24 mmol/L (22-30); Chloride 102 mmol/L (98-107); Estimated Glomerular Filt Rate > 60; Glucose 116 mg/dL (65-110); Sodium 135 mmol/L (137-145)
[2024-07-07 12:29] LABS: Prothrombin Time 13.7 Seconds (11.1-14.7); Troponin I < 0.012 ng/mL (0.000-0.034)
[2024-07-07 12:30] LABS: Partial Thromboplastin Time 29.8 Seconds (22.3-36.8)
--- OUTSIDE RECORDS SUMMARY | 2024-07-07 13:45 | XMS_ITS | Clinical Summary ---
Author Organization [facility] Address [address] [place] [address] Care Team Providers Care Pai Gow Manager Name Role Phone Unavailable Primary Care Provider Unavailabl e Source Comments [facility],non-owned Affiliates and Associated Physician Practices is amultiple site organization consisting of ambulatory clinics and hospital sitesin [place], [place], [place] and [place]. This disclosure is being madepursuant to the Care Everywhere program and may not contain all information available regarding this patient. Last updated 17.[facility] Social History Tobacco Use Types Packs/Day Years [...]
--- OUTSIDE RECORDS SUMMARY | 2024-07-07 13:45 | XMS_ITS | Clinical Summary ---
Author Organization [facility] Address [address] [place] [address] Care Team Providers Care Eligibility Specialist Name Role Phone Stef Luciano MD Primary Care Provider Josef Gore MD Unavailable [phone] Flory Martino COMPLIANCE FIELD TECHNICIAN Unavailable [phone] Carol Dunbar MD Unavailable [phone] Allergies Active Allergy Reactions Criticality Noted Date [...] Other (See comments) Medium 10/07/2021 Back Pain Nnrqnlt-Hqm-Mbg Reductase Inhibitors Muscle pain Medium Hydrocodone-Acetaminophe n [...] Information Patient not taking.Reported on 07/07/2024 vit C,Z-Pn-ucnih-l utein-zeaxan 250-90-40-1 mg capsule Take by mouth [...] (06/29/2024): Added automatically from request for surgery [id number] Lymphedema 11/08/2021 Post-nasal drainage 07/05/2021 Hypertrophy of both inferior nasal turbinates Pharyngoesophageal dysphagia 05/24/2021 Sensorineural hearing loss ( SNHL) of left ear with restricted hearing of right ear 12/18/2020 Personal history of radiation therapy 09/06/2020 Dry skin 06/24/2020 Malignant neoplasm of breast 02/05/2020 Tear of left gluteus medius tendon 02/26/2019 Overview (02/26/2019): Added automatically from request for surgery [id number] Paroxysmal atrial fibrillation 12/10/2018 Chest pain 12/10/2018 Increased frequency of urination 11/15/2018 Overview (06/29/2024): Frequency of micturition;Recorded Elsewhere: No Location: [facility] Source: EHR Chronic: N Practice ID: [id number] Billable Time: 10:45:00 AM Disorder of breast 04/30/2018 Overview (06/29/2024): Disorder of breast, unspecified;Recorded Elsewhere: No Location: [facility] Source: EHR Chronic: N Practice ID: [id number] Billable Time: 10:30:00 AM Dysuria 04/03/2018 Overview (06/29/2024): Dysuria;Recorded Elsewhere: No Location: [facility] Source: EHR Chronic: N Practice ID: [id number] Billable Time: 10:45:00 AM Arthralgia of ankle 05/28/2017 Osteopenia 03/09/2017 Osteopenia 03/09/2017 Fracture with nonunion 02/27/2017 Atrial fibrillation 08/01/2016 Left shoulder pain 07/31/2016 History of artificial joint 07/31/2016 Shortness of breath 02/03/2016 Aortic root dilatation 09/02/2015 Fatigue 12/29/2014 Angina pectoris 12/29/2014 Menopause present 09/09/2014 Microscopic hematuria 09/09/2014 Overview (06/29/2024): MICROSCOPIC HEMATURIA;Recorded Elsewhere: No Location: [facility] Source: EHR Chronic: N Practice ID: [id number] [...] pain, other specified site;Recorded Elsewhere: No Location: [facility] Source: EHR Chronic: N Practice ID: [id number] Billable Time: 05:00:00 PM Atrophic vulva 10/02/2011 Overview (06/29/2024): Atrophy of vulva;Recorded Elsewhere: No Location: [facility] Source: EHR Chronic: Y Practice ID: [id number] Billable Time: 10:00:00 AM Cough 08/23/2011 Overview (06/29/2024): Note: chronic Dyslipidemia 08/23/2011 Gastro-esophageal reflux disease without esophag itis 08/23/2011 Midline cystocele 07/27/2011 Overview (06/29/2024): Cystocele Without Prolapse;Recorded Elsewhere: No Location: [facility] Source: EHR Chronic: N Practice ID: [id number] [...] Description 07/07/2024 9:15 AM CDT Office Visit [facility] at [address] [address] Mimi De La Paz NP Syncope, unspecified syncope type (Primary Dx); Dizziness; Acute left ankle pain 06/29/2024 10:15 AM CDT Office Visit [facility] at [address] [address] Tami Clifton PA Lower respiratory infection (Primary Dx) 06/25/2024 10:45 AM CDT Office Visit [facility] Vascular at [address] [place] [address] Jesenia Suarez PA Asymptomatic varicose veins (Primary Dx); Atrial fibrillation, unspecified type (HCC); Essential hypertension 04/08/2024 Telephone [facility] Oncology [address] [place] [address] [address] [place] [address] Melinda Villela RN from Last [...] on file Legal Sex Female 2:24 AM DECAL DECORATOR Gender Identity Not on file Sexual Orientation [...] history exists Medical Devices Implanted Type Area Intravenous Therapy Nurse Device Identifier Shelf Expiration Date Model / Serial / Lot [employer] [id number] Swivelock C Fibertak Tigertail 4.75mm 22mm 2 Load 2 Wilder Suture - S00 - [id number] Implanted:Qty: 1 on 05/01/2019 by Radha Evans MD at [facility] [place] Left: Buttocks [employer] 03/01/2021 AR-2324BCT -2 / 00 / [id number] [employer] [id number] Swivelock C Fibertak Tigertail 4.75mm 22mm 2 Load 2 Wilder Suture - S00 - [id number] Implanted:Qty: 1 on 05/01/2019 by Radha Evans MD at [facility] Left: Buttocks [employer] 03/01/2021 AR-2324BCT -2 / / [id number] [employer] Ar-2324bcc Swivelock C 4.75mm 19.1mm Closed Eyelet Vent Wilder Suture - S00 - [id number] Implanted:Qty: 1 on 05/01/2019 by Radha Evans MD at [facility] Left: Buttocks [employer] 12/30/2020 AR-2324BCC / 00 / [id number] [employer] Ar-2324bcc Swivelock C 4.75mm 19.1mm Closed Eyelet Vent Wilder Suture - S00 - [id number] Implanted:Qty: 1 on 05/01/2019 by Radha Evans MD at [facility] Left: Buttocks [employer] 01/30/2021 AR-2324BCC / 00 / [id number] Procedures Procedure Name Priority Date/Time Associated Diagnosis Comments SCREENING MAMMOGRAM BILATERAL W KAUSHIK Schedule Routine, Read Routine (OP Routine) 03/03/2024 10:08 AM DECAL DECORATOR Screening mammogram, encounter for DEXA AXIAL SKELETON [...] Mammogram Bilateral W Kaushik (03/03/2024 10:08 AM DECAL DECORATOR) Anatomical Region Laterality Modality Breast Bilateral Mammography Impressions 03/03/2024 11:58 AM DECAL DECORATOR BI-RADS ATLAS category (overall): 2 - Benign There is no mammographic evidence of malignancy. A 1 year screening mammogram is recommended. The patient has been or will be contacted. We recommend annual screening mammography for women at average risk of breast cancer beginning at age 40, based on guidelines of the [place] [employer] (ACR Practice Parameter for the Performance of Screening and Diagnostic Mammography) and [place] [employer]. For women with and elevated risk of breast cancer, please refer to the ACR Practice Parameter for specific screening recommendations. The patient will be entered into a reminder system with a target due date of 1 year for her next screening exam. Narrative 03/03/2024 11:58 AM DECAL DECORATOR Screening Mammogram Bilateral W Kaushik: 03/03/24 The [...] of: osteoporosis screening, osteoporosis screening post menopausal Intravenous Therapy Nurse/Model: [employer] A (S/N [id number]) CLINICAL INFORMATION: Current height: 64.5 inches Maximum [...] Real Purvis M.D. MF: BERKLEY Report ID: [id number] Reading Location: [address] Note Real Purvis MD - 11/19/2023 EXAM DESCRIPTION: DEXA AXIAL SKELETON BONE DENSITY 1 OR MORE SITES REASON FOR STUDY: 78 y/o year old F with given history of:osteoporosis screening, osteoporosis screening post menopausal Intravenous Therapy Nurse/Model: [employer] A (S/N [id number]) CLINICAL INFORMATION: Current height: 64.5 inches Maximum [...] Real Purvis M.D. MF: BERKLEY Report ID: [id number] Reading Location: [place] [address] Flory Martino NP IMG DXA PROCEDURES F inal Result from Last 3 Months or Most Recently Relevant to Health Maintenance Insurance MEDICARE MEDICARE BLUE [employer]OSS MEDICARE SUPPLEMENT MEDICARE [facility] MEDICARE SUPPLEMENT MEDICARE Care Teams Eligibility Specialist Relationship Specialty Start Date End Date Stef Luciano MD [address] [place] [address] PCP - General 06/30/16 Josef Gore MD [address] [place] [address] Surgeon Surgery 03/09/20 Flory Martino NP [address] [place], [place] [id number] Nurse Practitioner Medical Oncology 01/11/22 Carol Dunbar MD [address] [place] [id number] Radiation Oncologist Radiation Oncology 09/10/23
--- OUTSIDE RECORDS SUMMARY | 2024-07-07 13:45 | XMS_ITS | Encounter Summary ---
Author Organization [facility] Address [address] [place] [address] Care Team Providers Care Coroner Transport Technician Name Role Phone Unavailable Primary Care Provider Unavailabl e Encounter Details Date Type Department Care Team (Late st Contact Info) Description 11/18/[address] [facility] DermPath Lab [address] [facility], [place] [id number] Paula Roe DO [address] [facility] [address] [place] [address] Social History Tobacco Use Types Packs/Day Years [...] AM CDT) Case Report Dermatopathology Report Case: [id number] Authorizing Provider: Paula Roe DO Collected: 11/17/2019 12:00 AM Ordering Location: [facility] DermPath Lab Received: 11/18/2019 01:10 PM [...] SUGGESTIVE OF EXCORIATION (L98.499) 0 2:07 PM [facility] DERMATOPATHOLOGY LABORATORY Clinical History A-B: Pig AK R/O other. C: Healing scar R/O NMSC. 0 2:07 PM [facility] DERMATOPATHOLOG[facility] LABORATORY Gross Description Specimen A: Received is one formalin filled container labeled with the patient's name and designated left lat LE superior. The specimen consists of a shave measuring 9i1f2fu. Jar 0. Specimen B: Received is one formalin filled container labeled with the patient's name and designated left lat LE inferior. The specimen consists of a shave measuring 2o7q1sz. Jar 0. Specimen C: Received is one formalin filled container labeled with the patient's name and designated right lat LE. The specimen consists of a shave measuring 5h7m5pj. Jar 0. 0 2:07 PM T DERMATOPATHOLOGY [...] characteristic determined by the Dermatopathology Laboratory at [facility], directed by Dr. Zenon Vuong. These tests need not be, and therefore are not, approved by the [place] Food and Drug Administration. The tests are used for clinical purposes. Billing Codes Specimen Charges Stain Charges 07342 28794 24130 1 1 1 0 2:07 PM CDT [...] LAB - PATHOLOGY/C YTOLOGY ORDERABLES DERMATOPATHOLOGY LABORATORY [facility] - Department of Dermatology [facility]/[address] [phone] documented in this encounter Visit Diagnoses Not on filedocumented in this encounter
--- OUTSIDE RECORDS SUMMARY | 2024-07-07 13:45 | XMS_ITS | Continuity of Care Document ---
Author Organization [facility] Address [address] [place] [address] utive [facility] [address] [place] [address] Phone Care Team Providers Care Sink Cutter Name Role Phone Grant Whaley Unavailable Unavailable Procedures Procedure Date Office/outpatient Visit, [facility] Office/outpatient Visit, [facility] Advance Directives Directive Yes / No Effective Date File Name No Information Encounters Encounter Description Practice Location Reason(s) For Visit Diagnoses Date Provider Providers Copied on Encounter Office/outpat ient Visit, [facility], [address] [place], [place] [address] [address], [place], [place], [id number], [place] tel:[phone] [facility] No Information 0 Krishnasamy Grant. [address], [address], [place]. tel:[phone] Office/outpat ient Visit, [facility], [address] [place] [address] [address], [place], [place], [id number], tel:[phone] [facility] No Information 0 Krishnasamy Grant. [address] [place] [address], [place], [address], [place]. tel:[phone] Family History Family Member Type Diagnosis Age At Onset No Information Payers Payer name Insurance type Covered constitution party ID Authoriza tion(s) No Information Social [...]
--- OUTSIDE RECORDS SUMMARY | 2024-07-07 13:45 | XMS_ITS | Encounter Summary ---
Author Organization [facility] Address [address] [place] [address] Phone Care Team Providers Care Load Manager Name Role Phone Stef Luciano MD Primary Care Provider Josef Gore MD Unavailable [phone] Adrián Barrios MD Unavailable [phone] Carol Dunbar MD Unavailable [phone] Flory Martino NP Unavailable + [phone] Carol Dunbar MD Unavailable [phone] Encounter Details Date Type Department Care Team (Late st Contact Info) Description 11/01/2017 Telephone [facility] [address] [facility] Advanced Medicine 8th [place] [address] [place] [address] Fran Mistry MD PhD [address] [facility] [address] [place] [address] Social History Tobacco Use Types Packs/Day Years Used Date Smoking Tobacco: Never Smokeless Tobacco: Never Alcohol Use Standard Drinks/Week Comments No 0 (1 standard drink = 0.6 oz pur e alcohol) Comments Unknown Sex and Gender Information Value Date Recorded Sex Assigned at Not on file 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 Gender Identity Not on file Sexual Orientation Not on file documented as of this encounter Plan of Treatment Not on file documented as of this encounter Visit Diagnoses Not on filedocumented in this encounter Care Teams Load Manager Relationship Specialty Start Date End Date Stef Luciano MD [address] [place] [address] PCP - General 06/30/16 Josef Gore MD [address] [place] [address]809 Surgeon Surgery 03/09/20 Adrián Barrios MD [address] [place] [address] [id number] Medical Oncologist/Honeycomb Blanket Maker Hematology and Oncology 03/09/20 01/10/22 Carol Dunbar MD [address] [place] [address] Radiation Oncologist Radiation Oncology 09/05/20 Flory Woodson NP [address] [place] [address] [id number] Nurse Practitioner Medical Oncology 01/11/22 Carol Dunbar MD [address] [place] [address] [id number] Radiation Oncologist Radiation Oncology 09/10/23 documented as of this encounter
--- OUTSIDE RECORDS SUMMARY | 2024-07-07 13:45 | XMS_ITS | Encounter Summary ---
Author Organization [facility] Address [address] [place] [address] Care Team Providers Care House Steward/Stewardess Name Role Phone Stef Luciano MD Primary Care Provider [phone] Yenni Norman MD Unavailable [phone] Adrián Barrios MD Unavailable [phone] Reason for Visit * Reason Onset Date Comments Preprocedure Call 12/19/2023 [place] pre-o p call Encounter Details Date Type Department Care Team (Late st Contact Info) Description 12/19/2023 Pre-Procedure Call [facility] Pre-Admission Testing [address] [place], [place] [id number] Harris Lopez MD [address] [facility]. [facility] [address] [place], [place] [phone] Preprocedure Call ([place] pre-op call) Anesthesia Record Procedure Summary Procedure [...] drink = 0.6 oz pur e alcohol) [facility] Utilities Answer Date Recorded In the past 12 months has [employer], [employer], oil, or water [employer] threatened to shut off services in your [...] often do you attend chur ch or gnosticist services? More than 4 times per year 03/22/2023 Do you belong to any clubs o r organizations such as evangelical groups, unions, fraternal or athletic groups, or [...] care, and heating? Not very hard 03/22/2023 [facility] of Occupat ional Health - Occupational Stress [...] place to sleep or slept in a mcfp (including now)? No 03/22/2023 Comments No Sex [...] stress - 03/23/23 Do you see a clothing presser? Who is it? Dr Norman Contacted patient regarding pre-op evaluation phone call. Medical history and medications reviewed.Pre-op instructions were discussed. Instructed patient to hold multivitamin and preservision 7 daysprior to surgery. Hold eliquis the night before surgery and the morning of surgery. Hold calcium and spironolactone the morning of surgery. Patient voiced understanding and questions were answered. Emailed instructions to [email or web address]. Had outpatient bloodwork on 12/18/23. documented in this encounter OR Notes * OR PreOp - Radha Carter, BRAKE REPAIRER - 12/19/2023 2:39 PM CDT Chart reviewed. Per phone interview, patient states she would have mild SOB with 2 FOS but denies any CP. Denies recent changes in activity tolerance in past 6 months. Patient sees clothing presser Dr. Norman and previous cardiac testing copied. ECG 08/30/23 ECTOPIC ATRIAL RHYTHM MODERATE INTRAVENTRICULAR CONDUCTION DELAY Poor R wave progression cosistent with lead placement, COPD, left ventricular hypertrophy or previous [place] MINIMAL VOLTAGE CRITERIA FOR LVH, CONSIDER NORMAL [...] CDT Office Visit [facility] [address] [place] [address] Yenni Norman MD [address] [facility]. [address] [place], [place] [phone] documented as of this encounter Goals Goal Patient Goal Type Associated Problems Recent Progress Patient-Stated? Author Consistently take medications as Prescribed General No Kai Jewell, RN Patient will return to prior living situation and remain independent in ADLs upon discharge from hospital Lifestyle No Lynette Burton RN documented as of this encounter Visit Diagnoses Not on filedocumented in this encounter Care Teams House Steward/Stewardess Relationship Specialty Start Date End Date Stef Luciano MD [address] [facility] [address] [place] [address] PCP - General FAMILY PRACTICE 06/03/20 Yenni Norman MD [address] [address] Consulting Physician CARDIOVASCULAR DISEASE 07/19/20 Adrián Barrios MD [address] [place] [address], [address] [place], [place] [phone] Referring Physician MEDICAL ONCOLOGY 02/05/20 documented as of this encounter
--- OUTSIDE RECORDS SUMMARY | 2024-07-07 13:45 | XMS_ITS | Clinical Summary ---
Author Organization [facility] Address [address] [place] [address] Care Team Providers Care Composing Room Machinist Apprentice Name Role Phone Stef Luciano MD Primary Care Provider [phone] Yenni Norman MD Unavailable [phone] Adrián Barrios MD Unavailable [phone] Allergies Active Allergy Reactions Criticality Noted [...] (01/25/2022): Added automatically from request for surgery [id number] Lymphedema 11/08/2021 Atrial fibrillation ([facility]) 06/13/2021 Malignant neoplasm of breast ([facility]) 0 12/21/2020 Dry skin 06/24/2020 Malignant neoplasm of overla pping sites of right breast in female, estrogen receptor positive ([facility]) 02/05/2020 Tear of left gluteus medius tendon 02/26/2019 Overview (09/07/2020): Added automatically from request for surgery [id number] Arthralgia of ankle 05/28/2017 Osteopenia 03/09/2017 Fracture with nonunion 02/27/2017 History of artificial joint 07/31/2016 Paroxysmal atrial fibrillation ([facility]) 04/02/2016 Assessment & Plan (01/14/2021 3:28 PM [...] Date Type Department Care Team Description 07/07/2024 Telephone [facility], [address] [address] Venessa Potter RN Follow Up Call 06/27/2024 11:00 AM CDT Office Visit [facility], [address] [address] Sara Go PA-C Follow Up (6 months); [...] drink = 0.6 oz pur e alcohol) [facility] Utilities Answer Date Recorded In the past 12 months has e [employer], gas, oil, or water [employer] threatened to shut off services in your [...] How often do you attend chur or restoration services? More than 4 times per year 03/22/2023 Do you belong to any clubs o r organizations such as judaism groups, unions, fraternal or athletic groups, or [...] care, and heating? Not very hard 03/22/2023 [facility] of Occupat ional Health - Occupational Stress [...] place to sleep or slept in a intermediate (including now)? No 03/22/2023 Comments No Sex [...] 36.4 C (97.6 F) 02/12/2024 9:13 AM PHYSICIAN ASSISTANT Respiratory Rate 18 02/12/2024 9:13 AM PHYSICIAN ASSISTANT Oxygen Saturation 96% 06/27/2024 10:48 AM CDT [...] CDT Office Visit [facility], [address] [place], [place] [id number] Yenni Norman MD Three [facility]. [address] [place] [address] Health Maintenance Due Date Last Done Comments Hepatitis C 1963 DTaP, Tdap and Td Vaccines (1 - Tdap) 1964 Annual Medicare Wellness Visit 2011 Pneumococcal Vaccine: 65+ Years (2 of 2 - PCV) 12/29/2019 12/28/2018 RSV Immunization or 60+ Years (1 - 1-dose 75+ series) 2021 COVID-19 Vaccine ( - season) 2023 01/04/2021, 06/24/2020, 05/27/2020, Additional history exists ASCVD LDL 03/22/2024 03/22/2023, 05/0 10/2022, 10/05/2020 PHQ-2 (Physician [place]) 04/02/2024 Zoster Vaccines Completed 04/04/2019, 01/23/2019 Dexa [...] discharge from hospital Lifestyle No Lynette Burton, MATEO Medical Devices Implanted Type Area Clinical Informatics Specialist Device Identifier Shelf Expiration Date Model / Serial / Lot Mary Closure Device- [id number] Implanted:Qty : 1 on 12/25/2023 by Harris Lopez MD Closure Device [employer] [id number] 05/27/2026 / / [id number] Procedures Procedure Name Priority Date/Time Associated Diagnosis Comments LIPID PANEL STAT 03/22/2023 4:19 PM PHYSICIAN ASSISTANT from Last 3 Months or Most Recently Relevant to Health Maintenance Results * (ABNORMAL) LIPID PANEL (03/22/2023 4:19 PM PHYSICIAN ASSISTANT) CHOLESTEROL 165 <200 MG/DL 03/22/2023 9:42 PM PHYSICIAN ASSISTANT [facility] TRIGLYCERIDES 176(H) <150 MG/DL 03/22/2023 9:42 PM PHYSICIAN ASSISTANT [facility] HDL 41 >40.0 MG/DL 03/22/2023 9:42 PM PHYSICIAN ASSISTANT [facility] LDL (CALCULATED) 89 <100 MG/DL 03/22/2023 9:42 PM PHYSICIAN ASSISTANT [facility] NON HDL CHOLESTEROL 124 <130 MG/DL 03/22/2023 9:42 PM [facility] CHOL/HDL RATIO 4.0 0.0 - 4.5 03/22/2023 9:42 PM PHYSICIAN ASSISTANT [facility] VLDL CALCULATION 35 5 - 55 MG/DL 03/22/2023 9:42 PM PHYSICIAN ASSISTANT [facility] LIPID INTERPRETATION 03/22/2023 9:42 PM [facility] Comment: NIH CONCENSUS REPORT RECOMMENDATIONS: ADULT CHILD LOW RISK: CHOLESTEROL <200 <170 TRIGLYCERIDE <150 --- HDL >=60 --- LDL <100 <110 BORDERLINE: CHOLESTEROL 200-239 170-199 TRIGLYCERIDE 150-199 --- HDL 40-59 --- LDL 100-159 110-129 HIGH RISK: CHOLESTEROL >=240 >=200 TRIGLYCERIDE >=200 --- HDL <40 --- LDL >=160 >=130 03/22/2023 4:19 PM PHYSICIAN ASSISTANT us Olivia Cantu MD LABORATORY Final Result [facility] [address] [place] [address], from Last 3 Months or Most Recently Relevant to Health Maintenance Insurance MEDICARE [facility] Advance Directives Documents on File Type Date Recorded Patient Backhaul Driver Expl anation Legal Documents 11/14/2021 9:11 AM [...] 12:13 PM 06/16/2021 12:41 PM Care Teams Composing Room Machinist Apprentice Relationship Specialty Start Date End Date Stef Luciano MD [address] [facility] [address] [place] [address] PCP - General FAMILY PRACTICE 06/03/20 Yenni Norman MD [address] [address] Consulting Physician CARDIOVASCULAR DISEASE 07/19/20 Adrián Barrios MD [address] [place] [address], [address] [place], [place] [address] Referring Physician MEDICAL ONCOLOGY 02/05/20
--- OUTSIDE RECORDS SUMMARY | 2024-07-07 13:46 | XMS_ITS ---
Author Organization [facility] Address [address] [place] [address] Care Team Providers Care Finisher Brush Name Role Phone Stef Luciano MD Primary Care Provider Josef Gore MD Unavailable [phone] Flory Martino FINGER COBBLER Unavailable [phone] Carol Dunbar MD Unavailable [phone] Active Problems Problem Noted Date Diagnosed Date SI joint arthritis 06/14/2023 Acute recurrent maxillary sinusitis 07/11/2022 Lumbar facet arthropathy 01/25/2022 Overview (06/29/2024): Added automatically from request for surgery [id number] Lymphedema 11/08/2021 Post-nasal drainage 07/05/2021 Hypertrophy of both inferior nasal turbinates Pharyngoesophageal dysphagia 05/24/2021 Sensorineural hearing loss ( SNHL) of left ear with restricted hearing of right ear 12/18/2020 Personal history of radiation therapy 09/06/2020 Dry skin 06/24/2020 Malignant neoplasm of breast 02/05/2020 Tear of left gluteus medius tendon 02/26/2019 Overview (02/26/2019): Added automatically from request for surgery [id number] Paroxysmal atrial fibrillation 12/10/2018 Chest pain 12/10/2018 Increased frequency of urination 11/15/2018 Overview (06/29/2024): Frequency of micturition;Recorded Elsewhere: No Location: [facility] Source: EHR Chronic: N Practice ID: [id number] Billable Time: 10:45:00 AM Disorder of breast 04/30/2018 Overview (06/29/2024): Disorder of breast, unspecified;Recorded Elsewhere: No Location: [facility] Source: EHR Chronic: N Practice ID: [id number] Billable Time: 10:30:00 AM Dysuria 04/03/2018 Overview (06/29/2024): Dysuria;Recorded Elsewhere: No Location: [facility] Source: EHR Chronic: N Practice ID: [id number] Billable Time: 10:45:00 AM Arthralgia of ankle 05/28/2017 Osteopenia 03/09/2017 Osteopenia 03/09/2017 Fracture with nonunion 02/27/2017 Atrial fibrillation 08/01/2016 Left shoulder pain 07/31/2016 History of artificial joint 07/31/2016 Shortness of breath 02/03/2016 Aortic root dilatation 09/02/2015 Fatigue 12/29/2014 Angina pectoris 12/29/2014 Menopause present 09/09/2014 Microscopic hematuria 09/09/2014 Overview (06/29/2024): MICROSCOPIC HEMATURIA;Recorded Elsewhere: No Location: [facility] Source: EHR Chronic: N Practice ID: [id number] [...] pain, other specified site;Recorded Elsewhere: No Location: [facility] Source: EHR Chronic: N Practice ID: [id number] Billable Time: 05:00:00 PM Atrophic vulva 10/02/2011 Overview (06/29/2024): Atrophy of vulva;Recorded Elsewhere: No Location: [facility] Source: EHR Chronic: Y Practice ID: [id number] Billable Time: 10:00:00 AM Cough 08/23/2011 Overview (06/29/2024): Note: chronic Dyslipidemia 08/23/2011 Gastro-esophageal reflux disease without esophag itis 08/23/2011 Midline cystocele 07/27/2011 Overview (06/29/2024): Cystocele Without Prolapse;Recorded Elsewhere: No Location: [facility] Source: EHR Chronic: N Practice ID: [id number] [...]
--- OUTSIDE RECORDS SUMMARY | 2024-07-07 13:46 | XMS_ITS | Encounter Summary ---
Author Organization [facility] Address [address] [place] [address] Care Team Providers Care Felt Cutting Machine Operator Name Role Phone Stef Luciano MD Primary Care Provider Josef Gore MD Unavailable [phone] Flory Martino NP Unavailable [phone] Carol Dunbar MD Unavailable [phone] Reason for Visit * Reason Comments Dizziness Patient here for c/o dizziness yesterday possible due to sinus infection. Fall Patient c/o fall and left foot pain. Difficulty walking and pain and swelling. Encounter Details Date Type Department Care Team (Late st Contact Info) Description 07/07/2024 9:15 AM CDT Office Visit [facility] at [address] [address] Mimi De La Paz NP [address] [place] [address] [address] [place], [place] [id number] Syncope, unspecified syncope type (Primary Dx); Dizziness; [...] on file Legal Sex Female 2:24 AM LOBBY CONCIERGE Gender Identity Not on file Sexual Orientation [...] Progress Notes * Mimi De La Paz, DIGESTION OPERATOR - 07/07/2024 9:15 AM CDT Images from [...] and weakness. Patient has not taken anything nveo-wcn-mscjcno. Patient does have a history of AFib. [...] not ill-appearing. HENT: Head: Normocephalic. Mouth/Throat: Lips: [employer]. Eyes: Extraocular Movements: Right eye: Normal extraocular [...] office note has been partially dictated using Loaded Pocket software, and as a result portions of the record may have been created with this software. Occasional wrong-word or 'pogmp-k-mufm' substitutions may have occurred due to the [...] 07/02/2024 added in this encounter Care Teams Felt Cutting Machine Operator Relationship Specialty Start Date End Date Stef Luciano MD [address] [place] [address] PCP - General 06/30/16 Josef Gore MD [address] [facility] [address] [place], [place] [id number] Surgeon Surgery 03/09/20 Flory Martino NP [address] [facility] [address] [address] Nurse Practitioner Medical Oncology 01/11/22 Carol Dunbar MD [address] [place] [address] [place] [address] Radiation Oncologist Radiation Oncology 09/10/23 documented as of this encounter
--- OUTSIDE RECORDS SUMMARY | 2024-07-07 13:46 | XMS_ITS | Referral Summary ---
Author Organization [facility] Address [address] [place] [address] Care Team Providers Care Client Support Coordinator Name Role Phone Stef Luciano MD Primary Care Provider Josef Gore MD Unavailable [phone] Flory Martino ROLL OUT MANAGER Unavailable + [phone] Carol Dunbar MD Unavailable [phone] Encounters Date Type Department Care Team Description 07/07/2024 9:15 AM CDT Office Visit [facility] at [address] [address] Mimi De La Paz NP Syncope, unspecified syncope type (Primary Dx); Dizziness; Acute left ankle pain 06/29/2024 10:15 AM CDT Office Visit [facility] at [address] [address] Tami Clifton PA Lower respiratory infection (Primary Dx) 06/25/2024 10:45 AM CDT Office Visit [facility] Vascular at [address] [place] [address] Jesenia Suarez PA Asymptomatic varicose veins (Primary Dx); Atrial fibrillation, unspecified type (HCC); Essential hypertension 04/08/[address] [facility] [address] [place] [phone] Melinda Villela, RN from Last 3 Months [...] Other (See comments) Medium 10/07/2021 Back Pain Lbtdstf-Bls-Ktn Reductase Inhibitors Muscle pain Medium Hydrocodone-Acetaminophe n [...] Information Patient not taking.Reported on 07/07/2024 vit C,G-Oy-etcwr-l utein-zeaxan 250-90-40-1 mg capsule Take by mouth [...] (06/29/2024): Added automatically from request for surgery [id number] Lymphedema 11/08/2021 Post-nasal drainage 07/05/2021 Hypertrophy of both inferior nasal turbinates Pharyngoesophageal dysphagia 05/24/2021 Sensorineural hearing loss ( SNHL) of left ear with restricted hearing of right ear 12/18/2020 Personal history of radiation therapy 09/06/2020 Dry skin 06/24/2020 Malignant neoplasm of breast 02/05/2020 Tear of left gluteus medius tendon 02/26/2019 Overview (02/26/2019): Added automatically from request for surgery [id number] Paroxysmal atrial fibrillation 12/10/2018 Chest pain 12/10/2018 Increased frequency of urination 11/15/2018 Overview (06/29/2024): Frequency of micturition;Recorded Elsewhere: No Location: [facility] Source: EHR Chronic: N Practice ID: [id number] Billable Time: 10:45:00 AM Disorder of breast 04/30/2018 Overview (06/29/2024): Disorder of breast, unspecified;Recorded Elsewhere: No Location: [facility] Source: EHR Chronic: N Practice ID: [id number] Billable Time: 10:30:00 AM Dysuria 04/03/2018 Overview (06/29/2024): Dysuria;Recorded Elsewhere: No Location: [facility] Source: EHR Chronic: N Practice ID: [id number] Billable Time: 10:45:00 AM Arthralgia of ankle 05/28/2017 Osteopenia 03/09/2017 Osteopenia 03/09/2017 Fracture with nonunion 02/27/2017 Atrial fibrillation 08/01/2016 Left shoulder pain 07/31/2016 History of artificial joint 07/31/2016 Shortness of breath 02/03/2016 Aortic root dilatation 09/02/2015 Fatigue 12/29/2014 Angina pectoris 12/29/2014 Menopause present 09/09/2014 Microscopic hematuria 09/09/2014 Overview (06/29/2024): MICROSCOPIC HEMATURIA;Recorded Elsewhere: No Location: [facility] Source: EHR Chronic: N Practice ID: [id number] [...] pain, other specified site;Recorded Elsewhere: No Location: [facility] Source: EHR Chronic: N Practice ID: [id number] Billable Time: 05:00:00 PM Atrophic vulva 10/02/2011 Overview (06/29/2024): Atrophy of vulva;Recorded Elsewhere: No Location: [facility] Source: EHR Chronic: Y Practice ID: [id number] Billable Time: 10:00:00 AM Cough 08/23/2011 Overview (06/29/2024): Note: chronic Dyslipidemia 08/23/2011 Gastro-esophageal reflux disease without esophag itis 08/23/2011 Midline cystocele 07/27/2011 Overview (06/29/2024): Cystocele Without Prolapse;Recorded Elsewhere: No Location: [facility] Source: EHR Chronic: N Practice ID: [id number] [...] on file Legal Sex Female 2:24 AM WELFARE AIDE Gender Identity Not on file Sexual Orientation [...] on file Medical Devices Implanted Type Area Conference Services Director Device Identifier Shelf Expiration Date Model / Serial / Lot [employer] [id number] Swivelock C Fibertak Tigertail 4.75mm 22mm 2 Load 2 Alba Suture - S00 - [id number] Implanted:Qty: 1 on 05/01/2019 by Radha Evans MD at [facility] Left: Buttocks [employer] 03/01/2021 AR-2324BCT -2 / / [id number] [employer] [id number] Swivelock C Fibertak Tigertail 4.75mm 22mm 2 Load 2 Alba Suture - S00 - [id number] Implanted:Qty: 1 on 05/01/2019 by Radha Evans MD at [facility] Left: Buttocks [employer] 03/01/2021 AR-2324BCT -2 / / [id number] [employer] Ar-2324bcc Swivelock C 4.75mm 19.1mm Closed Eyelet Vent Alba Suture - S00 - [id number] Implanted:Qty: 1 on 05/01/2019 by Radha Evans MD at [facility] Left: Buttocks [employer] 12/30/2020 AR-2324BCC / 00 / [id number] [employer] Ar-2324bcc Swivelock C 4.75mm 19.1mm Closed Eyelet Vent Alba Suture - S00 - [id number] Implanted:Qty: 1 on 05/01/2019 by Radha Evans MD at [facility] Left: Buttocks [employer] 01/30/2021 AR-2324BCC / 00 / [id number] Procedures Procedure Name Priority Date/Time Associated Diagnosis Comments SCREENING MAMMOGRAM BILATERAL W KAUSHIK Schedule Routine, Read Routine (OP Routine) 03/03/2024 10:08 AM WELFARE AIDE Screening mammogram, encounter for DEXA AXIAL SKELETON [...] Mammogram Bilateral W Kaushik (03/03/2024 10:08 AM WELFARE AIDE) Anatomical Region Laterality Modality Breast Bilateral Mammography Impressions 03/03/2024 11:58 AM WELFARE AIDE BI-RADS ATLAS category (overall): 2 - Benign There is no mammographic evidence of malignancy. A 1 year screening mammogram is recommended. The patient has been or will be contacted. We recommend annual screening mammography for women at average risk of breast cancer beginning at age 40, based on guidelines of the [employer] (ACR Practice Parameter for the Performance of Screening and Diagnostic Mammography) and [place] [employer]. For women with and elevated risk of breast cancer, please refer to the ACR Practice Parameter for specific screening recommendations. The patient will be entered into a reminder system with a target due date of 1 year for her next screening exam. Narrative 03/03/2024 11:58 AM WELFARE AIDE Screening Mammogram Bilateral W Kaushik: 03/03/24 The [...] of: osteoporosis screening, osteoporosis screening post menopausal Conference Services Director/Model: behaview A (S/N [id number]) CLINICAL INFORMATION: Current height: 64.5 inches Maximum [...] Real Purvis M.D. MF: [place] Report ID: [id number] Reading Location: [address] Note Real Purvis MD - 11/19/2023 EXAM DESCRIPTION: DEXA AXIAL SKELETON BONE DENSITY 1 OR MORE SITES REASON FOR STUDY: 78 y/o year old F with given history of:osteoporosis screening, osteoporosis screening post menopausal Conference Services Director/Model: behaview A (S/N [id number]) CLINICAL INFORMATION: Current height: 64.5 inches Maximum [...] Real Purvis M.D. MF: B[place]LEY Report ID: [id number] Reading Location: [place] [address] Flory Martino NP IMG DXA PROCEDURES F inal Result from Last 3 Months or Most Recently Relevant to Health Maintenance Insurance MEDICARE MEDICARE [facility] MEDICARE SUPPLEMENT MEDICARE [facility] MEDICARE SUPPLEMENT MEDICARE Care Teams Client Support Coordinator Relationship Specialty Start Date End Date Stef Luciano MD [address] [place] [address] PCP - General 06/30/16 Josef Gore MD 1414 [facility] [address] [place], [place] [address] Surgeon Surgery 03/09/20 Flory Martino NP 1418 [facility] 180 [facility] 2 [place], [place] [phone] Nurse Practitioner Medical Oncology 01/11/22 Carol Dunbar MD 1418 [facility] [address] [place] [address] Radiation Oncologist Radiation Oncology 09/10/23
--- OUTSIDE RECORDS SUMMARY | 2024-07-07 13:46 | XMS_ITS | Encounter Summary ---
Author Organization [facility] Address [address] [place] [address] Care Team Providers Care Geophysical Prospector Name Role Phone Stef Luciano MD Primary Care Provider [phone] Yenni Norman MD Unavailable [phone] Adrián Barrios MD Unavailable [phone] Encounter Details Date Type Department Care Team (Late st Contact Info) Description 10/06/2020 Abstract [facility] [address] Betina Scott MA Social History Tobacco Use [...] CDT Office Visit [facility], [address] [place], [place] [id number] Yenni Norman MD Three [facility]. [address] [place], [place] [id number] documented as of this encounter Procedures Procedure Name Priority Date/Time Associated Diagnosis Comments LIPID PANEL Routine 10/05/2020 documented in this encounter Results * LIPID PANEL (10/05/2020) CHOLESTEROL 181 HDL 56 TRIGLYCERIDES 92 LDL (CALCULATED) 108 10/05/2020 us Doc [facility] LABORATORY Final Result documented in this encounter Visit Diagnoses Not on filedocumented in this encounter Care Teams Geophysical Prospector Relationship Specialty Start Date End Date Stef Luciano MD [address] [facility] [address] [place] [address] PCP - General FAMILY PRACTICE 06/03/20 Yenni Norman MD Three [facility]. [address] [place] [address] Consulting Physician CARDIOVASCULAR DISEASE 07/19/20 Adrián Barrios MD [address] [place] [address], [address] [place], [place] [id number] Referring Physician MEDICAL ONCOLOGY 02/05/20 documented as of this encounter
--- OUTSIDE RECORDS SUMMARY | 2024-07-07 13:46 | XMS_ITS | Encounter Summary ---
Author Organization [facility] Address [address] [place] [address] Care Team Providers Care Regional Construction Manager Name Role Phone Stef Luciano MD Primary Care Provider [phone] Yenni Norman MD Unavailable [phone] Adrián Barrios MD Unavailable [phone] Reason for Visit * Reason Onset Date Comments Follow Up Call 07/07/2024 Encounter Details Date Type Department Care Team (Late st Contact Info) Description 07/07/[address] [address] Venessa Potter, [place] [address] Follow Up Call Social History Tobacco Use Types Packs/Day Years Used Date Smoking Tobacco: Never Smokeless Tobacco: Never Alcohol Use Standard Drinks/Week Comments Never 0 (1 standard drink = 0.6 oz pur e alcohol) [facility] Utilities Answer Date Recorded In the past 12 months has [facility] [employer], gas, oil, or water [employer] threatened to shut off services in your [...] How often do you attend chur or denominational services? More than 4 times per year 03/22/2023 Do you belong to any clubs o r organizations such as mandaen groups, unions, fraternal or athletic groups, or [...] care, and heating? Not very hard 03/22/2023 [facility] of Occupat ional Health - Occupational Stress [...] place to sleep or slept in a chcf (including now)? No 03/22/2023 Comments No Sex [...] documented in this encounter Progress Notes * Venessa Potter RN - 07/07/2024 12:52 PM CDT Pt states she fell yesterday. She thinks she may have blacked out. She states she hit her head. Went to an . But was advised to go the ER. Pt states she is currently in [place] ER to be evaluated. documented in this encounter Plan of Treatment Upcoming Encounters Date Type Department Care Team (Late st Contact Info) Description 07/31/2024 2:15 PM CDT Office Visit [facility], [address] [place], [place] [phone] Yenni Norman MD [facility]. [address] [place] [address] documented as of this encounter Goals Goal Patient Goal Type Associated Problems Recent Progress Patient-Stated? Author Consistently take medications as Prescribed General No Kai Jewell RN Patient will return to prior living situation and remain independent in ADLs upon discharge from hospital Lifestyle No Lynette Burton RN documented as of this encounter Visit Diagnoses Not on filedocumented in this encounter Care Teams Regional Construction Manager Relationship Specialty Start Date End Date Stef Luciano MD [address] [place] [address] PCP - General FAMILY PRACTICE 06/03/20 Yenni Norman MD [facility]. [address] [place] [address] Consulting Physician CARDIOVASCULAR DISEASE 07/19/20 Adrián Barrios MD [address] [place] [address], [address] [place] [address] Referring Physician MEDICAL ONCOLOGY 02/05/20 documented as of this encounter
--- OUTSIDE RECORDS SUMMARY | 2024-07-07 13:46 | XMS_ITS | Clinical Summary ---
Author Organization [facility] Address [address] [facility], [address] [address] Phone Care Team Providers Care Bullard Machine Operator Name Role Phone Stef Luciano [...] Recently Relevant to Health Maintenance Insurance MEDICARE [facility] Care Teams Bullard Machine Operator Relationship Specialty Start Date End Date Stef Luciano MD [address] [place] [address] PCP - General Family Medicine 12/13/16
--- NOTE | 2024-07-07 13:52 | ED_ITS ---
HPI - General Adult General Chief complaint: Syncope Stated complaint: poss syncope, left foot injury Time Seen by Provider: 07/07/24 10:45 History of Present Illness HPI narrative: Patient is a 71-year-old female who presents ER with syncope. Patient had an episode of dizziness yesterday. Today she had episode of dizziness where everything went black. She felt like her foot was numb and she she fell to the ground. She has pain to her left ankle and has swelling and bruising over the lateral malleolus. She has not think that she twisted her ankle 1st causing pain and syncope. Denies palpitations. No chest pain or shortness of breath. Dizziness as she had previously was not accompanied with any in numbness or tingling of the arms or legs. The 1st time seemed positional but today she had been standing for a prolonged period talking to a family member when symptoms occurred.. Related Data Home Medications ?Medication ?Instructions ?Recorded ?Confirmed ?Last Taken ?Type fadsqrcw-rlq-flwfg ac 400 1 tablet PO DAILY 02/17/19 07/02/24 06/26/22 History mcg-calcium carb 500 mg-vit K1 20 mcg tablet (Women's 50 Plus Multivitamin) carboxymethylcellulose sodium 0.5 1 drp EACH EYE QID PRN Dry Eye(S) 09/01/21 07/02/24 06/26/22 History % eye drops in a dropperette (Refresh Plus) ascorbic acid (vitamin C) 2,000 mg 2,000 mg PO DAILY 06/19/22 07/02/24 06/26/22 History tablet,extended release fluticasone propionate 50 1 spray intranasal DAILY PRN 06/19/22 07/02/24 06/26/22 History mcg/actuation nasal Congestion spray,suspension acetaminophen 650 mg 650 mg PO Q6H 03/30/23 07/02/24 Unknown History tablet,extended release albuterol 90 mcg-budesonide 80 2 inh inhalation ONCE 07/02/24 07/02/24 Unknown History mcg/actuation HFA aerosol inhaler Allergies Allergy/AdvReac Type Severity Reaction Status Date / Time esomeprazole Allergy Severe Itching Verified 05/22/24 09:21 hydrocodone (From Vicodin) Allergy Severe Other Verified 05/22/24 09:21 lisinopril Allergy Severe coughing Verified 05/22/24 09:21 prob niacin Allergy Severe Redness of Verified 05/22/24 09:21 Skin omeprazole Allergy Severe ITCHING Verified 05/22/24 09:21 amlodipine Allergy Intermediate lower Verified 05/22/24 09:21 extremity edema chlorhexidine (From Allergy Intermediate Rash Verified 05/22/24 09:21 Hibiclens) losartan Allergy Intermediate Itching Verified 05/22/24 09:21 Cmigvme-QGY-SpT Reductase Allergy Intermediate LEG PAIN Verified 05/22/24 09:21 Inhibitor (Bdgfwyr-Nmh-Mco Reductase Inhibitor) EKG PATCHES Allergy Severe Blister Uncoded 05/22/24 09:21 Review of Systems 2 Review of Systems: All systems reviewed & are unremarkable except as noted in HPI and below Constitutional: Constitutional: Reports no additional constitutional complaints ENT: Reports system reviewed and no additional complaints, except as documented Cardiovascular: Cardiovascular: Reports no additional cardiovascular complaints Respiratory: Respiratory: Reports no additional respiratory complaints Musculoskeletal: Musculoskeletal: Reports no additional musculoskeletal complaints Neurologic: Reports system reviewed and no additional complaints, except as documented PMFSH Past Medical History Medical History Low bone mass Leakage of Watchman left atrial appendage closure device Colon polyp NSTEMI (non-ST elevated myocardial infarction) Sleep apnea, unspecified Afib Wellness examination Surgical History Surgical History History of sinus surgery History of foot surgery History of adenoidectomy History of tonsillectomy History of bladder suspension procedure History of nasal septoplasty History of bunionectomy History of shoulder replacement Family History Family History Father Hypertension Patient's father is Family history of coronary artery disease Family history of heart disease in male family member before age 55 Sibling Patient's sister is in good health Patient's brother is in good health Family history of malignant neoplasm No family history of cardiovascular disease Patient's sister is Family history of cardiovascular disease, Onset Age: 75 Family history of lupus erythematosus Family history of pancreatic cancer Family history of coronary artery disease Family history of malignant neoplasm of stomach Family history of scoliosis Family history of heart disease in male family member before age 55 Mother Family history of heart disease in male family member before age 55 Patient's mother is Family history of coronary artery disease Grandparent Family history of heart disease in male family member before age 55 Social History Social History Social History: Smoking status: Never smoker Second hand tobacco smoke exposure: No Alcohol intake: never Substance use: never Substance use type: does not use Do You Feel Safe in your Home?: Yes Lack of Transportation: No Lack of Food: Never True Current Housing: I Have Housing Concerned About Future Housing: No Difficulty Paying Gas/Electric Bills: No Difficulty Paying for Meds: No Currently Unemployed: YES Education: Decline to Answer Difficulty w/ Childcare or Family Care: No Living arrangements: with family Occupation/Education: retired Gender identity (if verbalized by the patient): Female Sexual Orientation (if Verbalized by the Patient): Straight or Heterosexual Spiritual care concerns: No Exam 2 Narrative: GENERAL: Well-appearing, well-nourished, and in no acute distress. HEAD: Normocephalic, atraumatic. EYES: PERRL and EOMI. ENT: Mucous membranes moist. NECK: Supple. CHEST: Clear to auscultation. No respiratory distress. HEART: Regular rate and rhythm. Normal peripheral pulses. ABDOMEN: Soft, nontender, nondistended. EXTREMITIES: Normal range of motion. No edema. Swelling of the left lateral malleolus with tenderness over the ATFL. Bruising noted. SKIN: Warm, dry, no rash. NEURO: NIH stroke scale 0. Alert and oriented x3. PSYCH: Normal mood and affect. Course Course Emergency Course: Admit for observation. Concerned about unprovoked syncope. Patient with ankle sprain. Accepted by hospitalist service. Vital Signs Vital signs: Vital Signs Temperature 97.3 F L 07/07/24 10:11 Pulse Rate 84 07/07/24 10:11 Respiratory Rate 18 07/07/24 10:11 Blood Pressure 124/71 07/07/24 10:11 Oxygen Delivery Room Air 07/07/24 10:11 Temperature 97.3 F L 07/07/24 10:11 Pulse Rate 70 07/07/24 16:02 Respiratory Rate 21 H 07/07/24 16:02 Blood Pressure 136/61 07/07/24 16:02 Pulse Oximetry 97 07/07/24 16:02 Oxygen Delivery Room Air 07/07/24 10:11 Medical Decision Making Vital Signs Vital Signs: Vital Signs Temperature 97.3 F L 07/07/24 10:11 Pulse Rate 84 07/07/24 10:11 Respiratory Rate 18 07/07/24 10:11 Blood Pressure 124/71 07/07/24 10:11 Oxygen Delivery Room Air 07/07/24 10:11 Temperature 97.3 F L 07/07/24 10:11 Pulse Rate 70 07/07/24 16:02 Respiratory Rate 21 H 07/07/24 16:02 Blood Pressure 136/61 07/07/24 16:02 Pulse Oximetry 97 07/07/24 16:02 Oxygen Delivery Room Air 07/07/24 10:11 Lab Data 07/07/24 11:58 07/07/24 11:58 Labs: Lab Results 07/07/24 Range/Units 11:58 WBC 10.0 (4.5-10.0) K/mm3 RBC 4.85 (4.2-5.4) M/mm3 Hgb 12.9 (12.0-15.0) g/dL Hct 41.2 (37.0-47.0) % MCV 84.9 (80-100) fl MCH 26.6 (26-34) pg MCHC 31.3 L (32-36) g/dl RDW 16.3 H (11.5-14.5) % Plt Count 385 H (150-375) k/mm3 MPV 9.1 (7.4-10.4) fl Immature Gran % (Auto) 0.3 (0-0.5) % Neut % (Auto) 66.1 (45.5-73.1) % Lymph % (Auto) 22.1 (18.3-44.2) % Isabela % (Auto) 7.7 (2.6-8.5) % Eos % (Auto) 3.5 (0-4.4) % Baso % (Auto) 0.3 (0.2-1.2) % Lymph # (Auto) 2.21 (0.9-3.2) K/mm3 Isabela # (Auto) 0.8 H (0.1-0.6) K/mm3 Eos # (Auto) 0.4 H (0-0.3) K/mm3 Baso # (Auto) 0.0 (0.0-0.1) K/mm3 Abs Immat Gran (auto) 0.03 (0.00-0.031) K/mm3 Absolute Neuts (auto) 6.6 (1.3-6.7) K/mm3 Absolute Nucleated RBC 0.000 (0.0-0.012) K/mm3 Nucleated RBC % 0.0 (0.0-0.2) % PT 13.7 (11.1-14.7) Seconds INR 1.0 APTT 29.8 (22.3-36.8) Seconds Sodium 135 L (137-145) mmol/L Potassium 4.0 (3.4-5.0) mmol/L Chloride 102 (98-107) mmol/L Carbon Dioxide 24 (22-30) mmol/L Anion Gap 9 (4-12) mmol/L BUN 26 H (7-17) mg/dL Creatinine 0.83 (0.7-1.0) mg/dL Estim Creat Clear Calc Not Reportable Estimated GFR > 60 (59 - ) Glucose 116 H (65-110) mg/dL Calcium 8.8 (8.4-10.2) mg/dL Total Bilirubin 0.7 (0.2-1.3) mg/dL AST 27 (14-36) U/L ALT 20 (6-35) U/L Alkaline Phosphatase 56 (38-126) U/L Troponin I < 0.012 (0.000-0.034) ng/mL Total Protein 7.0 (6.3-8.2) g/dL Albumin 4.2 (3.5-5.1) g/dL Imaging Data Radiologist's impression: ITS Impressions Head CT 07/07/24 11:32 IMPRESSION: No acute intracranial findings. Chest X-Ray 07/07/24 11:39 IMPRESSION: No acute cardiopulmonary pathology. Ankle X-Ray 07/07/24 11:40 IMPRESSION: No acute osseous abnormality left ankle. ECG Data EKG #1: ECG completion date: 07/07/24 ECG completion time: 11:49 EKG Interpretation: normal rate (72), sinus rhythm, normal QRS, normal QT, left axis and other (lvh) Discharge Plan Discharge Clinical Impression: Syncope, Ankle sprain Patient Disposition: Still a Patient Condition: Stable
--- NOTE | 2024-07-07 14:45 | P.HP_ITS ---
H&P: HPI History of Present Illness Date/Time: 07/07/24 14:45 Chief Complaint: Dizziness. Narrative: This is a pleasant 79-year-old female with history of non ST-elevation myocardial infarction found to have mild and nonobstructive coronary disease on cardiac catheterization, atrial fibrillation status post Watchman procedure, hypertension, breast cancer, obstructive sleep apnea on CPAP, and aortic root aneurysm which is monitored yearly who presented to the emergency department via private vehicle with complaints of left foot pain. She was feeling a bit ?woozy? when she got up yesterday morning but was able to go about her day in go to confucianist. Family members came to visit after confucianist and when they were getting ready to leave she stood up to walk them to the door at which time she began to feel dizzy and she states that her vision went black. The next thing she knows is that she was waking up on the floor and is presumed that she had a very brief loss of consciousness. Niece reports hearing a pop and the patient was complaining of pain in her left ankle after the fall. She has been elevating the foot and icing it but continues to have quite a bit of pain with weight-bearing. She also reports that the left ankle and foot felt a bit numb after the fall but that has improved. With further questioning she reports that over the last month she has been having intermittent episodes of lightheadedness/dizziness that seemed to occur most often with position changes though it is not a significant or longstanding problem. Since having her Watchman procedure, she has been taken off of most of her medication though she remains on a baby aspirin and a small dose of spironolactone. She has been eating and drinking as per usual. She has seasonal allergies and chronic sinus problems which have been worse recently for which she is currently on doxycycline. She denies fever, cough, focal weakness, facial droop, chest and pleuritic pain, racing heart, palpitations, orthopnea, paroxysmal nocturnal dyspnea, edema, nausea, vomiting, diarrhea, and dysuria. In the ED: Vital signs were stable on arrival. Labs were significant for a sodium of 135, BUN 26, troponin less than 0.012. EKG shows sinus rhythm with first-degree AV block, LVH in ST-T changes, borderline R-wave progression anterior leads, left axis deviation, and intraventricular conduction delay. Head CT did not show any acute findings but did note significant sinus disease. Chest x-ray was unremarkable. Left ankle x-ray showed no acute osseous abnormality. She is being admitted in this setting for syncopal workup. Review of Systems Review of Systems: 12 systems were reviewed and are negativ e except for as per HPI. [facility] Past Medical History Medical History (Updated 07/07/24 @ 19:13 by Olena Sweet PA-C) Paroxysmal atrial fibrillation Hypertension Breast cancer Aortic root aneurysm Coronary artery disease mild, nonobstructive disease on cardiac catheterization after STEMI per patient report Obstructive sleep apnea on CPAP Low bone mass Leakage of Watchman left atrial appendage closure device Colon polyp NSTEMI (non-ST elevated myocardial infarction) Surgical History Surgical History (Updated 07/07/24 @ 19:05 by Oelna Sweet PA-C) Presence of Watchman left atrial appendage closure device History of sinus surgery History of foot surgery History of adenoidectomy History of tonsillectomy History of bladder suspension procedure History of nasal septoplasty History of bunionectomy History of shoulder replacement Family History Family History Father Hypertension Patient's father is Family history of coronary artery disease Family history of heart disease in male family member before age 55 Sibling Patient's sister is in good health Patient's brother is in good health Family history of malignant neoplasm No family history of cardiovascular disease Patient's sister is Family history of cardiovascular disease, Onset Age: 75 Family history of lupus erythematosus Family history of pancreatic cancer Family history of coronary artery disease Family history of malignant neoplasm of stomach Family history of scoliosis Family history of heart disease in male family member before age 55 Mother Family history of heart disease in male family member before age 55 Patient's mother is Family history of coronary artery disease Grandparent Family history of heart disease in male family member before age 55 Social History Social History (Updated 07/07/24 @ 19:05 by Olena Sweet PA-C) Social History: Surrogate medical decision maker: Lizzette Vasquez, daughter. Code status: Full code. Smoking status: Never smoker Second hand tobacco smoke exposure: No Alcohol intake: never Substance use: never Substance use type: does not use Do You Feel Safe in your Home?: Yes Lack of Transportation: No Lack of Food: Never True Current Housing: I Have Housing Concerned About Future Housing: No Difficulty Paying Gas/Electric Bills: No Difficulty Paying for Meds: No Currently Unemployed: YES Education: Decline to Answer Difficulty w/ Childcare or Family Care: No Living arrangements: with family Additional living arrangements comments: . The patient lives in her own home in [place]. Is independent of activities of daily living. Occupation/Education: retired Spiritual care concerns: No Meds Home Medications and Allergies Home Medications ?Medication ?Instructions ?Recorded ?Confirmed ?Type ytxmeyee-vth-umshh ac 400 1 tablet PO DAILY 02/17/19 07/07/24 History mcg-calcium carb 500 mg-vit K1 20 mcg tablet (Women's 50 Plus Multivitamin) carboxymethylcellulose sodium 0.5 1 drp EACH EYE QID PRN Dry Eye(S) 09/01/21 07/07/24 History % eye drops in a dropperette (Refresh Plus) ascorbic acid (vitamin C) 2,000 mg 2,000 mg PO DAILY 06/19/22 07/07/24 History tablet,extended release fluticasone propionate 50 1 spray intranasal DAILY PRN 06/19/22 07/07/24 History mcg/actuation nasal Congestion spray,suspension acetaminophen 650 mg 650 mg PO Q6H 03/30/23 07/07/24 History tablet,extended release albuterol 90 mcg-budesonide 80 2 inh inhalation ONCE 07/02/24 07/07/24 History mcg/actuation HFA aerosol inhaler benzonatate 100 mg capsule 200 mg (2 x 100 mg) PO TID PRN 07/02/24 07/07/24 Rx cough #60 caps codeine 10 mg-guaifenesin 100 mg/5 5 ml PO Q6H #118 mL 07/02/24 07/07/24 Rx mL oral liquid doxycycline hyclate 100 mg capsule 100 mg PO BID 10 days #20 caps 07/02/24 07/07/24 Rx aspirin 81 mg tablet,delayed 81 mg PO DAILY 07/07/24 07/07/24 History release spironolactone 25 0.5 tablet PO DAILY 07/07/24 07/07/24 History mg-hydrochlorothiazide 25 mg tablet Allergies Allergy/AdvReac Type Severity Reaction Status Date / Time esomeprazole Allergy Severe Itching Verified 05/22/24 09:21 hydrocodone (From Vicodin) Allergy Severe Other Verified 05/22/24 09:21 lisinopril Allergy Severe coughing Verified 05/22/24 09:21 prob niacin Allergy Severe Redness of Verified 05/22/24 09:21 Skin omeprazole Allergy Severe ITCHING Verified 05/22/24 09:21 amlodipine Allergy Intermediate lower Verified 05/22/24 09:21 extremity edema chlorhexidine (From Allergy Intermediate Rash Verified 05/22/24 09:21 Hibiclens) losartan Allergy Intermediate Itching Verified 05/22/24 09:21 Iklrumi-GVZ-XtM Reductase Allergy Intermediate LEG PAIN Verified 05/22/24 09:21 Inhibitor (Htcxrbj-Eht-Jyz Reductase Inhibitor) EKG PATCHES Allergy Severe Blister Uncoded 05/22/24 09:21 Vital Signs Vital Signs - 24 hr 07/07/24 10:11 07/07/24 11:59 07/07/24 12:00 Temperature 97.3 F L Pulse Rate 84 70 66 Respiratory Rate 18 Blood Pressure 124/71 120/69 141/69 H Pulse Oximetry Oxygen Delivery Room Air 07/07/24 12:30 07/07/24 13:59 Temperature Pulse Rate 79 69 Respiratory Rate 18 20 Blood Pressure 149/71 H 129/68 Pulse Oximetry 94 99 Oxygen Delivery Exam Narrative: General: Well-developed, nontoxic-appearing female sitting up in bed in no distress. Weight: 75.6 kg. BMI: 26.9. HEENT: Normocephalic, atraumatic. PERRL, EOMI. Sclera anicteric. Oral mucosa moist. Neck: Supple. No obvious carotid bruits. Respiratory: Lungs are clear to auscultation bilaterally. Cardiovascular: Regular rate and rhythm with S1-S2. Gastrointestinal: Abdomen is soft, nontender, and nondistended with positive bowel sounds. Skin: Warm and dry. No rash or lesions on limited exam. Extremities: No cyanosis, clubbing, or edema. Radial and pedal pulses intact. Musculoskeletal: Edema and ecchymosis over the left lateral malleolus. Reports pain with inversion and eversion of the ankle. No gross deformities. Neurological: Alert. Cranial nerves 2-12 are grossly intact. Speech is clear. No facial asymmetry. No gross focal deficits to casual conversation. Psychiatric: Pleasant and cooperative with normal mood and affect. Judgment and insight intact. H&P: Results Labs Labs: Short CBC 07/07/24 Range/Units 11:58 WBC 10.0 (4.5-10.0) K/mm3 Hgb 12.9 (12.0-15.0) g/dL Hct 41.2 (37.0-47.0) % Plt Count 385 H (150-375) k/mm3 BMP 07/07/24 11:58 Sodium 135 L Potassium 4.0 Chloride 102 Carbon Dioxide 24 BUN 26 H Creatinine 0.83 Glucose 116 H Calcium 8.8 Cardiac Enzymes 07/07/24 Range/Units 11:58 Troponin I < 0.012 (0.000-0.034) ng/mL Liver Function 07/07/24 Range/Units 11:58 Total Bilirubin 0.7 (0.2-1.3) mg/dL AST 27 (14-36) U/L ALT 20 (6-35) U/L Alkaline Phosphatase 56 (38-126) U/L Albumin 4.2 (3.5-5.1) g/dL Impressions Head CT 07/07/24 11:32 IMPRESSION: No acute intracranial findings. Chest X-Ray 07/07/24 11:39 IMPRESSION: No acute cardiopulmonary pathology. Ankle X-Ray 07/07/24 11:40 IMPRESSION: No acute osseous abnormality left ankle. Assessment and Plan Assessment and plan (1) Syncope: Code(s): R55 - Syncope and collapse Status: Acute (2) Left ankle sprain: Code(s): S93.402A - Sprain of unspecified ligament of left ankle, initial encounter Status: Acute (3) Aortic root aneurysm: Code(s): I71.9 - Aortic aneurysm of unspecified site, without rupture Status: Acute (4) Hypertension: Code(s): I10 - Essential (primary) hypertension Status: Acute (5) Paroxysmal atrial fibrillation: Code(s): I48.0 - Paroxysmal atrial fibrillation Status: Acute (6) Sinus disease: Code(s): J34.9 - Unspecified disorder of nose and nasal sinuses Status: Acute Plan The patient presented to the emergency department for evaluation of left ankle pain after what sounds like a syncopal episode yesterday as detailed in HPI. Labs, imaging, EKG, and all reports were personally reviewed. On exam she looks to have a left ankle sprain and will be treated conservatively with rest, elevation, ice, and analgesics as needed. It sounds as though she had a syncopal episode yesterday, possibly related to orthostasis as her symptoms started shortly after she went from a as seated to standing position. She will be monitored on telemetry to rule out cardiac dysrhythmia. Check orthostatic vital signs and initiate fall precautions. Echocardiogram and carotid Doppler ultrasounds have been ordered for further evaluation. She has not had any issues with chest pain or discomfort thus will hold on chest CT. Blood pressures were reviewed and they have been stable. She saw her animal assistant within the last 6 months and her aortic root aneurysm is reportedly stable. She is status post Wa tchman procedure and is no longer on anticoagulation. Continue doxycycline which was recently prescribed for sinusitis. Her medications will be reviewed and resumed as appropriate. Findings and treatment plan were discussed with the patient and her daughter. Questions were solicited and answered to satisfaction. The patient's medical management will be taken over by the hospitalist team in a.m. Quality VTE Prophylaxis VTE prophylaxis: pharmacologic ordered The patient has been admitted under observation status. Hospitalist [facility] Advance Care Plan I have confirmed that the patient's Advanced Care Plan is present, code status is documented, or surrogate decision maker is listed in patient medical record.: Yes Medication Reconciliation I have utilized all available resources to obtain, update and review the patients current medications (includes all prescriptions, OTC, herbals, cannabis, and nutritional supplements).: Yes
--- NOTE | 2024-07-07 16:05 | PC.NURSE ---
Dinner tray ordered for patient
--- NOTE | 2024-07-07 17:53 | ADMGEN ---
This patient, Radha Castellanos, was admitted to Medical Room 249-01. Patient/family oriented to hospital policies and general routines including ID bracelet, bed and alarms, visiting hours, pain management, procedures, bathroom and other care routines, personal items, smoking policy, room service/diet, and visiting hours. Information on how to activate the Rapid Response Team has been discussed. Patient/Family are encouraged to report perceived risks to care and to ask questions if they do not understand what they are told or what they should do.
[2024-07-07 20:56] LABS: Add Urine Microscopic? NO; Appearance Urine Clear (Clear); Bilirubin Urine Negative (Negative); Blood Urine Negative (Negative); Color Urine Yellow (Yellow); Glucose Urine UA Negative (Negative); Ketones Urine Negative (Negative); Leukocyte Esterase Ur Negative LEU/UL (Negative); Nitrate Urine Negative (Negative); Protein Urine Negative (Negative); Specific Grav Ur 1.012 (1.001-1.035); Urobilinogen Urine 0.2 mg/dL (<2.0)
[2024-07-07] MEDS: DOXYCYCLINE HYCLATE 100 MG TABLET PO (21:29)
[2024-07-08] VITALS (9 sets, daily range): BP systolic 113–159; BP diastolic 54–62; PULSE 56–86; RESP 18–20; TEMP 36.5–36.6; O2SAT 94–97
[2024-07-08 05:37] LABS: Anion Gap 7 mmol/L (4-12); Blood Urea Nitrogen 19 mg/dL (7-17); Calcium 8.8 mg/dL (8.4-10.2); Carbon Dioxide 30 mmol/L (22-30); Chloride 99 mmol/L (98-107); Estimated CRCL calculation 46 ml/min; Estimated Glomerular Filt Rate > 60; Glucose 91 mg/dL (65-110); Magnesium 1.9 mg/dL (1.6-2.3); Potassium 4.2 mmol/L (3.4-5.0); Sodium 136 mmol/L (137-145)
--- NOTE | 2024-07-08 07:34 | P.PNIM_ITS ---
Progress Note: A&P Assessment and Plan (1) Syncope: Code(s): R55 - Syncope and collapse Status: Acute Assessment and Plan: Head CT with no acute findings UA negative for infection Echocardiogram pending Carotid Dopplers pending PT OT evaluate and treat Orthostatic vital signs monitoring manager EKG rhythm with first-degree AV block, LVH in ST-T changes Currently holding spironolactone hydrochlorothiazide (2) Left ankle sprain: Code(s): S93.402A - Sprain of unspecified ligament of left ankle, initial encounter Status: Acute Assessment and Plan: No acute fractures seen on x-ray PT OT evaluate and treat RICE (3) Hypertension: Code(s): I10 - Essential (primary) hypertension Status: Acute Assessment and Plan: Currently holding anti hypertensive due to syncope Monitor for fluid overload (4) Paroxysmal atrial fibrillation: Code(s): I48.0 - Paroxysmal atrial fibrillation Status: Acute Assessment and Plan: status post Watchman procedure and is no longer on anticoagulation. (5) Sinus disease: Code(s): J34.9 - Unspecified disorder of nose and nasal sinuses Status: Acute Assessment and Plan: Continue doxycycline which was recently prescribed for sinusitis (6) Aortic root aneurysm: Code(s): I71.9 - Aortic aneurysm of unspecified site, without rupture Status: Acute Assessment and Plan: She saw her boat driver within the last 6 months and her aortic root aneurysm is reportedly stable Time Spent With Patient Time with patient: Greater than 35 minutes Subjective Date/time seen: 07/08/24 07:34 Interval history: 79-year-old female with history of non ST-elevation myocardial infarction, atrial fibrillation status post Watchman procedure, hypertension, breast cancer, obstructive sleep apnea on CPAP, and aortic root aneurysm which is monitored yearly who presented with complaints of left foot pain after fall. Patient waiting to have echocardiogram and PT OT session, patient has no complaints at this time Review of Systems Review of Systems: 12 systems were reviewed and are negativ e except for as per HPI. Exam Narrative: General: Well-developed, nontoxic-appearing female sitting up in bed in no distress. Weight: 75.6 kg. BMI: 26.9. HEENT: Normocephalic, atraumatic. PERRL, EOMI. Sclera anicteric. Oral mucosa moist. Neck: Supple. No obvious carotid bruits. Respiratory: Lungs are clear to auscultation bilaterally. Cardiovascular: Regular rate and rhythm with S1-S2. Gastrointestinal: Abdomen is soft, nontender, and nondistended with positive bowel sounds. Skin: Warm and dry. No rash or lesions on limited exam. Extremities: No cyanosis, clubbing, or edema. Radial and pedal pulses intact. Musculoskeletal: Edema and ecchymosis over the left lateral malleolus. Reports pain with inversion and eversion of the ankle. No gross deformities. Neurological: Alert. Cranial nerves 2-12 are grossly intact. Speech is clear. No facial asymmetry. No gross focal deficits to casual conversation. Psychiatric: Pleasant and cooperative with normal mood and affect. Judgment and insight intact. Objective Data Vital Signs Vital Signs: Vital Signs - 24 hr 07/07/24 10:11 07/07/24 11:59 07/07/24 12:00 Temperature 97.3 F L Pulse Rate 84 70 66 Respiratory Rate 18 Blood Pressure 124/71 120/69 141/69 H Pulse Oximetry Oxygen Delivery Room Air 07/07/24 12:30 07/07/24 13:59 07/07/24 15:02 Temperature Pulse Rate 79 69 69 Respiratory Rate 18 20 20 Blood Pressure 149/71 H 129/68 142/56 H Pulse Oximetry 94 99 94 Oxygen Delivery 07/07/24 15:29 07/07/24 15:57 07/07/24 16:00 Temperature Pulse Rate 69 71 70 Respiratory Rate 16 14 17 Blood Pressure Pulse Oximetry 96 100 97 Oxygen Delivery 07/07/24 16:02 07/07/24 20:00 07/07/24 20:00 Temperature Pulse Rate 70 Respiratory Rate 21 H 20 Blood Pressure 136/61 Pulse Oximetry 97 Oxygen Delivery Room Air 07/07/24 20:35 07/08/24 00:00 07/08/24 04:00 Temperature 97.7 F Pulse Rate 64 61 56 L Respiratory Rate 20 Blood Pressure 164/56 H Pulse Oximetry 95 Oxygen Delivery 07/08/24 04:47 Temperature 97.8 F Pulse Rate 58 L Respiratory Rate 20 Blood Pressure 144/55 H Pulse Oximetry 94 Oxygen Delivery Intake/Output Intake/Output: Intake & Output 07/05/24 07/06/24 07/07/24 07/08/24 23:59 23:59 23:59 23:59 Intake Total 120 390 Balance 120 390 Meds/Results Medications: Active Medications Generic Name Dose Route Start Last Admin Trade Name Freq PRN Reason Stop Dose Admin Acetaminophen 650 mg 07/07/24 19:11 Acetaminophen 325 Mg Tablet PO Q6H PRN Mild Pain (1-3) or Fever Hydrocodone Bitart/Acetaminophen 1 tab 07/07/24 14:53 Hydrocodone/Acetaminophen (*Crx) 5-325 Mg Tablet PO Q4H PRN Pain Rated 4-6 Albuterol 2 puff 07/07/24 21:46 Albuterol Sulfate (*Sp) Aerosol 1 Puff INHALATION PRN PRN Shortness Of Breath Artificial Tears 1 drop 07/07/24 19:30 Artificial Tears Ophth Soln 15 Ml Bottle EACH EYE QID PRN Dry Eye(S) Ascorbic Acid 2,000 mg 07/08/24 09:00 Ascorbic Acid 500 Mg Tablet PO DAILY [facility] Aspirin 81 mg 07/08/24 09:00 Aspirin 81 Mg Enteric Tablet PO DAILY [facility] Doxycycline Hyclate 100 mg 07/07/24 21:00 07/07/24 21:29 Doxycycline Hyclate 100 Mg Tablet PO 07/11/24 21:01 100 mg Q12HR [facility] Administration Enoxaparin Sodium 40 mg 07/08/24 09:00 Enoxaparin 40 Mg/0.4 Ml Syringe SUB-Q DAILY [facility] Fluticasone Propionate 1 spray 07/07/24 19:12 Fluticasone Propionate 0.05% Na Spr 16 Gm Btl (*Bkc) NASAL DAILY PRN Congestion Multivitamins/Calcium 1 tablet 07/08/24 09:00 Therapeutic Multivitamins/Minerals Tab (*Bkc) PO DAILY [facility] Ondansetron HCl 4 mg 07/07/24 14:53 Ondansetron Inj 4 Mg/2 Ml Vial IV PUSH Q4H PRN Nausea Perflutren Lipid Microsphere 0 ml 07/07/24 19:11 Perflutren Lipid Microspheres 1.5 Ml Vial Diluted To 10 Ml Total Volume IV PUSH 07/10/24 19:11 ONCE PRN adequate visualization Protocol Radiology Results: ITS Impressions Head CT 07/07/24 11:32 IMPRESSION: No acute intracranial findings. Chest X-Ray 07/07/24 11:39 IMPRESSION: No acute cardiopulmonary pathology. Ankle X-Ray 07/07/24 11:40 IMPRESSION: No acute osseous abnormality left ankle. Labs Labs: Laboratory Results - last 24 hr 07/07/24 07/07/24 07/08/24 11:58 20:42 04:58 WBC 10.0 RBC 4.85 Hgb 12.9 Hct 41.2 MCV 84.9 MCH 26.6 MCHC 31.3 L RDW 16.3 H Plt Count 385 H MPV 9.1 Immature Gran % (Auto) 0.3 Neut % (Auto) 66.1 Lymph % (Auto) 22.1 [place] % (Auto) 7.7 Eos % (Auto) 3.5 Baso % (Auto) 0.3 Lymph # (Auto) 2.21 [place] # (Auto) 0.8 H Eos # (Auto) 0.4 H Baso # (Auto) 0.0 Abs Immat Gran (auto) 0.03 Absolute Neuts (auto) 6.6 Absolute Nucleated RBC 0.000 Nucleated RBC % 0.0 PT 13.7 INR 1.0 APTT 29.8 Sodium 135 L 136 L Potassium 4.0 4.2 Chloride 102 99 Carbon Dioxide 24 30 Anion Gap 9 7 BUN 26 H 19 H Creatinine 0.83 0.82 Estim Creat Clear Calc Not Reportable 46 Estimated GFR > 60 > 60 Glucose 116 H 91 Calcium 8.8 8.8 Magnesium 1.9 Total Bilirubin 0.7 AST 27 ALT 20 Alkaline Phosphatase 56 Troponin I < 0.012 Total Protein 7.0 Albumin 4.2 Urine Color Yellow Urine Appearance Clear Urine pH 6.0 Ur Specific [place] 1.012 Urine Protein Negative Urine Glucose (UA) Negative Urine Ketones Negative Ur Blood (Man) Negative Urine Nitrate Negative Urine Bilirubin Negative Urine Urobilinogen 0.2 Leukocyte Esterase Rfl Negative Quality VTE Prophylaxis VTE prophylaxis: pharmacologic ordered
[2024-07-08] MEDS: ASCORBIC ACID 500 MG TABLET 2000 MG PO (08:24)
[2024-07-08] MEDS: ASPIRIN 81 MG ENTERIC TABLET PO (08:24)
[2024-07-08] MEDS: THERAPEUTIC MULTIVITAMINS/MINERALS TAB (*BKC) 1 TABLET PO (08:24)
[2024-07-08] MEDS: DOCUSATE SODIUM 100 MG CAPSULE PO (08:24)
[2024-07-08] MEDS: DOXYCYCLINE HYCLATE 100 MG TABLET PO (08:24)
[2024-07-08] MEDS: ENOXAPARIN 40 MG/0.4 ML SYRINGE SUB-Q (08:24)
[2024-07-08 08:55] LABS: Anion Gap 10 mmol/L (4-12); Blood Urea Nitrogen 17 mg/dL (7-17); Calcium 9.1 mg/dL (8.4-10.2); Carbon Dioxide 29 mmol/L (22-30); Chloride 98 mmol/L (98-107); Estimated CRCL calculation 45 ml/min; Estimated Glomerular Filt Rate > 60; Glucose 103 mg/dL (65-110); Potassium 4.1 mmol/L (3.4-5.0); Sodium 137 mmol/L (137-145)
[2024-07-08 08:56] LABS: Basophils Percent Auto 0.6 % (0.2-1.2); Eosinophils Absolute Auto 0.3 K/mm3 (0-0.3); Eosinophils Percent Auto 4.2 % (0-4.4); Hematocrit 43.3 % (37.0-47.0); Hemoglobin 13.5 g/dL (12.0-15.0); Immature Granulocyte Absolute 0.04 K/mm3 (0.00-0.031); Immature Granulocyte Percent A 0.6 % (0-0.5); Lymphocytes Absolute Auto 2.06 K/mm3 (0.9-3.2); Lymphocytes Percent Auto 28.9 % (18.3-44.2); Mean Corpuscular HGB Conc 31.2 g/dl (32-36); Mean Corpuscular Hemoglobin 26.5 pg (26-34); Mean Corpuscular Volume 84.9 fl (80-100); Mean Platelet Volume 8.9 fl (7.4-10.4); Monocytes Absolute Auto 0.6 K/mm3 (0.1-0.6); Monocytes Percent Auto 8.3 % (2.6-8.5); Neutrophils Absolute Auto 4.1 K/mm3 (1.3-6.7); Neutrophils Percent Auto 57.4 % (45.5-73.1); Platelet Count Result 372 k/mm3 (150-375); Red Cell Distribution Width 16.5 % (11.5-14.5); White Blood Count 7.1 K/mm3 (4.5-10.0)
[2024-07-08] MEDS: PERFLUTREN LIPID MICROSPHERES 1.5 ML VIAL DILUTED TO 10 ML TOTAL VOLUME IV PUSH (11:45)
--- NOTE | 2024-07-08 12:04 | IVDEFINITY ---
Prior to administration of IV Definity the patient was educated on the risks and benefits of the imaging enhancing agent including potential adverse side effects. The patient verbalized understanding. Allergies were verified. No exclusion criteria were identified and at least one of the following inclusion criteria were met: 1) physician request, 2) patient technically difficult to image (per the [place] [employer] Echocardi[employer] guidelines of two or more segments not discernable within the apical view), or 3) questionable left ventricular function. ?
--- NOTE | 2024-07-08 14:56 | P.DS_ITS ---
DS: Admitting Diagnosis Discharge Date 07/08/24 Admitting Diagnosis Syncope DS: Discharge Diagnosis Discharge Diagnosis (1) Syncope: Code(s): R55 - Syncope and collapse Status: Acute Assessment and Plan: Head CT with no acute findings UA negative for infection Echocardiogram EF 60 65% Carotid Dopplers PT OT evaluate and treat Orthostatic vital signs case monitor EKG rhythm with first-degree AV block, LVH in ST-T changes Currently holding spironolactone hydrochlorothiazide (2) Left ankle sprain: Code(s): S93.402A - Sprain of unspecified ligament of left ankle, initial encounter Status: Acute Assessment and Plan: No acute fractures seen on x-ray PT OT evaluate and treat RICE (3) Hypertension: Code(s): I10 - Essential (primary) hypertension Status: Acute Assessment and Plan: Currently holding anti hypertensive due to syncope Monitor for fluid overload (4) Paroxysmal atrial fibrillation: Code(s): I48.0 - Paroxysmal atrial fibrillation Status: Acute Assessment and Plan: status post Watchman procedure and is no longer on anticoagulation. (5) Sinus disease: Code(s): J34.9 - Unspecified disorder of nose and nasal sinuses Status: Acute Assessment and Plan: Continue doxycycline which was recently prescribed for sinusitis (6) Aortic root aneurysm: Code(s): I71.9 - Aortic aneurysm of unspecified site, without rupture Status: Acute Assessment and Plan: She saw her buttonhole marker within the last 6 months and her aortic root aneurysm is reportedly stable DS: Summary Time Spent with Patient Time attestation: Total time spent providing and/or coordinating discharge services: Exam Narrative: General: Well-developed, nontoxic-appearing female sitting up in bed in no distress. Weight: 75.6 kg. BMI: 26.9. HEENT: Normocephalic, atraumatic. PERRL, EOMI. Sclera anicteric. Oral mucosa moist. Neck: Supple. No obvious carotid bruits. Respiratory: Lungs are clear to auscultation bilaterally. Cardiovascular: Regular rate and rhythm with S1-S2. Gastrointestinal: Abdomen is soft, nontender, and nondistended with positive bowel sounds. Skin: Warm and dry. No rash or lesions on limited exam. Extremities: No cyanosis, clubbing, or edema. Radial and pedal pulses intact. Musculoskeletal: Edema and ecchymosis over the left lateral malleolus. Reports pain with inversion and eversion of the ankle. No gross deformities. Neurological: Alert. Cranial nerves 2-12 are grossly intact. Speech is clear. No facial asymmetry. No gross focal deficits to casual conversation. Psychiatric: Pleasant and cooperative with normal mood and affect. Judgment and insight intact. DS: Data Data Completed and Pending Completed studies during hospitalization: Echocardiogram Summary 1. Definity contrast administered improved wall motion interpretation. 2. Left ventricular chamber dimension is normal. 3. Left ventricular systolic function is normal, estimated at 60-65%. 4. The left ventricular diastolic function is grade I diastolic dysfunction. 5. E/e' 9 is minimally elevated. 6. Left atrial chamber dimension is mildly enlarged. 7. There is mild aortic valve sclerosis. 8. There is moderate aortic valve regurgitation. 9. There is trace pulmonic regurgitation. 10. The aortic root size at the sinus of Valsalva is moderately dilated at 4.7 cm. 11. The prox ascending aorta size is moderately dilated at 4.7 cm. Carotid Dopplers IMPRESSION: 1. <50% stenosis in the right internal carotid artery. 2. <50% stenosis in the left internal carotid artery. Pending studies at discharge: None Labs on day of discharge: Labs from last 24 hours 07/08/24 07/08/24 07/07/24 08:10 04:58 20:42 WBC 7.1 RBC 5.10 Hgb 13.5 Hct 43.3 MCV 84.9 MCH 26.5 MCHC 31.2 L RDW 16.5 H Plt Count 372 MPV 8.9 Immature Gran % (Auto) 0.6 H Neut % (Auto) 57.4 Lymph % (Auto) 28.9 [place] % (Auto) 8.3 Eos % (Auto) 4.2 Baso % (Auto) 0.6 Lymph # (Auto) 2.06 [place] # (Auto) 0.6 Eos # (Auto) 0.3 Baso # (Auto) 0.0 Abs Immat Gran (auto) 0.04 H Absolute Neuts (auto) 4.1 Absolute Nucleated RBC 0.000 Nucleated RBC % 0.0 Sodium 137 136 L Potassium 4.1 4.2 Chloride 98 99 Carbon Dioxide 29 30 Anion Gap 10 7 BUN 17 19 H Creatinine 0.85 0.82 Estim Creat Clear Calc 45 46 Estimated GFR > 60 > 60 Glucose 103 91 Calcium 9.1 8.8 Magnesium 1.9 Urine Color Yellow Urine Appearance Clear Urine pH 6.0 Ur Specific [place] 1.012 Urine Protein Negative Urine Glucose (UA) Negative Urine Ketones Negative Ur Blood (Man) Negative Urine Nitrate Negative Urine Bilirubin Negative Urine Urobilinogen 0.2 Leukocyte Esterase Rfl Negative Discharge Plan Discharge Discharging Clinician: Joan Hong Anticipated Discharge Date/Time: 07/08/24 14:58 Patient Disposition: Home Activity: may shower Diet: regular Discharge Instructions: Discharge instructions: Take medications as prescribed New medications prescribed: Your not started on any new medications Continue your antibiotic for your sinus infection and prescribed by your primary care provider Your echo showed normal ejection fraction with left ventricular diastolic function is grade I diastolic dysfunction. Please follow-up with PCP, no new medications knee at this time. You are activity as tolerated Monitor blood pressures Avoid social areas, you wear a mask when in social settings Encouraged to continue with yearly vaccinations Return to the emergency department if he developed sudden shortness of breath, chest pain, nausea, vomiting, upset stomach or intractable diarrhea Return to the emergency department if you develop fever greater than 101.5 Follow-up with: Your primary care physician within 1-2 weeks for post hospitalization check up Thank you for [facility] for your healthcare needs Patient Instructions: Antibiotic Form Patient Language: Micronesian Stand Alone Forms: General Discharge Information Follow-up/Referrals: Stef Luciano MD [Primary Care Provider] - Discharge Medications: Continued carboxymethylcellulose sodium [Refresh Plus] 0.5 % dropperette 1 drp EACH EYE QID PRN (Reason: Dry Eye(S)) albuterol-budesonide 90-80 mcg/actuation HFA aerosol inhaler 2 inh inhalation ONCE Rx Instructions: as a single dose; may repeat up to 6 doses per day (12 inhalations) doxycycline hyclate 100 mg capsule 100 mg PO BID 10 Days Qty: 20 0RF benzonatate 100 mg capsule 200 mg PO TID PRN (Reason: cough) Qty: 60 0RF codeine-guaifenesin 10-100 mg/5 mL liquid 5 ml PO Q6H Qty: 118 0RF ascorbic acid (vitamin C) 2,000 mg Tablet Extended Release 2,000 mg PO DAILY fluticasone propionate [Flonase] 50 mcg/actuation [place],Suspension 1 spray INTRANASAL DAILY PRN (Reason: Congestion) Rx Instructions: administer into each nostril aspirin 81 mg tablet,delayed release (DR/EC) 81 mg PO DAILY spironolacton-hydrochlorothiaz 25-25 mg tablet 0.5 tablet PO DAILY acetaminophen [Tylenol Arthritis] 650 mg Tablet Extended Release 650 mg PO Q6H Women's 50 Plus Multivitamin 400 mcg-500 mg calcium-20 mcg tablet 1 tablet PO DAILY Other Ambulatory Orders: OT Outpatient Eval and Treat (ONCE) Timeframe: 20240722 Location: Determined by Patient Ordered By: Joan Hong PT Outpatient Eval and Treat (ONCE) Timeframe: 20240722 Location: Determined by Patient Ordered By: Joan Hong Date of admission: 07/07/24 14:54 Primary Care Provider: Stef Luciano Admitting Provider: Abdelrahman Castillo Attending physician on admission: Abdelrahman Castillo Condition: Stable Quality VTE Prophylaxis VTE prophylaxis: pharmacologic ordered Hospitalist MIPS Heart Failure (Exclusion) Patient has history of Heart Transplant or Left Ventricular Assistive Device?: No IF YES, STOP HERE Heart Failure (Qualifier) Patient has current or prior documentation of LVEF less than or equal to 40%, or mod/servere depressed LVSF?: No IF NO, STOP HERE
--- NOTE | 2024-07-08 19:11 | ECHO_ITS ---
Patient Info Name: Radha Castellanos Age: 79 years : 1945 Gender: Female Ht: 66 in Wt: 166 lbs BSA: 1.89 m2 HR: 59 bpm BP: 144 / 55 mmHg Technical Quality: Fair Exam Date: 07/08/2024 11:14 AM Exam Location: Echo Lab Patient Status: Inpatient Admit Date: 07/07/2024 Staff Ordering Physician: Olena Sweet PA-C Engine Repairer Service: Jo Quezada RDCS Attending Provider: Abdelrahman Castillo MD Referring Physician: Micki LACEY; Exam Type: CA echo dop color flow w con Study Info Indications - Aortic root dilation - Syncope Complete two-dimensional, color flow and Doppler transthoracic echocardiogram is performed with contrast to opacify the left ventricle and to improve the deliniation of the left ventricle endocardial borders. Contrast/Agitated Saline Contrast/Ag. Saline: Definity Amount: 2.00 ml Existing IV Access: Yes IV Access Condition: patent with no signs of infiltration Summary 1. Definity contrast administered improved wall motion interpretation. 2. Left ventricular chamber dimension is normal. 3. Left ventricular systolic function is normal, estimated at 60-65%. 4. The left ventricular diastolic function is grade I diastolic dysfunction. 5. E/e' 9 is minimally elevated. 6. Left atrial chamber dimension is mildly enlarged. 7. There is mild aortic valve sclerosis. 8. There is moderate aortic valve regurgitation. 9. There is trace pulmonic regurgitation. 10. The aortic root size at the sinus of Valsalva is moderately dilated at 4.7 cm. 11. The prox ascending aorta size is moderately dilated at 4.7 cm. Left Ventricle Definity contrast administered improved wall motion interpretation. E/e' 9 is minimally elevated. Left ventricular chamber dimension is normal. Left ventricular systolic function is normal, estimated at 60-65%. The left ventricular diastolic function is grade I diastolic dysfunction. Right Ventricle Right ventricular systolic function is normal and with normal TAPSE 1.8 cm. Right ventricular chamber dimension is normal. Left Atria Left atrial chamber dimension is mildly enlarged. Right Atria Right atrial chamber dimension is normal. Aortic Valve The aortic valve is trileaflet. There is mild aortic valve sclerosis. There is no aortic valve stenosis. There is moderate aortic valve regurgitation. Pulmonic Valve There is trace pulmonic regurgitation. Mitral Valve There is no mitral valve stenosis. There is no mitral valve regurgitation. Tricuspid Valve There is no tricuspid valve regurgitation. Pericardium/Pleural There is no pericardial effusion. Inferior Vena Cava Normal inferior vena cava with >50% collapse upon inspiration consistent with normal right atrial pressure, 5 mmHg. Aorta The aortic root size at the sinus of Valsalva is moderately dilated at 4.7 cm. The prox ascending aorta size is moderately dilated at 4.7 cm. Left Ventricular Outflow Tract Name Value Normal LVOT 2D LVOT Diameter 2.04 cm LVOT Doppler LVOT Peak Gradient 5 mmHg LVOT Mean Gradient 3 mmHg LVOT VTI 24.15 cm LVOT VTI/AV VTI Ratio 0.89 LVOT Stroke Volume 78.91 ml LVOT CO 14.55 l/min LVOT CI 7.71 L/min/m2 Pulmonic Valve Name Value Normal PV Doppler PV Peak Gradient 3 mmHg Mitral Valve Name Value Normal MV Doppler MV Decel [place] 194.82 cm/s2 MV PHT 0 s MV Area (PHT) 3.88 cm2 4.00-5.00 MV Diastolic Function MV E Peak Velocity 38.13 cm/s MV A Peak Velocity 73.28 cm/s MV E/A 0.52 MV Decel Time 0 s MV Annular TDI MV E/e' (Septal) 9.52 <=8.00 MV E/e' (Lateral) 9.16 <=8.00 MV E/e' (Average) 9.34 Tricuspid Valve Name Value Normal Estimated PAP/RSVP RA Pressure 5 mmHg <=5 Aorta Name Value Normal Ascending Aorta Ao Root Diameter (MM) 4.83 cm Ao Root Diam Index (MM) 2.56 cm/m2 Aortic Valve Name Value Normal AV Doppler AV Peak Velocity 122.94 cm/s AV Peak Gradient 6 mmHg AV Mean Gradient 4 mmHg AV VTI 27.21 cm AV Area (Cont Eq VTI) 2.90 cm2 >=3.00 AV Area (Cont Eq Yan) 3.02 cm2 AV Regurgitation 2D LVOT Area 3.27 cm2 AV Regurgitation Doppler AR Decel Time 3 s AR Decel [place] 126.90 cm/s2 AR PHT 1 s Ventricles Name Value Normal LV Dimensions 2D/MM IVS Diastolic Thickness (2D) 1.10 cm 0.60-1.00 LVID Diastole (2D) 5.07 cm 3.80-5.20 LVIW Diastolic Thickness (2D) 1.05 cm 0.60-0.90 LVID Systole (2D) 4.01 cm 2.20-3.50 LVOT Diameter 2.04 cm LV Mass (2D Cubed) 205.70 g 67.00-162.00 LV Mass Index (2D Cubed) 0.01 g/cm2 0.00-0.01 Relative Wall Thickness (2D) 0.42 LV Fractional Shortening/Ejection Fraction 2D/MM LV Fractional Shortening (2D) 21 % 27-45 LV EF (2D Teicholz) 42 % 54-74 LV Diastolic Volume (4C MOD) 100.88 ml LV EF (4C MOD) 47 % LV Diastolic Volume (2C MOD) 155.49 ml LV EF (2C MOD) 54 % LV Diastolic Volume (BP MOD) 125.51 ml 46.00-106.00 LV Diastolic Volume Index (BP MOD) 0.07 l/m2 0.03-0.06 LV Systolic Volume (BP MOD) 63.97 ml 14.00-42.00 LV Systolic Volume Index (BP MOD) 0.03 l/m2 0.01-0.02 LV EF (BP MOD) 49 % 54-74 LV Diastolic Length (4C) 7.49 cm LV Systolic Length (4C) 6.23 cm LV Stroke Volume (4C MOD) 47.30 ml RV Dimensions 2D/MM RVID Diastole (2D) 3.03 cm 2.50-3.50 Atria Name Value Normal LA Dimensions LA Dimension (MM) 2.88 cm 2.70-3.80 LA Volume (4C A-L) 61.07 ml LA Volume (BP A-L) 57.30 ml RA Dimensions RA Area (4C) 17.20 cm2 <=18.00 Report Signatures
== END 2024-07-08 15:28 | disposition home or self-care (01) ==
LOC: ANHED 11:58 → ANH3MEDSUR 15:36 → ANH2MED 17:32
PROVIDERS: Nurse Practitioner Gerontology; Physician Assistant; Admitting Provider Internal Medicine; Emergency Provider Emergency Medicine; PCP Family Medicine; Visit Provider Internal Medicine
DX: R55 Syncope and collapse (principal); S93.402A Sprain of unspecified ligament of left ankle, initial encounter; W18.30XA Fall on same level, unspecified, initial encounter; I10 Essential (primary) hypertension; I48.0 Paroxysmal atrial fibrillation; J34.9 Unspecified disorder of nose and nasal sinuses; I71.9 Aortic aneurysm of unspecified site, without rupture; I25.10 Atherosclerotic heart disease of native coronary artery without angina pectoris; I25.2 Old myocardial infarction; Z85.3 Personal history of malignant neoplasm of breast; G47.33 Obstructive sleep apnea (adult) (pediatric); Z99.89 Dependence on other enabling machines and devices; M85.9 Disorder of bone density and structure, unspecified; Z79.51 Long term (current) use of inhaled steroids; Z79.82 Long term (current) use of aspirin; Z79.899 Other long term (current) drug therapy; Z86.0100 Personal history of colon polyps, unspecified; Z98.890 Other specified postprocedural states
CPT/HCPCS: 36415; 70450; 71046; 73610; 80048; 80053; 81003; 83735; 84484; 85025; 85610; 85730; 93005; 93880; 96372; 96374; 97161; 97165; 99284; A9270; C8929; G0378; J1650; Q9957